=== PATIENT | female | born 1950 | race Caucasian/White ===

== ENCOUNTER 2020-03-13 16:47 | Outpatient (CLI) | payer MEDICARE | END 2020-03-13 16:48 | disposition critical access hospital (66) | LOC: EMS 16:47 | PROVIDERS: ATTEND Surgery | DX: R53.1 Weakness (principal) | CPT/HCPCS: A0425; A0429 ==

== ENCOUNTER 2020-03-13 17:29 | Inpatient (IN) | payer MEDICARE ==
--- NOTE | 2020-03-13 18:02 | XRAY Report ---
PROCEDURE: Chest 1 View X-Ray INDICATIONS: Chest Pain TECHNIQUE: One view of the chest was acquired. COMPARISON: None FINDINGS: Surgical changes and devices: None. Lungs and pleura: No pleural effusions or pneumothorax. There are diffuse interstitial radiopacities . Mediastinum: Mediastinal contours appear normal. Heart size is mildly enlarged. Bones and chest wall: No suspicious bony lesions. Overlying soft tissues appear unremarkable. IMPRESSION: 1. Diffuse interstitial radiopacities and cardiomegaly suggesting mild congestive failure. Reviewed by: Leila Recinos MD on 03/13/2020 5:00 PM AMY Approved by: Leila Recinos MD on 03/13/2020 5:00 PM AMY Station ID: [id number]
[2020-03-13 18:16] LABS: BASOPHILS % (AUTO) 0.3 %; EOSINOPHILS % (AUTO) 0.1 %; HGB - HEMOGLOBIN 12.3 g/dL (12.0-16.0); LYMPHOCYTES % (AUTO) 3.4 %; MEAN CORPUSCULAR HEMOGLOBIN 30.4 pg (27.0-31.0); MEAN CORPUSCULAR HGB CONC 32.3 g/dL (32.0-36.0); MEAN CORPUSCULAR VOLUME 94.3 fL (81.0-99.0); MEAN PLATELET VOLUME 11.4 fL (7.9-10.8); MONOCYTES % (AUTO) 7.6 %; NEUTROPHILS % (AUTO) 87.3 %; PLT - PLATELET COUNT 402 10^3/uL (130-450); RED BLOOD COUNT 4.04 10^6/uL (4.20-5.40); RED CELL DISTRIBUTION WIDTH 14.1 % (12.0-15.0); WHITE BLOOD COUNT 26.2 x10^3/uL (4.8-10.8)
[2020-03-13 18:28] LABS: ABNORMAL LYMPHS % (MANUAL) 0 %
[2020-03-13 18:34] LABS: ALBUMIN 3.2 g/dL (3.2-5.5); ALBUMIN/GLOBULIN RATIO 0.7 (1.0-2.2); BILIRUBIN,TOTAL 0.9 mg/dL (0.2-1.0); CALCIUM 9.2 mg/dL (8.5-10.3); CREATININE 0.7 mg/dL (0.4-1.0); TOTAL PROTEIN 7.5 g/dL (6.7-8.2)
--- NOTE | 2020-03-13 18:46 | ED Physician Documentation ---
History of Present Illness - Stated complaint Stated Complaint: UNABLE TO WALK - Chief complaint Chief Complaint: General - Additonal information Additional information: 69-year-old female presents to the emergency department because she was unable to get out of her vehicle. She reports that for a long time perhaps at least a few months that she is only been able to walk a very short distance. When she goes to the store she will typically use a scooter in the store. Today when she returned home she simply could not to get out of her car and called the ambulance. Therefore she is here for evaluation. Patient denies chest pain or shortness of breath. She denies that she has any fevers. She denies belly pain or dysuria. She reports that she has not been to a doctor in many years and takes no prescribed medications. She does report to me that she lives alone and does not have any running water. On exam she has very very poor hygiene. Both of her lower legs are quite, swollen and erythematous, dirty with multiple venous stasis ulcers noted. She also has a very large decubitus on her left heel that due to contamination I am unable to stage at this time Review of Systems Constitutional: reports: Reviewed and negative Ears: reports: Reviewed and negative Nose: reports: Reviewed and negative Throat: reports: Reviewed and negative Cardiac: reports: Reviewed and negative Respiratory: reports: Reviewed and negative GI: reports: Reviewed and negative : reports: Reviewed and negative Skin: reports: Lesions (BLE; decubitus ulcer left heel; venous stasis ulcer's BLE) Musculoskeletal: reports: Reviewed and negative Neurologic: reports: Reviewed and negative PD PAST MEDICAL HISTORY - Past Medical History Cardiovascular: None Respiratory: None Neuro: None Endocrine/Autoimmune: None GI: None : None HEENT: None Psych: None Musculoskeletal: None Derm: None - Past Surgical History Past Surgical History: No - Present Medications Home Medications: Ambulatory Orders Medication Instructions Recorded Confirmed No Known Home Medications 03/13/20 03/13/20 - Allergies Allergies/Adverse Reactions: Allergies Allergy/AdvReac Type Severity Reaction Status Date / Time No Known Drug Allergies Allergy Verified 03/13/20 17:38 - Social History Does the pt smoke?: No Smoking Status: Never smoker Does the pt drink ETOH?: No Does the pt have substance abuse?: No - Immunizations Immunizations are current?: No PD ED PE EXPANDED - General General: Alert, No acute distress, Disheveled, poorly kept, Other (generally dirty, poor hygeine) - HEENT HEENT: PERRL - Eyes Eyes: PERRL, Normal accommodation - Neck Neck: Supple w/out meningeal sx, No tenderness. No: JVD present - Cardiac Cardiac: Regular Rate, Regular Rhythm, Murmur Present, Radial strong equal, Pedal strong equal, Cap refill < 2 sec - Respiratory Respiratory: Clear to ausultation miguel. No: Distress, Labored - Abdomen Abdomen: Normal Bowel sounds. No: Tender to palpation - Extremities Extremities: Other (Grossly swollen bilateral lower extremities from the toes to the knees. Significant erythema of both legs with multiple venous stasis ulcers bilaterally. The left heel with a large 3 x 4 cm decubitus ulcer. Due to decontamination I am unable to visualize the bed of the wound.) Results - Vitals Vitals: Vital Signs - 24 hr 03/13/20 03/13/20 03/13/20 17:38 18:13 20:00 Temperature 36.9 C 37 C Heart Rate 56 L 85 89 Respiratory 18 19 20 Rate Blood Pressure 121/99 H 114/101 H 110/80 O2 Saturation 100 100 98 Oxygen O2 Source Room air - Labs Labs: Laboratory Tests 03/13/20 03/13/20 03/13/20 18:00 18:00 18:00 WBC 26.2 H RBC 4.04 L Hgb 12.3 Hct 38.1 MCV 94.3 MCH 30.4 MCHC 32.3 RDW 14.1 Plt Count 402 MPV 11.4 H Neut # (Auto) Not Reportable Lymph # (Auto) Not Reportable [place] # (Auto) Not Reportable Eos # (Auto) Not Reportable Baso # (Auto) Not Reportable Absolute Nucleated RBC Not Reportable Total Counted 100 Band Neuts % (Manual) 3 Abnorm Lymph % (Manual) 0 Nucleated RBC % Not Reportable Neutrophils # (Manual) 23.3 H Lymphocytes # (Manual) 0.8 L Monocytes # (Manual) 2.1 H Eosinophils # (Manual) 0.0 Basophils # (Manual) 0.0 Differential Comment MANUAL DIFFERENTIAL Platelet Estimate NORMAL (130-450,000) Platelet Morphology NORMAL APPEARANCE RBC Morph Micro Appear NORMAL APPEARANCE Sodium 136 Potassium 2.6 L Chloride 97 L Carbon Dioxide 24 Anion Gap 15.0 H BUN 28 H Creatinine 0.7 Estimated GFR (MDRD) 83 L Glucose 120 H Lactic Acid Calcium 9.2 Total Bilirubin 0.9 AST 43 H ALT 41 Alkaline Phosphatase 128 H Troponin I High Sens 26.9 H* B-Natriuretic Peptide Total Protein 7.5 Albumin 3.2 Globulin 4.3 H Albumin/Globulin Ratio 0.7 L Lipase 21 L TSH Urine Color Urine Clarity Urine pH Ur Specific [place] Urine Protein Urine Glucose (UA) Urine Ketones Urine Occult Blood Urine Nitrite Urine Bilirubin Urine Urobilinogen Ur Leukocyte Esterase Urine RBC Urine WBC Ur Squamous Epith Cells Urine Bacteria Urine Casts Ur Microscopic Review Urine Culture Comments 03/13/20 03/13/20 03/13/20 18:00 18:00 18:58 WBC RBC Hgb Hct MCV MCH MCHC RDW Plt Count MPV Neut # (Auto) Lymph # (Auto) [place] # (Auto) Eos # (Auto) Baso # (Auto) Absolute Nucleated RBC Total Counted Band Neuts % (Manual) Abnorm Lymph % (Manual) Nucleated RBC % Neutrophils # (Manual) Lymphocytes # (Manual) Monocytes # (Manual) Eosinophils # (Manual) Basophils # (Manual) Differential Comment Platelet Estimate Platelet Morphology RBC Morph Micro Appear Sodium Potassium Chloride Carbon Dioxide Anion Gap BUN Creatinine Estimated GFR (MDRD) Glucose Lactic Acid 1.2 Calcium Total Bilirubin AST ALT Alkaline Phosphatase Troponin I High Sens B-Natriuretic Peptide 110 H Total Protein Albumin Globulin Albumin/Globulin Ratio Lipase TSH 2.05 Urine Color Urine Clarity Urine pH Ur Specific [place] Urine Protein Urine Glucose (UA) Urine Ketones Urine Occult Blood Urine Nitrite Urine Bilirubin Urine Urobilinogen Ur Leukocyte Esterase Urine RBC Urine WBC Ur Squamous Epith Cells Urine Bacteria Urine Casts Ur Microscopic Review Urine Culture Comments 03/13/20 03/13/20 19:30 19:35 WBC RBC Hgb Hct MCV MCH MCHC RDW Plt Count MPV Neut # (Auto) Lymph # (Auto) [place] # (Auto) Eos # (Auto) Baso # (Auto) Absolute Nucleated RBC Total Counted Band Neuts % (Manual) Abnorm Lymph % (Manual) Nucleated RBC % Neutrophils # (Manual) Lymphocytes # (Manual) Monocytes # (Manual) Eosinophils # (Manual) Basophils # (Manual) Differential Comment Platelet Estimate Platelet Morphology RBC Morph Micro Appear Sodium Potassium Chloride Carbon Dioxide Anion Gap BUN Creatinine Estimated GFR (MDRD) Glucose Lactic Acid Calcium Total Bilirubin AST ALT Alkaline Phosphatase Troponin I High Sens 26.5 H* B-Natriuretic Peptide Total Protein Albumin Globulin Albumin/Globulin Ratio Lipase TSH Urine Color YELLOW Urine Clarity CLEAR Urine pH 6.0 Ur Specific [place] 1.025 Urine Protein 30 H Urine Glucose (UA) NEGATIVE Urine Ketones TRACE Urine Occult Blood NEGATIVE Urine Nitrite NEGATIVE Urine Bilirubin NEGATIVE Urine Urobilinogen 1 (NORMAL) Ur Leukocyte Esterase NEGATIVE Urine RBC None Seen Urine WBC 0-3 Ur Squamous Epith Cells RARE Squamous Urine Bacteria None Seen Urine Casts 3-5 Hyaline Casts Ur Microscopic Review INDICATED Urine Culture Comments NOT INDICATED PD MEDICAL DECISION MAKING - ED course Complexity details: reviewed results, re-evaluated patient, considered d ifferential, d/w patient, d/w web consultant (Felisha Keys MD) ED course: 69-year-old female presents to the emergency department because she could not exit her vehicle after going to the store. It appears that she has been having progressive lower extremity swelling over the last few months. She states that she did not realize that her legs were swollen but she has been having more difficulty getting around and has been using a scooter when she goes to the store. On presentation she had significant swelling of the lower extremities with cellulitis. There were multiple superficial ulcers on the anterior shins and posterior pemberton most consistent with the venous stasis ulcerations. She also has 2 very large decubitus ulcers on both of her heels that were grossly contam inated with dirt and debris. On exam she does have marked leukocytosis. She did not have an elevated lactic acid and her vital signs were otherwise normal. She does not present as septic or in septic shock. Her urine was evaluated and grossly contaminated. The likely source of leukocytosis is her lower extremity wounds. I did start her on vancomycin. Also of concern is a mildly elevated BNP. Though it is only 100, given her morbid obesity it is likely falsely decreased. Her chest x-ray does show an interstitial pattern most consistent with some heart failure. An echogardiogram for the AM is pending. There is also concerned that this older lady has been living alone without running water at her house which is likely contributing to the dirty contaminated wounds that she reports that she has been unable to shower. Nursing staff did make an APS report. As patient was not able to safely exit the bed in the emergency department, could not ambulate I did not feel that she could be safely discharged with oral antibiotics and therefore presented the case for admission to Dr. Keys. She will be brought into the hospital for IV antibiotics and further wound care and evaluation. She is noted to be hypokalemic with a potassium of 2.6. I did initiate potassium replacement here in the emergency department. Departure - Departure Disposition: 67 [facility] DC/Xfer Clinical Impression: Cellulitis, Decubitus ulcer, Ventricular bigeminy Discharge Date/Time: 03/13/20 20:53
[2020-03-13 18:53] LABS: BAND NEUTROPHILS % (MANUAL) 3 %; LYMPHOCYTES # (MANUAL) 0.8 10^3/uL (1.5-3.5); LYMPHOCYTES % (MANUAL) 3 %; MONOCYTES # (MANUAL) 2.1 10^3/uL (0.0-1.0)
[2020-03-13 18:54] LABS: DIFFERENTIAL COMMENT MANUAL DIFFERENTIAL; PLATELET ESTIMATE, MANUAL NORMAL (130-450,000) (NORMAL); PLATELET MORPHOLOGY NORMAL APPEARANCE (NORMAL); RBC MORPHOLOGY (MULTIPLE) NORMAL APPEARANCE (NORMAL)
[2020-03-13 19:51] LABS: GLUCOSE, URINE (UA) NEGATIVE (NEGATIVE); KETONES,URINE (UA) TRACE mg/dL (NEGATIVE); LEUKOCYTE ESTERASE, URINE NEGATIVE (NEGATIVE); NITRITE,URINE NEGATIVE (NEGATIVE); OCCULT BLOOD,URINE NEGATIVE (NEGATIVE); PROTEIN,URINE 30 mg/dL (NEGATIVE); UROBILINOGEN,URINE 1 (NORMAL) E.U./dL (NORMAL)
[2020-03-13 19:57] LABS: BILIRUBIN,URINE NEGATIVE (NEGATIVE); CLARITY,URINE CLEAR (CLEAR); ICTOTEST,URINE NEGATIVE
[2020-03-13] MEDS ORDERED: ONDANSETRON ODT 4 MG TABLET TL PRN (20:02)
[2020-03-13] MEDS ORDERED: oxyCODONE 5 MG TABLET PO PRN (20:02)
[2020-03-13] MEDS ORDERED: ONDANSETRON 4 MG/2 ML VIAL IVP PRN (20:02)
[2020-03-13] MEDS ORDERED: SODIUM CHLORIDE FLUSH 0.9% 10 ML SYRINGE IVP PRN (20:02)
[2020-03-13 20:05] LABS: BACTERIA,URINE None Seen /HPF (None Seen); CASTS, URINE 3-5 Hyaline Casts /LPF; RBC,URINE None Seen /HPF (0-5); SQUAMOUS EPITHELIAL CELL,UR RARE Squamous (<= Few)
--- NOTE | 2020-03-13 20:15 | HISTORY & PHYSICAL EXAMINATION ---
Chief Complaint - Chief Complaint Chief Complaint: weakness and can't get out of car History of Present Illness - Admitted From Admitted From:: Home via EMS - History Obtained From Records Reviewed: [facility] History obtained from: Chanelle MABRY Exam Limitations: none - History of Present Illness HPI Comment/Other: 69-year-old female who is 5 foot 3 inches tall and weighs 114 kg that presents to the emergency room via EMS, unable to get out of her car to ambulate into her home. She lives alone, but her house does not have running water For the last 2 months because a pipe broke. She just has not gotten around to getting it fixed. She does not have a primary care provider. She takes no medications on a regular basis. She had gone to the grocery store in a car, came back and try to get out of her car and realized that her legs were aching so tremendously she just could not make it. She was hoping that EMS would just take her into her home when she called them. But her home situation is not livable. As such EMS brought her to the emergency room. She states that she has been getting gradually weaker and weaker.This is over the last couple of weeks. She cannot really say why. She denies fever, cough, chills. She denies urgency, frequency dysuria. In 2016 she almost fell down the steps in her house and has been terrified of falling ever since. So she has been spending more more time downstairs. She spends most of her time sedentary, watching DVDs and getting caught up on TV shows that she did not watch when she was really working. She has noticed that her legs are getting more swollen but has not really paid attention to that. Her legs are painful are in her calves because of ulcers. Her heels are not very painful to stand on now. She recognizes that she is developed skin breakdown from sitting down for too long but cannot figure out why. She does not think that this is so severe. When she got into her car and drove to [facility], she uses the scooter there to get around. She spends most of her time sitting or laying. She cannot say why. She does not remember having high blood pressure, diabetes, or any diseases for which she takes medications. She does not like doctors and will not see 1.She is to have a fairly active life in her correction. She went to the [employer] with girlfriends, took short walks with him. Went out to restaurants. But ever since Covid, she has not left her house in months. In the emergency room she was evaluated by CLOTILDE Rievra. Afebrile, heart rate 56, 100% room air saturated, respirations 18 and unlabored and a blood pressure of 121/99. Physical exam without of an exceedingly disheveled morbidly obese female that had severe, severe bad body odor. Pertinent findings included swollen legs with venous stasis, ulcers on her legs, and decubitus ulcers of her heels. On laboratory studies she is hypokalemic, BUN is 28. White cell count is 26.2. Urinalysis is contaminated with squamous cells. Culture not indicated. Chest x-ray has diffuse interstitial radiopacities and cardiomegaly suggestive of mild congestive heart failure. Her BNP is 110. TSH is 2.05. Lactic acid 1.2. She is now admitted to the hospital to treat the cellulitis of her legs, decubitus ulcers of her heels, and evaluate for possible new onset congestive heart failure. 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 He had metastatic prostate cancer. Mom just March 2019 of complications of ulcerative colitis after being in the hospital for a month. The patient's brother was supposed to be taking care of her, but he is an alcoholic, was failing to give her her medications and feed her and she ended up dying of complications. 1 brother is an alcoholic. 1 sister is healthy without high blood pressure, diabetes, dementia, heart attack, stroke. 2 children are completely healthy. Daughter lives in [place], and son lives in [place]. Living arrangement: At home Living Situation: Alone Social History Notes: Never smoked. Never really drank. No history of recreational substance abuse. She is happily . Says that the best thing in her life was retiring. She works for [employer] for close to 25 years. 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 She loves being at home by herself. So the pandemic situation is something that did not bother her. She does not have any understanding that her self neglect may have led to this current situation. She stoutly maintains that she is able to take care of herself. She does not want us to discuss any of this with her daughter. Taiwo kinsey will be coming over from [place] tomorrow. I have explained to her that Adult Protective Services will most likely be notified. It would help if she, social work, and the daughter can sit down to discuss how to move forward and keep her safe. - Substance History Use: Uses substance without health or social issues: NONE Abuse: Recurrent use of substance despite neg consequences: NONE Dependence: Experiences withdrawal or developed tolerances: NONE - POLST Patient has POLST: No POLST Status: Full Code Meds/Allgy - Home Medications Home Medications: Ambulatory Orders Medication Instructions Recorded Confirmed No Known Home Medications 03/13/20 03/13/20 - Allergies Allergies/Adverse Reactions: Allergies Allergy/AdvReac Type Severity Reaction Status Date / Time No Known Drug Allergies Allergy Verified 03/13/20 17:38 Review of Systems - Constitutional Constitutional: reports: Weakness, Poor appetite (She last ate yesterday. Has not eaten today. Shops about every 8 to 9 days for the week. She thinks that she has been eating adequately.). denies: Fatigue, Fever, Chills, Malaise - Eyes Eyes: denies: Irritation, Amaurosis, Blurred vision - Ears, Nose & Throat Ears, Nose & Throat: denies: Hearing loss, Hearing aids, Vertigo, Nasal pain, Nasal discharge, Sore throat - Cardiovascular Cariovascular: reports: Edema, Decr. exercise tolerance. denies: Irregular heart rate, Palpitations, Chest pain, Lightheadedness, Syncope, Exertional dyspnea - Respiratory Respiratory: denies: Cough, Sputum production, Wheezing, Snoring, SOB at rest, SOB with exertion - Gastrointestinal Gastrointestinal: denies: Abdominal pain, Abdominal distention, Constipation, Diarrhea, Change in bowel habits, Rectal bleeding, Nausea, Vomiting - Genitourinary Genitourinary: reports: Incontinence. denies: Dysuria, Frequency, Urgency, Hematuria - Musculoskeletal Musculoskeletal: reports: Muscle pain (of legs w cramping), Back pain, Muscle aches (spasms often of legsand uses icey hot). denies: Gout, Joint pain - Integumentary Integumentary: reports: Rash (red lower legs for unknown time), Lesions. denies: Pruritis (of legs and feet) - Neurological Neurological: reports: General weakness. denies: Focal weakness, Headache, Dizziness, Memory problems, Pre-existing deficit - Psychiatric Psychiatric: denies: Depression, Anxiety, Suicidal, Hallucinations - Endocrine Endocrine: denies: Polyuria, Polydypsia, Polyphagia - Hematologic/Lymphatic Hematologic/Lymphatic: denies: Anemia, Bruising, Petechiae Prior Level of Functionality: independent with ADLs and doesn't acknowledge need for help. drives. hasn't bathed in 2 months. uses walker in home bc afraid to fall. pays own bills. Exam - Vital Signs Reviewed Vital Signs: Yes Vital Signs: Vital Signs x48h Temp Pulse Resp BP Pulse Ox 03/13/20 20:00 37 C 89 20 110/80 98 03/13/20 18:13 85 19 114/101 H 100 03/13/20 17:38 36.9 C 56 L 18 121/99 H 100 - Physical Exam General Appearance: positive: Alert, Moderate distress (from legs/calves spasm and pain), Other (morbidly obese, dishevelled, bad body odor) Eyes Bilateral: positive: PERRL ENT: positive: Dry mucous membranes Neck: positive: No JVD. negative: Lymphadenopathy (R), Lymphadenopathy (L), Stiff neck, Carotid bruit Respiratory: positive: No respiratory distress. negative: Wheezes, Rales, Rhonchi Cardiovascular: positive: Regular rate & rhythm. negative: Systolic murmur, Gallop/S4, Friction rub Abdomen: positive: Nml bowel sounds, No distention. negative: Guarding, Rebound Skin: positive: Other (red distal) Extremities: positive: Pedal edema (Tense of both calves, shins, down to feet. Feet have an elephantiasis type look. Skin is tight and red. On the anterior shins there is multiple skin ulcers, stage II, on both legs. Large stage II ulcer both calves. Heel ulcers, stage II going to stage III.), Calf tenderness (Spasms of cramps). negative: Full ROM (She cannot fully extend her knees, nor can she flex and extend at her ankles because of the edema.) Neurologic/Psychiatric: positive: Oriented x3, CN's nml (2-12). negative: Motor nml (Generalized weakness that requires 2 person max assist) Conclusion/Plan - Problem List (1) Cellulitis of both lower extremities Conclusion/Plan: Ulcerations of lower extremities (shins and calves) Stage II due to severe venous stasis and elevated white cell count. No fever. Moderate pain. Also have to consider that this may be just severe venous stasis dermatitis. Plan: Vancomycin was given in the emergency room. This patient has not been hospitalized, has not been on antibiotics, should not be at risk for MRSA so I will switch to Rocephin. (2) Heel ulceration Conclusion/Plan: Heel ulcers are bilateral. Patient states that she is ambulatory. But the physical exam states otherwise. Plan: Wound consult Social work consult Qualifiers: Laterality: right Non-pressure ulcer stage: with fat layer exposed Qualified Code(s): L97.412 - Non-pressure chronic ulcer of right heel and midfoot with fat layer exposed (3) Hypokalemia Conclusion/Plan: s/p 40 meq rider in ER started on NS w 20 meq. Plan: repeat in am. (4) Abnormal chest xray Conclusion/Plan: Although there is a report of a chest x-ray stating that she may have congestive heart failure, the patient herself denies shortness of breath, orthopnea. No chest pain. No palpitations. This may be radiology technique in a morbidly obese female. Plan: Check echocardiogram in the morning (5) At risk for accident in home Conclusion/Plan: A very private person. Also likes to be alone. She just cannot explain why she let herself be without running water for 2 months. She is malodorous, poor skin condition. Not eating well. She also is telling us that we are not allowed to discuss anything with her children when they come tomorrow.She describes her daughter as "an overachiever". When I ask what that means, the patient states that the daughter will make her do things. She feels that her privacy will be intrude upon and she does not want that. She states that she does have plans to clean up the bags of garbage that are piled outside her doorstep, plans on cleaning on the inside of the house with her daughter's help, and and has every intention of getting home. Plan: Social work to do little bit more care planning See if we can identify who power of property caretaker will be I have carefully explained why Adult Protective Services will be notified. (6) Leg cramps Conclusion/Plan: Mostly due to fluid shifts in this woman who is legs are large and tree trunk. Plan: Magnesium oxide 400 mg twice daily Vitamin B complex 3 times daily 12.5 mg of Benadryl at at bedtime - Lab Results Lab results reviewed: Yes Fish Bones: 03/13/20 18:00 03/13/20 18:00 - Diagnostic Imaging Results Diagnostic Imaging Results: positive: Final report reviewed Diagnostic Imaging Results Comments: PROCEDURE: Chest 1 View X-Ray INDICATIONS: Chest Pain TECHNIQUE: One view of the chest was acquired. COMPARISON: None FINDINGS: Surgical changes and devices: None. Lungs and pleura: No pleural effusions or pneumothorax. There are diffuse interstitial radiopacities. Mediastinum: Mediastinal contours appear normal. Heart size is mildly enlarged. Bones and chest wall: No suspicious bony lesions. Overlying soft tissues appear unremarkable. IMPRESSION: 1. Diffuse interstitial radiopacities and cardiomegaly suggesting mild congestive failure. Reviewed by: Leila Recinos MD on 03/13/2020 5:00 PM AKDT Approved by: Leila Recinos MD on 03/13/2020 5:00 PM AKDT - EKG Results EKG Interpreted Independently: Yes Core Measures - Anticipated LOS I expect patient to be DC'd or transferred within 96 hours.: Yes - DVT/VTE - Prophylaxis VTE/DVT Device ordered at admit?: Yes
[2020-03-13] MEDS ORDERED: VANCOMYCIN INJ 1.75 GM in SODIUM CHLORIDE 0.9% 500 ML IV SCH (21:00)
[2020-03-13] MEDS: POTASSIUM CHLOR 10 MEQ/100 ML 10 MEQ/100 ML BAG IV SCH ×3 (21:01→23:24)
[2020-03-13] MEDS ORDERED: diphenhydrAMINE 25 MG CAPSULE PO PRN (22:15)
[2020-03-13] MEDS: MAGNESIUM OXIDE 400 MG TABLET PO SCH (23:47)
[2020-03-13] MEDS: NYSTATIN POWDER 15 GM TOP SCH (23:47)
[2020-03-13] MEDS: PYRIDOXINE 100 MG TABLET PO SCH (23:48)
[2020-03-13] MEDS: SODIUM CHLORIDE FLUSH 0.9% 10 ML SYRINGE IVP SCH (23:48)
[2020-03-14] MEDS: POTASSIUM CHLOR 10 MEQ/100 ML 10 MEQ/100 ML BAG IV SCH ×5 (00:16→12:41)
[2020-03-14 05:03] LABS: BASOPHILS % (AUTO) 0.3 %; EOSINOPHILS % (AUTO) 0.1 %; HGB - HEMOGLOBIN 10.1 g/dL (12.0-16.0); LYMPHOCYTES % (AUTO) 7.2 %; MEAN CORPUSCULAR HEMOGLOBIN 30.5 pg (27.0-31.0); MEAN CORPUSCULAR HGB CONC 32.5 g/dL (32.0-36.0); MEAN PLATELET VOLUME 11.5 fL (7.9-10.8); MONOCYTES % (AUTO) 8.6 %; NEUTROPHILS % (AUTO) 82.7 %; PLT - PLATELET COUNT 334 10^3/uL (130-450); RED BLOOD COUNT 3.31 10^6/uL (4.20-5.40); RED CELL DISTRIBUTION WIDTH 14.3 % (12.0-15.0); WHITE BLOOD COUNT 17.5 x10^3/uL (4.8-10.8)
[2020-03-14 05:04] LABS: CALCIUM 8.3 mg/dL (8.5-10.3); CREATININE 0.6 mg/dL (0.4-1.0)
[2020-03-14 05:11] LABS: ABNORMAL LYMPHS % (MANUAL) 0 %
[2020-03-14 05:45] LABS: BAND NEUTROPHILS % (MANUAL) 2 %; DIFFERENTIAL COMMENT MANUAL DIFFERENTIAL; LYMPHOCYTES # (MANUAL) 1.4 10^3/uL (1.5-3.5); LYMPHOCYTES % (MANUAL) 8 %; MONOCYTES # (MANUAL) 1.1 10^3/uL (0.0-1.0); PLATELET ESTIMATE, MANUAL NORMAL (130-450,000) (NORMAL); RBC MORPHOLOGY (MULTIPLE) NORMAL APPEARANCE (NORMAL)
[2020-03-14] MEDS: SODIUM CHLORIDE FLUSH 0.9% 10 ML SYRINGE IVP SCH ×2 (08:25→16:28)
[2020-03-14 08:29] LABS: PHOSPHORUS 2.7 mg/dL (2.5-4.6)
[2020-03-14] MEDS ORDERED: cefTRIAXone 2 GM in SODIUM CHLORIDE 0.9% MINIBAG 100 ML IV SCH (09:00)
[2020-03-14] MEDS ORDERED: cefTRIAXone 1 GM in SODIUM CHLORIDE 0.9% MINIBAG 100 ML IV SCH (09:00)
[2020-03-14] MEDS: MAGNESIUM OXIDE 400 MG TABLET PO SCH (09:13)
[2020-03-14] MEDS: NYSTATIN POWDER 15 GM TOP SCH ×2 (09:13→20:40)
[2020-03-14] MEDS: PYRIDOXINE 100 MG TABLET PO SCH ×2 (09:13→20:40)
[2020-03-14] MEDS: ENOXAPARIN 40 MG/0.4 ML SYRINGE SUBQ SCH (09:13)
[2020-03-14] MEDS ORDERED: MIN OIL/DIMETHICON/COCONUT OIL 92 GM TUBE TOP PRN (09:42)
[2020-03-14] MEDS ORDERED: ZINC OXIDE 20% OINT 30 GM TUBE TOP PRN (09:42)
[2020-03-14] MEDS ORDERED: POTASSIUM CHLORIDE 20 MEQ TABLET PO ONE (12:00)
[2020-03-14] MEDS: ACETAMINOPHEN 325 MG TABLET PO PRN ×2 (12:47→18:43)
--- NOTE | 2020-03-14 15:48 | PROVIDER PROGRESS NOTE ---
Assessment/Plan - Problem List (1) Cellulitis of both lower extremities Assessment/Plan: WBC is down to 17 from 26 at the admission. Patient has swallow lower extremity With erythema, Also considered patient have severe venous stasis dermatitis, Patient has elevated WBC but without fever. Continue antibiotics, Blood culture is pending. (2) Heel ulceration Conclusion/Plan: Patient has bilaterally Heel ulcers with black tissue. Patient report that she is ambulatory. Wound consult already saw pt, put dressing change order for nurse. MRI to r/o bony infection, wound culture is done and pending, order orthopedics consult continue current antibiotics, then depending wound culture to adjust antibiotics. (3)various stage pressure ulcers in multiple locations Patient was found to have multiple locations in her back and buttock location to have pressure, at stage 2-3. Wound care already saw the patient, have dressing change order for nurse. Skin care and turn pt dressing change wound culture is pending, continue antibiotics social service liaison is consulted, pt might need nurse home care or SNF consult with PT/OT (4) Hypokalemia Conclusion/Plan: resolved (5) Abnormal chest xray Conclusion/Plan: echocardiogram reveals Normal EF, no aortic stenosis, but elevated RVSP. Patient was reported to have hypotension but the patient is asymptomatic. recheck patient blood pressure, systolic blood pressure has 97 Order 500 bolus normal saline intravenous, patient had a slightly elevated troponin, repeated troponin. Continue telemetry Tachycardia was resolved but the patient also has multiple Ventricular bigeminy with bradycardia. Patient denies any chest pain, dizziness, lightheaded. Patient is fine when she worked with physical therapist. (6) At risk for accident in home Conclusion/Plan: Continue social work consult. Patient let we discussed patient care with her daughter and her sister now. consult with personal shopper (7) Leg cramps Conclusion/Plan: Patient feel better. Agree it is mostly due to fluid shifts in this woman who is legs are large and tree trunk. US to r/o DVT and LILO continue Magnesium oxide 400 mg twice daily Vitamin B complex 3 times daily 12.5 mg of Benadryl at at bedtime - Current Meds Current Meds: Current Medications Generic Name Dose Route Start Last Admin Trade Name Freq PRN Reason Stop Dose Admin Acetaminophen 650 mg 03/13/20 20:02 03/14/20 12:47 Tylenol PO 650 mg Q4HR PRN Administration Pain 1 to 4 Enoxaparin Sodium 40 mg 10/28/20 09:00 03/14/20 09:13 Lovenox SUBQ 40 mg DAILY CORDELL Administration Ceftriaxone Sodium 2 gm/ 100 mls @ 200 mls/hr 03/14/20 09:00 03/14/20 10:50 Sodium Chloride IV Infused DAILY COR[facility] Infusion Magnesium Oxide 400 mg 03/13/20 22:15 03/14/20 09:13 Mag Ox PO 400 mg DAILYWM CORDE[facility] Administration Nystatin 1 applic 03/13/20 23:00 03/14/20 09:13 Nystop TOP 1 applic BID CORDELL Administration Pyridoxine HCl 100 mg 03/13/20 23:00 03/14/20 09:13 Vitamin B-6 PO 100 mg BID CORDELL Administration Sodium Chloride 10 ml 03/13/20 20:02 03/14/20 09:26 Normal Saline Flush 0.9% IVP 10 ml PRN PRN Administration NEEDED PER PROVIDER ORDERS Sodium Chloride 10 ml 03/14/20 01:00 03/14/20 08:25 Normal Saline Flush 0.9% IVP 10 ml 0100,0900,1700 CORDELL Administration - Lab Result Fish Bone Diagrams: 03/14/20 04:25 03/14/20 14:55 - Additional Planning My Orders: My Active Orders 03/14/20 Evaluate and Treat OT [OT] Routine Evaluate and Treat PT [PT] Routine 03/14/20 08:18 Wound Care - MAC [RC] .ONCE 03/14/20 09:00 cefTRIAXone [Rocephin] 2 gm Sodium Chloride 0.9% Minibag [Normal Saline 0.9% Minibag] 100 ml IV DAILY 03/14/20 10:30 CUL,WOUND (AEROBIC) [RM] Urgent 03/14/20 14:17 Miscellaenous Nursing Order [RC] DAILY 03/14/20 14:33 FOOT WO - LT [MRI] Routine FOOT WO - RT [MRI] Routine 03/14/20 14:50 Straight Catheter Insertion [RC] ONCE 03/14/20 14:52 Out of bed 3+ hours today [RC] TID 03/14/20 15:38 Miscellaenous Nursing Order [RC] DAILY 03/14/20 17:00 Multivitamin W/Minerals [Theragran M] 1 tab PO DAILYWM Saccharomyces Boulardii [Florastor] 250 mg PO BIDWM 03/15/20 05:00 BMP - BASIC METABOLIC PANEL [CHEM] DAILYLAB CBC - COMP BLD CT W/AUTO DIFF [HEME] DAILYLAB 03/16/20 05:00 BMP - BASIC METABOLIC PANEL [CHEM] DAILYLAB CBC - COMP BLD CT W/AUTO DIFF [HEME] DAILYLAB 03/17/20 05:00 BMP - BASIC METABOLIC PANEL [CHEM] DAILYLAB CBC - COMP BLD CT W/AUTO DIFF [HEME] DAILYLAB 03/18/20 05:00 BMP - BASIC METABOLIC PANEL [CHEM] DAILYLAB CBC - COMP BLD CT W/AUTO DIFF [HEME] DAILYLAB 03/19/20 05:00 BMP - BASIC METABOLIC PANEL [CHEM] DAILYLAB CBC - COMP BLD CT W/AUTO DIFF [HEME] DAILYLAB Subjective - Subjective Patient Reports: Feeling Better Objective Vital Signs: Vital Signs - 24 hr 03/13/20 03/13/20 03/13/20 17:38 18:13 20:00 Temperature 36.9 C 37 C Heart Rate 56 L 85 89 Heart Rate [ Brachial] Respiratory 18 19 20 Rate Blood Pressure 121/99 H 114/101 H 110/80 Blood Pressure [Left Brachial artery] Blood Pressure [Left Radial artery] Blood Pressure [Right Brachial artery] O2 Saturation 100 100 98 03/13/20 03/14/20 03/14/20 21:00 00:00 07:39 Temperature 37.3 C 36.9 C 37.3 C Heart Rate Heart Rate [ 61 59 L 53 L Brachial] Respiratory 20 20 20 Rate Blood Pressure Blood Pressure [Left Brachial artery] Blood Pressure 108/53 L 100/42 L [Left Radial artery] Blood Pressure 117/40 L [Right Brachial artery] O2 Saturation 98 96 97 03/14/20 03/14/20 03/14/20 11:22 12:06 12:49 Temperature 37.3 C 36.4 C L Heart Rate 57 L Heart Rate [ 45 L 105 H Brachial] Respiratory 16 22 Rate Blood Pressure Blood Pressure 103/47 L [Left Brachial artery] Blood Pressure 98/44 L [Left Radial artery] Blood Pressure [Right Brachial artery] O2 Saturation 97 99 Oxygen O2 Source Room air I&O (Last 24 Hrs): Intake and Output Totals x24h 03/12/20 03/13/20 03/14/20 23:59 23:59 23:59 Intake Total 300 2260.000 Balance 300 2260.000 General: Alert, Oriented x3, No acute distress HEENT: Atraumatic Neck: Supple Lymphatic: no adenopathy Neuro: Alert, Non Focal, Oriented Times 3 Cardiovascular: Regular rate, Normal S1, Normal S2 Respiratory: Chest non-tender, No respiratory distress, Breath sounds nml Abdomen: Normal bowel sounds, Soft - Results Results: Laboratory Results WBC 17.5 x10^3/uL (4.8-10.8) H 03/14/20 04:25 RBC 3.31 10^6/uL (4.20-5.40) L 03/14/20 04:25 Hgb 10.1 g/dL (12.0-16.0) L 03/14/20 04:25 Hct 31.1 % (37.0-47.0) L 03/14/20 04:25 MCV 94.0 fL (81.0-99.0) 03/14/20 04:25 MCH 30.5 pg (27.0-31.0) 03/14/20 04:25 MCHC 32.5 g/dL (32.0-36.0) 03/14/20 04:25 RDW 14.3 % (12.0-15.0) 03/14/20 04:25 Plt Count 334 10^3/uL (130-450) 03/14/20 04:25 MPV 11.5 fL (7.9-10.8) H 03/14/20 04:25 Neut # (Auto) Not Reportable 03/14/20 04:25 Lymph # (Auto) Not Reportable 03/14/20 04:25 [place] # (Auto) Not Reportable 03/14/20 04:25 Eos # (Auto) Not Reportable 03/14/20 04:25 Baso # (Auto) Not Reportable 03/14/20 04:25 Absolute Nucleated RBC Not Reportable 03/14/20 04:25 Total Counted 100 03/14/20 04:25 Band Neuts % (Manual) 2 % (0-10) 03/14/20 04:25 Abnorm Lymph % (Manual) 0 % 03/14/20 04:25 Nucleated RBC % Not Reportable 03/14/20 04:25 Neutrophils # (Manual) 15.1 10^3/uL (1.5-6.6) H 03/14/20 04:25 Lymphocytes # (Manual) 1.4 10^3/uL (1.5-3.5) L 03/14/20 04:25 Monocytes # (Manual) 1.1 10^3/uL (0.0-1.0) H 03/14/20 04:25 Eosinophils # (Manual) 0.0 10^3/uL (0-0.7) 03/14/20 04:25 Basophils # (Manual) 0.0 10^3/uL (0-0.1) 03/14/20 04:25 Differential Comment MANUAL DIFFERENTIAL 03/14/20 04:25 Platelet Estimate NORMAL (130-450,000) (NORMAL) 03/14/20 04:25 Platelet Morphology NORMAL APPEARANCE (NORMAL) 03/13/20 18:00 RBC Morph Micro Appear NORMAL APPEARANCE (NORMAL) 03/14/20 04:25 Sodium 139 mmol/L (135-145) 03/14/20 04:25 Potassium 3.5 mmol/L (3.5-5.0) 03/14/20 14:55 Chloride 106 mmol/L (101-111) 03/14/20 04:25 Carbon Dioxide 24 mmol/L (21-32) 03/14/20 04:25 Anion Gap 9.0 (6-13) 03/14/20 04:25 BUN 25 mg/dL (6-20) H 03/14/20 04:25 Creatinine 0.6 mg/dL (0.4-1.0) 03/14/20 04:25 Estimated GFR (MDRD) 99 (>89) 03/14/20 04:25 Glucose 125 mg/dL (70-100) H 03/14/20 04:25 Lactic Acid 1.2 mmol/L (0.5-2.2) 03/13/20 18:58 Calcium 8.3 mg/dL (8.5-10.3) L 03/14/20 04:25 Phosphorus 2.7 mg/dL (2.5-4.6) 03/14/20 04:25 Magnesium 2.0 mg/dL (1.7-2.8) 03/14/20 04:25 Total Bilirubin 0.9 mg/dL (0.2-1.0) 03/13/20 18:00 AST 43 IU/L (10-42) H 03/13/20 18:00 ALT 41 IU/L (10-60) 03/13/20 18:00 Alkaline Phosphatase 128 IU/L (42-121) H 03/13/20 18:00 Troponin I High Sens 29.5 ng/L (2.3-14.8) H* 03/14/20 00:15 B-Natriuretic Peptide 110 pg/mL (5-100) H 03/13/20 18:00 Total Protein 7.5 g/dL (6.7-8.2) 03/13/20 18:00 Albumin 3.2 g/dL (3.2-5.5) 03/13/20 18:00 Globulin 4.3 g/dL (2.1-4.2) H 03/13/20 18:00 Albumin/Globulin Ratio 0.7 (1.0-2.2) L 03/13/20 18:00 Lipase 21 U/L (22-51) L 03/13/20 18:00 TSH 2.05 uIU/mL (0.34-5.60) 03/13/20 18:00 Urine Color YELLOW 03/13/20 19:35 Urine Clarity CLEAR (CLEAR) 03/13/20 19:35 Urine pH 6.0 PH (5.0-7.5) 03/13/20 19:35 Ur Specific [place] 1.025 (1.002-1.030) 03/13/20 19:35 Urine Protein 30 mg/dL (NEGATIVE) H 03/13/20 19:35 Urine Glucose (UA) NEGATIVE mg/dL (NEGATIVE) 03/13/20 19:35 Urine Ketones TRACE mg/dL (NEGATIVE) 03/13/20 19:35 Urine Occult Blood NEGATIVE (NEGATIVE) 03/13/20 19:35 Urine Nitrite NEGATIVE (NEGATIVE) 03/13/20 19:35 Urine Bilirubin NEGATIVE (NEGATIVE) 03/13/20 19:35 Urine Urobilinogen 1 (NORMAL) E.U./dL (NORMAL) 03/13/20 19:35 Ur Leukocyte Esterase NEGATIVE (NEGATIVE) 03/13/20 19:35 Urine RBC None Seen /HPF (0-5) 03/13/20 19:35 Urine WBC 0-3 /HPF (0-5) 03/13/20 19:35 Ur Squamous Epith Cells RARE Squamous (<= Few) 03/13/20 19:35 Urine Bacteria None Seen /HPF (None Seen) 03/13/20 19:35 Urine Casts 3-5 Hyaline Casts /LPF 03/13/20 19:35 Ur Microscopic Review INDICATED 03/13/20 19:35 Urine Culture Comments NOT INDICATED 03/13/20 19:35 ABX Reporting Has patient been on IV antibiotics over the past 48 hours?: Yes Current Medications - Current Medications Current Medications: Active Medications Acetaminophen (Tylenol) 650 mg PO Q4HR PRN PRN Reason: Pain 1 to 4 Last Admin: 03/14/20 12:47 Dose: 650 mg Documented by: Diphenhydramine HCl (Benadryl) 12.5 mg PO QPM PRN PRN Reason: Cramp Enoxaparin Sodium (Lovenox) 40 mg SUBQ DAILY [facility] Last Admin: 03/14/20 09:13 Dose: 40 mg Documented by: Ceftriaxone Sodium 2 gm/ (Sodium Chloride) 100 mls @ 200 mls/hr IV DAILY [facility] Last Infusion: 03/14/20 10:50 Dose: Infused Documented by: Magnesium Oxide (Mag Ox) 400 mg PO DAILYWM [facility] Last Admin: 03/14/20 09:13 Dose: 400 mg Documented by: Mineral Oil (Cavilon) 1 applic TOP PRN PRN PRN Reason: Skin Care Multi-Ingredient Ointment (Zinc Oxide) 1 applic TOP PRN PRN PRN Reason: Skin Care Multivitamins/Minerals (Theragran M) 1 tab PO DAILYWM [facility] Last Admin: 03/14/20 16:27 Dose: 1 tab Documented by: Nystatin (Nystop) 1 applic TOP BID [facility] Last Admin: 03/14/20 09:13 Dose: 1 applic Documented by: Ondansetron HCl (Zofran Odt) 4 mg TL Q6HR PRN PRN Reason: Nausea / Vomiting Ondansetron HCl (Zofran Inj) 4 mg IVP Q6HR PRN PRN Reason: Nausea / Vomiting Oxycodone HCl (Roxicodone) 5 mg PO Q4HR PRN PRN Reason: Pain 5 to 7 Pyridoxine HCl (Vitamin B-6) 100 mg PO BID [facility] Last Admin: 03/14/20 09:13 Dose: 100 mg Documented by: Saccharomyces Boulardii (Florastor) 250 mg PO BIDWM [facility] Last Admin: 03/14/20 16:27 Dose: 250 mg Documented by: Sodium Chloride (Normal Saline Flush 0.9%) 10 ml IVP PRN PRN PRN Reason: NEEDED PER PROVIDER ORDERS Last Admin: 03/14/20 09:26 Dose: 10 ml Documented by: Sodium Chloride (Normal Saline Flush 0.9%) 10 ml IVP 0100,0900,1700 [facility] Last Admin: 03/14/20 16:28 Dose: 10 ml Documented by: No Known Home Medications 03/13/20
[2020-03-14] MEDS ORDERED: SODIUM CHLORIDE 0.9% 1,000 ML IV ONE (16:08)
[2020-03-14] MEDS ORDERED: SODIUM CHLORIDE 0.9% 500 ML IV ONE (16:16)
[2020-03-14] MEDS: MULTIVITAMIN W/MINERALS TABLET PO SCH (16:27)
[2020-03-14] MEDS: SACCHAROMYCES BOULARDII 250 MG CAPSULE PO SCH (16:27)
[2020-03-15] MEDS: ACETAMINOPHEN 325 MG TABLET PO PRN (02:00)
[2020-03-15] MEDS: SODIUM CHLORIDE FLUSH 0.9% 10 ML SYRINGE IVP SCH ×3 (02:02→17:27)
[2020-03-15 04:48] LABS: BASOPHILS % (AUTO) 0.3 %; EOSINOPHILS # (AUTO) 0.1 10^3/uL (0.0-0.7); EOSINOPHILS % (AUTO) 0.5 %; LYMPHOCYTES % (AUTO) 13.1 %; MEAN CORPUSCULAR HEMOGLOBIN 29.3 pg (27.0-31.0); MEAN CORPUSCULAR HGB CONC 31.3 g/dL (32.0-36.0); MEAN CORPUSCULAR VOLUME 93.5 fL (81.0-99.0); MEAN PLATELET VOLUME 11.3 fL (7.9-10.8); MONOCYTES # (AUTO) 1.3 10^3/uL (0.0-1.0); MONOCYTES % (AUTO) 8.4 %; NEUTROPHILS # (AUTO) 11.7 10^3/uL (1.5-6.6); PLT - PLATELET COUNT 339 10^3/uL (130-450); RED BLOOD COUNT 3.41 10^6/uL (4.20-5.40); RED CELL DISTRIBUTION WIDTH 14.2 % (12.0-15.0); WHITE BLOOD COUNT 15.2 x10^3/uL (4.8-10.8)
[2020-03-15 05:01] LABS: CALCIUM 8.4 mg/dL (8.5-10.3); CREATININE 0.6 mg/dL (0.4-1.0); CRP - C-REACTIVE PROTEIN 10.9 mg/dL (0-1.0)
--- NOTE | 2020-03-15 07:20 | Ultrasound Report ---
PROCEDURE: Duplex Ext Veins Bilateral INDICATIONS: Bilateral lower extremity swelling, tenderness and erythema TECHNIQUE: Real-time imaging, as well as color and pulse Doppler interrogation, were performed of the deep veins of both legs from the inguinal ligament to the popliteal fossa. COMPARISON: None FINDINGS: The deep veins right and left lower extremities are normally compressible, and free of int raluminal thrombus. Color and pulse Doppler demonstrate normal phasic intravascular flow. There is normal augmentation response to distal compression maneuver. 3.2 x 1.3 x 2.3 cm nonspecific fluid collection noted in the left calf. IMPRESSION: No evidence of deep vein thrombosis involving either the right or left lower extremities. Reviewed by: Geraldine Salgado MD, PhD on 03/15/2020 7:18 AM PDT Approved by: Geraldine Salgado MD, PhD on 03/15/2020 7:18 AM PDT Station ID: [id number]
--- NOTE | 2020-03-15 08:41 | PHARMACY PROGRESS NOTE ---
- Best Possible Medication History Admit Date and Time: 03/13/202001 Processed by: Nursing Medication History completed: Yes As the person ultimately responsible for medication therapy, providers are able to order a medication from an existing home medication list in [facility] via the "Reconcile Routine" prior to Confirmation of that medication by integrated logistics support manager. Such practice is discouraged except when the physician, in their clinical judgment, deems that a medical need exists for a medication without regard to previous use.
--- NOTE | 2020-03-15 09:06 | Ultrasound Report ---
PROCEDURE: Ankle Brachial Index INDICATIONS: bilateral lower extremities heel ulcer TECHNIQUE: Ankle-brachial indices were obtained bilaterally and recorded. COMPARISONS: Venous ultrasound lower extremity same day.. FINDINGS: Right ankle brachial index (LILO): 1.6 Left ankle brachial index (LILO): 1.2 Healing potential: Ankle pressures >55 mm Hg in non-diabetics and >80 mm Hg in diabetics are likely to achieve primary h ealing of ischemic foot ulcers. Toe pressures >30 mm Hg are likely to achieve primary healing of ischemic foot ulcers, toe or transme tatarsal amputations. 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 Reviewed by: Carl Camejo MD on 03/15/2020 9:05 AM PDT Approved by: Carl Camejo MD on 03/15/2020 9:05 AM PDT Station ID: [id number]
[2020-03-15] MEDS: MAGNESIUM OXIDE 400 MG TABLET PO SCH ×2 (09:32→09:36)
[2020-03-15] MEDS: PYRIDOXINE 100 MG TABLET PO SCH (09:33)
[2020-03-15] MEDS: MULTIVITAMIN W/MINERALS TABLET PO SCH ×2 (09:33→09:36)
[2020-03-15] MEDS: SACCHAROMYCES BOULARDII 250 MG CAPSULE PO SCH ×2 (09:33→17:01)
[2020-03-15] MEDS: cefTRIAXone 2 GM in SODIUM CHLORIDE 0.9% MINIBAG 100 ML IV SCH (09:34)
[2020-03-15] MEDS: ENOXAPARIN 40 MG/0.4 ML SYRINGE SUBQ SCH (09:35)
[2020-03-15] MEDS: NYSTATIN POWDER 15 GM TOP SCH (09:35)
--- NOTE | 2020-03-15 11:51 | CONSULTATION NOTE ---
DATE OF SERVICE: 03/15/2020 Physician: Juan Lewis MD ORTHOPEDIC INPATIENT CONSULTATION REFERRING PHYSICIAN: - hospitalist service. CHIEF COMPLAINT: "Both my legs ache." HISTORY OF PRESENT ILLNESS: The patient is a 69-year-old obese woman with limited mobility , admitted recently to the hospital for evaluation of worsening weakness and limited mobility. She s tates she has had bilateral swollen lower extremities for a long time. She has started to develop so me redness and some ulceration of the anterior calf. What is of even more significance is that she h as had bilateral fairly deep ulcerations, left worse than right on the plantar aspect of both heels. Her mobility at home has been quite restricted, often times using a scooter to get around at stores. She has had no particular fever or other constitutional symptoms per se. PHYSICAL EXAMINATION: The patient's bilateral legs were inspected outside of her soft dressings. Sh lucia has some mild erythema and some superficial abrasions/ulcerations over the anterior calves of both legs. Examination of the plantar aspects of her heels show a deep eschar involving the left heel lucille t probably measures about 2 cm diameter. On the right side, there is more of a superficial eschar ag ain in the mid portion of the plantar aspect of the right heel. MRI scan - apparently was done on the right side only last evening, though the report is not availabl e for review. The patient's ABIs were essentially within normal limits and symmetrical. Venous plex us scan showed no evidence of deep venous thromboses in the extremities. ASSESSMENT: Pressure ulcerations of bilateral heels - chronic in nature. PLAN: Await the MRI scan to determine if there might be some associated calcaneal osteomyelitis. Wo uld also get some plain x-rays of her calcanei to see if there is any radiographic evidence of bony d estruction consistent with a likely chronic osteomyelitis. Decubitus care should be managed with the wound care service if possible to see if we could debride the ulceration and allow it to eventually close and epithelialize. There is some difficulty doing it was just nonsurgical intervention, a plas tic surgery consultation could be obtained to see if any type of flap may be helpful to close this ul ceration. TD: 03/15/2020 10:55
--- NOTE | 2020-03-15 15:00 | PROVIDER PROGRESS NOTE ---
Assessment/Plan - Problem List (1) Cellulitis of both lower extremities Assessment/Plan: 1029, slightly reduced swelling, WBC trended down 15 from 17 yesterday,CRP down to 11 from yesterday 13. We will continue antibiotics, continue rice patient lower extremity To help venous blood return. Blood culture is negative WBC is down to 17 from 26 at the admission. Patient has swallow lower extremity With erythema, Also considered patient have severe venous stasis dermatitis, Patient has elevated WBC but without fever. Continue antibiotics, Blood culture is pending. (2) Heel ulceration Conclusion/Plan: 1029, MRI is still pending, Patient only can tolerate one lower extremity per time for MRI. We will continue follow-up with orthopedic surgeon. Wound culture show beta-hemolytic group G, And negative rods as far. Culture and sensitivity are still pending. Rocephin cover for both Bacteria right now. We will continue antibiotics. Patient has bilaterally Heel ulcers with black tissue. Patient report that she is ambulatory. Wound consult already saw pt, put dressing change order for nurse. MRI to r/o bony infection, wound culture is done and pending, order orthopedics consult continue current antibiotics, then depending wound culture to adjust antibio tics. (3)various stage pressure ulcers in multiple locations 1029, continue nurse care to prevention further pressure ulcer by turn on pt, continue dressing change according to wound care's recommendation, Patient was found to have multiple locations in her back and buttock location to have pressure, at stage 2-3. Wound care already saw the patient, have dressing change order for nurse. Skin care and turn pt dressing change wound culture is pending, continue antibiotics social media content manager is consulted, pt might need nurse home care or SNF consult with PT/OT (4) Hypokalemia Conclusion/Plan: resolved (5) Abnormal chest xray Conclusion/Plan: echocardiogram reveals Normal EF, no aortic stenosis, but elevated RVSP. Patient was reported to have hypotension but the patient is asymptomatic. r echeck patient blood pressure, systolic blood pressure has 97 Order 500 bolus normal saline intravenous, patient had a slightly elevated troponin, repeated troponin. Continue telemetry Tachycardia was resolved but the patient also has multiple Ventricular bigeminy with bradycardia. Patient denies any chest pain, dizziness, lightheaded. Patient is fine when she worked with physical therapist. (6) At risk for accident in home Conclusion/Plan: Continue social work consult. Patient let we discussed patient care with her daughter and her sister now. consult with care support representative (7) Leg cramps Conclusion/Plan: 1028, US show no DVT, LILO was unremarkable. Patient reported she feel better. Patient feel better. Agree it is mostly due to fluid shifts in this woman who is legs are large and tree trunk. US to r/o DVT and LILO continue Magnesium oxide 400 mg twice daily Vitamin B complex 3 times daily 12.5 mg of Benadryl at at bedtime - Current Meds Current Meds: Current Medications Generic Name Dose Route Start Last Admin Trade Name Freq PRN Reason Stop Dose Admin Acetaminophen 650 mg 03/13/20 20:02 03/15/20 02:00 Tylenol PO 650 mg Q4HR PRN Administration Pain 1 to 4 Enoxaparin Sodium 40 mg 03/14/20 09:00 03/15/20 09:35 Lovenox SUBQ 40 mg DAILY [facility] Administration Ceftriaxone Sodium 2 gm/ 100 mls @ 200 mls/hr 03/15/20 09:00 03/15/20 10:32 Sodium Chloride IV Infused DAILY [facility] Infusion Magnesium Oxide 400 mg 03/13/20 22:15 03/15/20 09:36 Mag Ox PO 400 mg DAILYWM [facility] Administration Mineral Oil 1 applic 03/14/20 09:42 03/14/20 20:40 Cavilon TOP 1 applic PRN PRN Administration Skin Care Multi-Ingredient Ointment 1 applic 03/14/20 09:42 03/15/20 14:21 Zinc Oxide TOP 1 applic PRN PRN Administration Skin Care Multivitamins/Minerals 1 tab 03/14/20 17:00 03/15/20 09:36 Theragran M PO 1 tab DAILYWM [facility] Administration Nystatin 1 applic 03/13/20 23:00 03/15/20 09:35 Nystop TOP Not Given BID [facility] Pyridoxine HCl 100 mg 03/13/20 23:00 03/15/20 09:33 Vitamin B-6 PO 100 mg BID [facility] Administration Saccharomyces Boulardii 250 mg 03/14/20 17:00 03/15/20 09:33 Florastor PO 250 mg BIDWM [facility] Administration Sodium Chloride 10 ml 03/13/20 20:02 03/14/20 09:26 Normal Saline Flush 0.9% IVP 10 ml PRN PRN Administration NEEDED PER PROVIDER ORDERS Sodium Chloride 10 ml 03/14/20 01:00 03/15/20 09:35 Normal Saline Flush 0.9% IVP 10 ml 0100,0900,1700 [facility] Administration - Lab Result Fish Bone Diagrams: 03/15/20 04:40 03/15/20 04:40 - Additional Planning My Orders: My Active Orders 03/14/20 14:17 Miscellaenous Nursing Order [RC] DAILY 03/14/20 14:33 FOOT WO - RT [MRI] Routine 03/14/20 14:50 Straight Catheter Insertion [RC] PRN 03/14/20 14:52 Out of bed 3+ hours today [RC] TID 03/14/20 15:38 Miscellaenous Nursing Order [RC] DAILY 03/14/20 15:46 Turn and Reposition [RC] PRN 03/14/20 17:00 Multivitamin W/Minerals [Theragran M] 1 tab PO DAILYWM Saccharomyces Boulardii [Florastor] 250 mg PO BIDWM 03/14/20 17:26 Telemetry- [RC] Q4HR 03/15/20 09:00 FOOT WO - LT [MRI] Routine cefTRIAXone [Rocephin] 2 gm Sodium Chloride 0.9% Minibag [Normal Saline 0.9% Minibag] 100 ml IV DAILY 03/15/20 11:45 Foot 2 View BILAT [XR] Routine 03/16/20 05:00 BMP - BASIC METABOLIC PANEL [CHEM] DAILYLAB CBC - COMP BLD CT W/AUTO DIFF [HEME] DAILYLAB CRP - C-REACTIVE PROTEIN [CHEM] DAILYLAB 03/17/20 05:00 BMP - BASIC METABOLIC PANEL [CHEM] DAILYLAB CBC - COMP BLD CT W/AUTO DIFF [HEME] DAILYLAB CRP - C-REACTIVE PROTEIN [CHEM] DAILYLAB 03/18/20 05:00 BMP - BASIC METABOLIC PANEL [CHEM] DAILYLAB CBC - COMP BLD CT W/AUTO DIFF [HEME] DAILYLAB CRP - C-REACTIVE PROTEIN [CHEM] DAILYLAB 03/19/20 05:00 BMP - BASIC METABOLIC PANEL [CHEM] DAILYLAB CBC - COMP BLD CT W/AUTO DIFF [HEME] DAILYLAB CRP - C-REACTIVE PROTEIN [CHEM] DAILYLAB Subjective - Subjective Patient Reports: Feeling Better Objective Vital Signs: Vital Signs - 24 hr 03/14/20 03/14/20 03/14/20 15:00 16:00 16:26 Temperature 36.9 C Heart Rate [ 51 L Brachial] Heart Rate [ Sitting] Heart Rate [ 48 L Supine] Respiratory 18 Rate Blood Pressure 84/48 L [Left Radial artery] Blood Pressure 85/44 L 97/38 L [Right Brachial artery] Blood Pressure [Sitting] Blood Pressure 119/62 [Supine] O2 Saturation 97 03/14/20 03/15/20 03/15/20 19:35 00:00 05:38 Temperature 36.6 C 36.7 C 37 C Heart Rate [ 91 96 98 Brachial] Heart Rate [ Sitting] Heart Rate [ Supine] Respiratory 20 18 18 Rate Blood Pressure [Left Radial artery] Blood Pressure 95/55 L 95/76 119/33 L [Right Brachial artery] Blood Pressure [Sitting] Blood Pressure [Supine] O2 Saturation 99 98 96 03/15/20 03/15/20 03/15/20 08:04 11:15 13:00 Temperature 36.8 C 36.8 C Heart Rate [ 46 L 95 Brachial] Heart Rate [ 59 L Sitting] Heart Rate [ 48 L Supine] Respiratory 18 20 Rate Blood Pressure [Left Radial artery] Blood Pressure 109/39 L 108/63 [Right Brachial artery] Blood Pressure 136/90 H [Sitting] Blood Pressure 119/62 [Supine] O2 Saturation 95 95 Oxygen O2 Source Room air I&O (Last 24 Hrs): Intake and Output Totals x24h 03/13/20 03/14/20 03/15/20 23:59 23:59 23:59 Intake Total 300 3400.000 300 Output Total 750 950 Balance 300 2650.000 -650 General: Alert, Oriented x3, No acute distress HEENT: Atraumatic Neck: Supple Lymphatic: no adenopathy Neuro: Alert, Non Focal, Oriented Times 3 Cardiovascular: Regular rate, Normal S1, Normal S2 Respiratory: Chest non-tender, No respiratory distress Abdomen: Normal bowel sounds, Soft, No tenderness - Results Results: Laboratory Results WBC 15.2 x10^3/uL (4.8-10.8) H 03/15/20 04:40 RBC 3.41 10^6/uL (4.20-5.40) L 03/15/20 04:40 Hgb 10.0 g/dL (12.0-16.0) L 03/15/20 04:40 Hct 31.9 % (37.0-47.0) L 03/15/20 04:40 MCV 93.5 fL (81.0-99.0) 03/15/20 04:40 MCH 29.3 pg (27.0-31.0) 03/15/20 04:40 MCHC 31.3 g/dL (32.0-36.0) L 03/15/20 04:40 RDW 14.2 % (12.0-15.0) 03/15/20 04:40 Plt Count 339 10^3/uL (130-450) 03/15/20 04:40 MPV 11.3 fL (7.9-10.8) H 03/15/20 04:40 Neut # (Auto) 11.7 10^3/uL (1.5-6.6) H 03/15/20 04:40 Lymph # (Auto) 2.0 10^3/uL (1.5-3.5) 03/15/20 04:40 [place] # (Auto) 1.3 10^3/uL (0.0-1.0) H 03/15/20 04:40 Eos # (Auto) 0.1 10^3/uL (0.0-0.7) 03/15/20 04:40 Baso # (Auto) 0.0 10^3/uL (0.0-0.1) 03/15/20 04:40 Absolute Nucleated RBC 0.00 x10^3/uL 03/15/20 04:40 Total Counted 100 03/14/20 04:25 Band Neuts % (Manual) 2 % (0-10) 03/14/20 04:25 Abnorm Lymph % (Manual) 0 % 03/14/20 04:25 Nucleated RBC % 0.0 /100WBC 03/15/20 04:40 Neutrophils # (Manual) 15.1 10^3/uL (1.5-6.6) H 03/14/20 04:25 Lymphocytes # (Manual) 1.4 10^3/uL (1.5-3.5) L 03/14/20 04:25 Monocytes # (Manual) 1.1 10^3/uL (0.0-1.0) H 03/14/20 04:25 Eosinophils # (Manual) 0.0 10^3/uL (0-0.7) 03/14/20 04:25 Basophils # (Manual) 0.0 10^3/uL (0-0.1) 03/14/20 04:25 Differential Comment MANUAL DIFFERENTIAL 03/14/20 04:25 Platelet Estimate NORMAL (130-450,000) (NORMAL) 03/14/20 04:25 Platelet Morphology NORMAL APPEARANCE (NORMAL) 03/13/20 18:00 RBC Morph Micro Appear NORMAL APPEARANCE (NORMAL) 03/14/20 04:25 Sodium 135 mmol/L (135-145) 03/15/20 04:40 Potassium 3.5 mmol/L (3.5-5.0) 03/15/20 04:40 Chloride 103 mmol/L (101-111) 03/15/20 04:40 Carbon Dioxide 22 mmol/L (21-32) 03/15/20 04:40 Anion Gap 10.0 (6-13) 03/15/20 04:40 BUN 25 mg/dL (6-20) H 03/15/20 04:40 Creatinine 0.6 mg/dL (0.4-1.0) 03/15/20 04:40 Estimated GFR (MDRD) 99 (>89) 03/15/20 04:40 Glucose 114 mg/dL (70-100) H 03/15/20 04:40 Lactic Acid 1.3 mmol/L (0.5-2.2) 03/14/20 14:35 Calcium 8.4 mg/dL (8.5-10.3) L 03/15/20 04:40 Phosphorus 2.7 mg/dL (2.5-4.6) 03/14/20 04:25 Magnesium 2.0 mg/dL (1.7-2.8) 03/14/20 04:25 Total Bilirubin 0.9 mg/dL (0.2-1.0) 03/13/20 18:00 AST 43 IU/L (10-42) H 03/13/20 18:00 ALT 41 IU/L (10-60) 03/13/20 18:00 Alkaline Phosphatase 128 IU/L (42-121) H 03/13/20 18:00 Troponin I High Sens 33.9 ng/L (2.3-14.8) H* 10/28/20 20:55 C-Reactive Protein 10.9 mg/dL (0-1.0) H 03/15/20 04:40 B-Natriuretic Peptide 110 pg/mL (5-100) H 03/13/20 18:00 Total Protein 7.5 g/dL (6.7-8.2) 03/13/20 18:00 Albumin 3.2 g/dL (3.2-5.5) 03/13/20 18:00 Globulin 4.3 g/dL (2.1-4.2) H 03/13/20 18:00 Albumin/Globulin Ratio 0.7 (1.0-2.2) L 03/13/20 18:00 Lipase 21 U/L (22-51) L 03/13/20 18:00 TSH 2.05 uIU/mL (0.34-5.60) 03/13/20 18:00 Urine Color YELLOW 03/13/20 19:35 Urine Clarity CLEAR (CLEAR) 03/13/20 19:35 Urine pH 6.0 PH (5.0-7.5) 03/13/20 19:35 Ur Specific [place] 1.025 (1.002-1.030) 03/13/20 19:35 Urine Protein 30 mg/dL (NEGATIVE) H 03/13/20 19:35 Urine Glucose (UA) NEGATIVE mg/dL (NEGATIVE) 03/13/20 19:35 Urine Ketones TRACE mg/dL (NEGATIVE) 03/13/20 19:35 Urine Occult Blood NEGATIVE (NEGATIVE) 03/13/20 19:35 Urine Nitrite NEGATIVE (NEGATIVE) 03/13/20 19:35 Urine Bilirubin NEGATIVE (NEGATIVE) 03/13/20 19:35 Urine Urobilinogen 1 (NORMAL) E.U./dL (NORMAL) 03/13/20 19:35 Ur Leukocyte Esterase NEGATIVE (NEGATIVE) 03/13/20 19:35 Urine RBC None Seen /HPF (0-5) 03/13/20 19:35 Urine WBC 0-3 /HPF (0-5) 03/13/20 19:35 Ur Squamous Epith Cells RARE Squamous (<= Few) 03/13/20 19:35 Urine Bacteria None Seen /HPF (None Seen) 03/13/20 19:35 Urine Casts 3-5 Hyaline Casts /LPF 03/13/20 19:35 Ur Microscopic Review INDICATED 03/13/20 19:35 Urine Culture Comments NOT INDICATED 03/13/20 19:35 ABX Reporting Has patient been on IV antibiotics over the past 48 hours?: Yes Current Medications - Current Medications Current Medications: Active Medications Acetaminophen (Tylenol) 650 mg PO Q4HR PRN PRN Reason: Pain 1 to 4 Last Admin: 03/15/20 02:00 Dose: 650 mg Documented by: Diphenhydramine HCl (Benadryl) 12.5 mg PO QPM PRN PRN Reason: Cramp Enoxaparin Sodium (Lovenox) 40 mg SUBQ DAILY [facility] Last Admin: 03/15/20 09:35 Dose: 40 mg Documented by: Ceftriaxone Sodium 2 gm/ (Sodium Chloride) 100 mls @ 200 mls/hr IV DAILY [facility] Last Infusion: 03/15/20 10:32 Dose: Infused Documented by: Magnesium Oxide (Mag Ox) 400 mg PO DAILYWM [facility] Last Admin: 03/15/20 09:36 Dose: 400 mg Documented by: Mineral Oil (Cavilon) 1 applic TOP PRN PRN PRN Reason: Skin Care Last Admin: 03/14/20 20:40 Dose: 1 applic Documented by: Multi-Ingredient Ointment (Zinc Oxide) 1 applic TOP PRN PRN PRN Reason: Skin Care Last Admin: 03/15/20 14:21 Dose: 1 applic Documented by: Multivitamins/Minerals (Theragran M) 1 tab PO DAILYWM [facility] Last Admin: 03/15/20 09:36 Dose: 1 tab Documented by: Nystatin (Nystop) 1 applic TOP BID [facility] Last Admin: 03/15/20 09:35 Dose: Not Given Documented by: Ondansetron HCl (Zofran Odt) 4 mg TL Q6HR PRN PRN Reason: Nausea / Vomiting Ondansetron HCl (Zofran Inj) 4 mg IVP Q6HR PRN PRN Reason: Nausea / Vomiting Oxycodone HCl (Roxicodone) 5 mg PO Q4HR PRN PRN Reason: Pain 5 to 7 Pyridoxine HCl (Vitamin B-6) 100 mg PO BID [facility] Last Admin: 03/15/20 09:33 Dose: 100 mg Documented by: Saccharomyces Boulardii (Florastor) 250 mg PO BIDWM [facility] Last Admin: 03/15/20 09:33 Dose: 250 mg Documented by: Sodium Chloride (Normal Saline Flush 0.9%) 10 ml IVP PRN PRN PRN Reason: NEEDED PER PROVIDER ORDERS Last Admin: 03/14/20 09:26 Dose: 10 ml Documented by: Sodium Chloride (Normal Saline Flush 0.9%) 10 ml IVP 0100,0900,1700 [facility] Last Admin: 03/15/20 09:35 Dose: 10 ml Documented by: No Known Home Medications 03/13/20
--- NOTE | 2020-03-15 18:01 | MRI Report ---
PROCEDURE: Foot RT W/O INDICATIONS: heel deep infection, osteomyelitis? TECHNIQUE: Noncontrast coronal and sagittal T1 spin echo and STIR; axial T1 spin echo and T2 fast spin echo with fat saturation through the right midfoot and hindfoot. COMPARISON: None. FINDINGS: Image quality: Diagnostic. Significant patient motion is noted. Bones: There is no marrow edema. No fracture or dislocation. No definite bony erosion. No suspicious intraosseous lesion. Soft tissues: Diffuse soft tissue swelling and edema throughout right ankle and foot is seen with ulc eration involving plantar aspect of right heel at the level near plantar aponeurosis insertion on the plantar calcaneus. No discrete drainable abscess collection is seen. Thickened underlying plantar ap oneurosis is seen concerning for low-grade plantar fasciitis. Achilles tendon is intact. Extensor, fl exor, and peroneus tendons are intact. IMPRESSION: 1. Significant patient motion noted. 2. Ulceration involving plantar aspect of right heel. No discrete drainable abscess collection. Exten sive cellulitis throughout right ankle and foot. 3. No area of marrow signal abnormality to suggest osteomyelitis. 4. Suggestion of low-grade plantar fasciitis at its plantar calcaneal insertion. Ankle tendons are in tact. Reviewed by: Josiah Nelson MD on 03/15/2020 6:00 PM PDT Approved by: Josiah Nelson MD on 03/15/2020 6:00 PM PDT Station ID: [id number]
[2020-03-16] MEDS: PYRIDOXINE 100 MG TABLET PO SCH ×3 (00:31→20:40)
[2020-03-16] MEDS: SODIUM CHLORIDE FLUSH 0.9% 10 ML SYRINGE IVP SCH ×4 (00:31→23:44)
[2020-03-16] MEDS: ACETAMINOPHEN 325 MG TABLET PO PRN ×3 (00:31→23:58)
[2020-03-16] MEDS: NYSTATIN POWDER 15 GM TOP SCH ×3 (00:33→20:42)
[2020-03-16 05:35] LABS: BASOPHILS # (AUTO) 0.1 10^3/uL (0.0-0.1); BASOPHILS % (AUTO) 0.4 %; EOSINOPHILS # (AUTO) 0.2 10^3/uL (0.0-0.7); EOSINOPHILS % (AUTO) 1.5 %; HGB - HEMOGLOBIN 10.2 g/dL (12.0-16.0); LYMPHOCYTES % (AUTO) 14.4 %; MEAN CORPUSCULAR HEMOGLOBIN 30.1 pg (27.0-31.0); MEAN CORPUSCULAR HGB CONC 31.7 g/dL (32.0-36.0); MEAN PLATELET VOLUME 11.5 fL (7.9-10.8); MONOCYTES # (AUTO) 1.3 10^3/uL (0.0-1.0); MONOCYTES % (AUTO) 9.7 %; NEUTROPHILS % (AUTO) 73.1 %; PLT - PLATELET COUNT 315 10^3/uL (130-450); RED BLOOD COUNT 3.39 10^6/uL (4.20-5.40); RED CELL DISTRIBUTION WIDTH 14.2 % (12.0-15.0); WHITE BLOOD COUNT 13.7 x10^3/uL (4.8-10.8)
[2020-03-16 05:54] LABS: CALCIUM 8.4 mg/dL (8.5-10.3); CREATININE 0.6 mg/dL (0.4-1.0); CRP - C-REACTIVE PROTEIN 7.5 mg/dL (0-1.0)
[2020-03-16] MEDS: MAGNESIUM OXIDE 400 MG TABLET PO SCH (09:03)
[2020-03-16] MEDS: MULTIVITAMIN W/MINERALS TABLET PO SCH (09:03)
[2020-03-16] MEDS: SACCHAROMYCES BOULARDII 250 MG CAPSULE PO SCH ×2 (09:04→18:12)
[2020-03-16] MEDS: ENOXAPARIN 40 MG/0.4 ML SYRINGE SUBQ SCH (09:05)
--- NOTE | 2020-03-16 13:00 | PROVIDER PROGRESS NOTE ---
Subjective - Prog Note Date Prog Note Date: 03/16/20 Prog Note Time: 12:57 Objective - Vital Signs/Intake & Output Vital Signs: Vital Signs x48h Temp Pulse Resp BP BP Pulse Ox 03/16/20 09:00 37.0 C 63 20 121/43 L 112/48 L 95 03/16/20 05:09 36.9 C 46 L 20 104/43 L 95 Intake & Output: Intake & Output 03/13/20 03/14/20 03/15/20 03/16/20 23:59 23:59 23:59 23:59 Intake Total 300 3400.000 450 640 Output Total 750 1550 450 Balance 300 2650.000 -1100 190 - Lab Results Fish Bones: 03/16/20 05:06 03/16/20 05:06 Other Labs: Lab Results x24hrs 03/16/20 03/16/20 Range/Units 05:06 05:06 WBC 13.7 H (4.8-10.8) x10^3/uL RBC 3.39 L (4.20-5.40) 10^6/uL Hgb 10.2 L (12.0-16.0) g/dL Hct 32.2 L (37.0-47.0) % MCV 95.0 (81.0-99.0) fL MCH 30.1 (27.0-31.0) pg MCHC 31.7 L (32.0-36.0) g/dL RDW 14.2 (12.0-15.0) % Plt Count 315 (130-450) 10^3/uL MPV 11.5 H (7.9-10.8) fL Neut # (Auto) 10.0 H (1.5-6.6) 10^3/uL Lymph # (Auto) 2.0 (1.5-3.5) 10^3/uL [place] # (Auto) 1.3 H (0.0-1.0) 10^3/uL Eos # (Auto) 0.2 (0.0-0.7) 10^3/uL Baso # (Auto) 0.1 (0.0-0.1) 10^3/uL Absolute Nucleated RBC 0.00 x10^3/uL Nucleated RBC % 0.0 /100WBC Sodium 136 (135-145) mmol/L Potassium 3.5 (3.5-5.0) mmol/L Chloride 102 (101-111) mmol/L Carbon Dioxide 22 (21-32) mmol/L Anion Gap 12.0 (6-13) BUN 17 (6-20) mg/dL Creatinine 0.6 (0.4-1.0) mg/dL Estimated GFR (MDRD) 99 (>89) Glucose 99 (70-100) mg/dL Calcium 8.4 L (8.5-10.3) mg/dL C-Reactive Protein 7.5 H (0-1.0) mg/dL Assessment/Plan - Problem List (1) Cellulitis Impression: Stable PLAN: Continue antibiotics. No surgery indicated Qualifiers: Site of cellulitis: extremity Site of cellulitis of extremity: lower extremity Laterality: unspecified laterality Qualified Code(s): L03.119 - Cellulitis of unspecified part of limb (2) Decubitus ulcer Impression: MRI scan and XR do not suggest calcaneal involvement. PLAN: Conitinue wound care for pressure decubiti ulcers. No orthopedic surgery indicated. Qualifiers: Pressure injury location: heel Laterality: unspecified laterality
[2020-03-16] MEDS: cefTRIAXone 2 GM in SODIUM CHLORIDE 0.9% MINIBAG 100 ML IV SCH (13:29)
--- NOTE | 2020-03-16 14:36 | MRI Report ---
PROCEDURE: Foot LT W/O INDICATIONS: heel deep infection, osteomyelitis? TECHNIQUE: Noncontrast coronal and sagittal T1 spin echo and T2 inversion recovery; axial T1 spin echo and T2 in version recovery through the hindfoot. COMPARISON: None. FINDINGS: Image quality: Markedly compromised by extensive patient motion despite repeat sequences being obtain ed. Some diagnostic information is obtained. Bones: No acute trabecular bone injury is seen. There is no abnormal marrow signal in the calcaneus to suggest osteomyelitis. Soft tissues: A soft tissue ulcer is seen at the heel with mild subcutaneous edema. No discrete flui d collection is seen to suggest abscess formation. Diffuse subcutaneous edema is seen surrounding the ankle. There is mild thickening of the Achilles tendon, compatible with tendinosis. Edema and mild f atty infiltration of the intrinsic foot muscles may be related to denervation changes. IMPRESSION: 1. Motion degraded exam demonstrates a soft tissue ulcer at the heel with surrounding subcutaneous s oft tissue edema that extends into the ankle and the dorsum of the foot. No discrete soft tissue absc ess is seen. There are no signs of osteomyelitis. 2. Mild Achilles tendinosis. 3. Edema and fatty infiltration within the intrinsic foot musculature may be related to chronic dene rvation changes. Reviewed by: Ernst Serra MD on 03/16/2020 2:35 PM PDT Approved by: Ernst Serra MD on 03/16/2020 2:35 PM PDT Station ID: [id number]
--- NOTE | 2020-03-16 15:05 | PROVIDER PROGRESS NOTE ---
Assessment/Plan - Problem List (1) Cellulitis of both lower extremities Assessment/Plan: 1030,improved. WBC and CRP both are trending down, Swallow and erythema significantly reduced. Continue antibiotics 1029, slightly reduced swelling, WBC trended down 15 from 17 yesterday,CRP down to 11 from yesterday 13. We will continue antibiotics, continue rice patient lower extremity To help venous blood return. Blood culture is negative WBC is down to 17 from 26 at the admission. Patient has swallow lower extremity With erythema, Also considered patient have severe venous stasis dermatitis, Patient has elevated WBC but without fever. Continue antibiotics, Blood culture is pending. (2) Heel ulceration Conclusion/Plan: 1030, M RI of both feet show no oestomyelitis. Surgeon recommended Wound care, no orthopedic surgery indicated. Continue wound care per wound care instruction. Continue antibiotics. according to wound will culture, She has beta hemolytic gr oup G, Proteus, Providencia Rettgerl infection in wound culture. According to sensitivity study, Per pharmacy recommended, antibiotics is switched to Levaquin daily 1029, MRI is still pending, Patient only can tolerate one lower extremity per time for MRI. We will continue follow-up with orthopedic surgeon. Wound culture show beta-hemolytic group G, And negative rods as far. Culture and sensitivity are still pending. Rocephin cover for both Bacteria right now. We will continue antibiotics. Patient has bilaterally Heel ulcers with black tissue. Patient report that she is ambulatory. Wound consult already saw pt, put dressing change order for nurse. MRI to r/o bony infection, wound culture is done and pending, order orthopedics consult continue current antibiotics, then depending wound culture to adjust antibiotics. (3)various stage pressure ulcers in multiple locations 1018, improved, continue antibiotics, continue nurse's skin care for patient, Continue dressing changes 1029, continue nurse care to prevention further pressure ulcer by turn on pt, continue dressing change according to wound care's recommendation, Patient was found to have multiple locations in her back and buttock location to have pressure, at stage 2-3. Wound care already saw the patient, have dressing change order for nurse. Skin care and turn pt dressing change wound culture is pending, continue antibiotics social media community manager is consulted, pt might need nurse home care or SNF consult with PT/OT (4) Hypokalemia Conclusion/Plan: resolved (5) Abnormal chest xray Conclusion/Plan: 03-16, stable. echocardiogram reveals Normal EF, no aortic stenosis, but elevated RVSP. Patient was reported to have hypotension but the patient is asymptomatic. recheck patient blood pressure, systolic blood pressure has 97 Order 500 bolus normal saline intravenous, patient had a slightly elevated troponin, repeated troponin. Continue telemetry Tachycardia was resolved but the patient also has multiple Ventricular bigeminy with bradycardia. Patient denies any chest pain, dizziness, lightheaded. Patient is fine when she worked with physical therapist. (6) At risk for accident in home Conclusion/Plan: Continue social work consult. Patient let we discussed patient care with her daughter and her sister now. consult with radio news anchor (7) Leg cramps Conclusion/Plan: 1030, improved,Patient has no complaints 1029, US show no DVT, LILO was unremarkable. Patient reported she feel better. Patient feel better. Agree it is mostly due to fluid shifts in this woman who is legs are large and tree trunk. US to r/o DVT and LILO continue Magnesium oxide 400 mg twice daily Vitamin B complex 3 times daily 12.5 mg of Benadryl at at bedtime (8)self neglect Patient is alert and orientated plus 4, Patient did not seek medical attention, she Had a multiple pressure ulcers at different stages at her back, cellulitis at her both leg with venous stasis, heel ulcer infection. - Current Meds Current Meds: Current Medications Generic Name Dose Route Start Last Admin Trade Name Freq PRN Reason Stop Dose Admin Acetaminophen 650 mg 03/13/20 20:02 03/16/20 11:18 Tylenol PO 650 mg Q4HR PRN Administration Pain 1 to 4 Enoxaparin Sodium 40 mg 03/14/20 09:00 03/16/20 09:05 Lovenox SUBQ 40 mg DAILY [facility] Administration Magnesium Oxide 400 mg 03/13/20 22:15 03/16/20 09:03 Mag Ox PO 400 mg DAILYWM [facility] Administration Mineral Oil 1 applic 03/14/20 09:42 03/14/20 20:40 Cavilon TOP 1 applic PRN PRN Administration Skin Care Multi-Ingredient Ointment 1 applic 03/14/20 09:42 03/15/20 14:21 Zinc Oxide TOP 1 applic PRN PRN Administration Skin Care Multivitamins/Minerals 1 tab 03/14/20 17:00 03/16/20 09:03 Theragran M PO 1 tab DAILYWM [facility] Administration Nystatin 1 applic 03/13/20 23:00 03/16/20 13:31 Nystop TOP 1 applic BID [facility] Administration Pyridoxine HCl 100 mg 03/13/20 23:00 03/16/20 09:04 Vitamin B-6 PO 100 mg BID [facility] Administration Saccharomyces Boulardii 250 mg 03/14/20 17:00 03/16/20 09:04 Florastor PO 250 mg BIDWM [facility] Administration Sodium Chloride 10 ml 03/13/20 20:02 03/14/20 09:26 Normal Saline Flush 0.9% IVP 10 ml PRN PRN Administration NEEDED PER PROVIDER ORDERS Sodium Chloride 10 ml 03/14/20 01:00 03/16/20 09:15 Normal Saline Flush 0.9% IVP 10 ml 0100,0900,1700 [facility] Administration - Lab Result Fish Bone Diagrams: 03/16/20 05:06 03/16/20 05:06 - Additional Planning My Orders: My Active Orders 03/16/20 15:00 Levofloxacin/D5W 750 mg/150 mL q24h levoFLOXacin 750 MG/150 ML [Levaquin 750 mg/150 ml] 750 mg in 150 ml IV Q24H 03/17/20 05:00 BMP - BASIC METABOLIC PANEL [CHEM] DAILYLAB CBC - COMP BLD CT W/AUTO DIFF [HEME] DAILYLAB CRP - C-REACTIVE PROTEIN [CHEM] DAILYLAB 03/18/20 05:00 BMP - BASIC METABOLIC PANEL [CHEM] DAILYLAB CBC - COMP BLD CT W/AUTO DIFF [HEME] DAILYLAB CRP - C-REACTIVE PROTEIN [CHEM] DAILYLAB 03/19/20 05:00 BMP - BASIC METABOLIC PANEL [CHEM] DAILYLAB CBC - COMP BLD CT W/AUTO DIFF [HEME] DAILYLAB CRP - C-REACTIVE PROTEIN [CHEM] DAILYLAB Subjective - Subjective Patient Reports: Feeling Better Objective Vital Signs: Vital Signs - 24 hr 03/15/20 03/15/20 03/16/20 17:00 20:13 00:36 Temperature 36.8 C 37.5 C 36.9 C Heart Rate [ 78 106 H 110 H Brachial] Respiratory 18 22 18 Rate Blood Pressure [Left Brachial artery] Blood Pressure 85/46 L 99/30 L 113/60 [Right Brachial artery] O2 Saturation 98 94 98 10/30/20 10/30/20 10/30/20 05:09 09:00 13:00 Temperature 36.9 C 37.0 C 36.7 C Heart Rate [ 46 L 63 86 Brachial] Respiratory 20 20 21 Rate Blood Pressure 121/43 L [Left Brachial artery] Blood Pressure 104/43 L 112/48 L 113/69 [Right Brachial artery] O2 Saturation 95 95 96 Oxygen O2 Source Room air I&O (Last 24 Hrs): Intake and Output Totals x24h 03/14/20 03/15/20 03/16/20 23:59 23:59 23:59 Intake Total 3400.000 450 840 Output Total 750 1550 750 Balance 2650.000 -1100 90 General: Alert, Oriented x3, No acute distress HEENT: Atraumatic Neck: Supple Lymphatic: no adenopathy Neuro: Alert, Non Focal, Oriented Times 3 Cardiovascular: Regular rate, Normal S1, Normal S2 Respiratory: Chest non-tender, No respiratory distress, Breath sounds nml Abdomen: Normal bowel sounds, Soft, No tenderness Extremities: Normal pulses - Results Results: Laboratory Results WBC 13.7 x10^3/uL (4.8-10.8) H 03/16/20 05:06 RBC 3.39 10^6/uL (4.20-5.40) L 03/16/20 05:06 Hgb 10.2 g/dL (12.0-16.0) L 03/16/20 05:06 Hct 32.2 % (37.0-47.0) L 03/16/20 05:06 MCV 95.0 fL (81.0-99.0) 03/16/20 05:06 MCH 30.1 pg (27.0-31.0) 03/16/20 05:06 MCHC 31.7 g/dL (32.0-36.0) L 03/16/20 05:06 RDW 14.2 % (12.0-15.0) 03/16/20 05:06 Plt Count 315 10^3/uL (130-450) 03/16/20 05:06 MPV 11.5 fL (7.9-10.8) H 03/16/20 05:06 Neut # (Auto) 10.0 10^3/uL (1.5-6.6) H 03/16/20 05:06 Lymph # (Auto) 2.0 10^3/uL (1.5-3.5) 03/16/20 05:06 Clarke # (Auto) 1.3 10^3/uL (0.0-1.0) H 03/16/20 05:06 Eos # (Auto) 0.2 10^3/uL (0.0-0.7) 03/16/20 05:06 Baso # (Auto) 0.1 10^3/uL (0.0-0.1) 03/16/20 05:06 Absolute Nucleated RBC 0.00 x10^3/uL 03/16/20 05:06 Total Counted 100 03/14/20 04:25 Band Neuts % (Manual) 2 % (0-10) 03/14/20 04:25 Abnorm Lymph % (Manual) 0 % 03/14/20 04:25 Nucleated RBC % 0.0 /100WBC 03/16/20 05:06 Neutrophils # (Manual) 15.1 10^3/uL (1.5-6.6) H 03/14/20 04:25 Lymphocytes # (Manual) 1.4 10^3/uL (1.5-3.5) L 03/14/20 04:25 Monocytes # (Manual) 1.1 10^3/uL (0.0-1.0) H 03/14/20 04:25 Eosinophils # (Manual) 0.0 10^3/uL (0-0.7) 03/14/20 04:25 Basophils # (Manual) 0.0 10^3/uL (0-0.1) 03/14/20 04:25 Differential Comment MANUAL DIFFERENTIAL 03/14/20 04:25 Platelet Estimate NORMAL (130-450,000) (NORMAL) 03/14/20 04:25 Platelet Morphology NORMAL APPEARANCE (NORMAL) 03/13/20 18:00 RBC Morph Micro Appear NORMAL APPEARANCE (NORMAL) 03/14/20 04:25 Sodium 136 mmol/L (135-145) 03/16/20 05:06 Potassium 3.5 mmol/L (3.5-5.0) 03/16/20 05:06 Chloride 102 mmol/L (101-111) 03/16/20 05:06 Carbon Dioxide 22 mmol/L (21-32) 03/16/20 05:06 Anion Gap 12.0 (6-13) 03/16/20 05:06 BUN 17 mg/dL (6-20) 03/16/20 05:06 Creatinine 0.6 mg/dL (0.4-1.0) 03/16/20 05:06 Estimated GFR (MDRD) 99 (>89) 03/16/20 05:06 Glucose 99 mg/dL (70-100) 03/16/20 05:06 Lactic Acid 1.3 mmol/L (0.5-2.2) 03/14/20 14:35 Calcium 8.4 mg/dL (8.5-10.3) L 03/16/20 05:06 Phosphorus 2.7 mg/dL (2.5-4.6) 03/14/20 04:25 Magnesium 2.0 mg/dL (1.7-2.8) 03/14/20 04:25 Total Bilirubin 0.9 mg/dL (0.2-1.0) 03/13/20 18:00 AST 43 IU/L (10-42) H 03/13/20 18:00 ALT 41 IU/L (10-60) 03/13/20 18:00 Alkaline Phosphatase 128 IU/L (42-121) H 03/13/20 18:00 Troponin I High Sens 33.9 ng/L (2.3-14.8) H* 03/14/20 20:55 C-Reactive Protein 7.5 mg/dL (0-1.0) H 03/16/20 05:06 B-Natriuretic Peptide 110 pg/mL (5-100) H 03/13/20 18:00 Total Protein 7.5 g/dL (6.7-8.2) 03/13/20 18:00 Albumin 3.2 g/dL (3.2-5.5) 03/13/20 18:00 Globulin 4.3 g/dL (2.1-4.2) H 03/13/20 18:00 Albumin/Globulin Ratio 0.7 (1.0-2.2) L 03/13/20 18:00 Lipase 21 U/L (22-51) L 03/13/20 18:00 TSH 2.05 uIU/mL (0.34-5.60) 03/13/20 18:00 Urine Color YELLOW 03/13/20 19:35 Urine Clarity CLEAR (CLEAR) 03/13/20 19:35 Urine pH 6.0 PH (5.0-7.5) 03/13/20 19:35 Ur Specific [place] 1.025 (1.002-1.030) 03/13/20 19:35 Urine Protein 30 mg/dL (NEGATIVE) H 03/13/20 19:35 Urine Glucose (UA) NEGATIVE mg/dL (NEGATIVE) 03/13/20 19:35 Urine Ketones TRACE mg/dL (NEGATIVE) 03/13/20 19:35 Urine Occult Blood NEGATIVE (NEGATIVE) 03/13/20 19:35 Urine Nitrite NEGATIVE (NEGATIVE) 03/13/20 19:35 Urine Bilirubin NEGATIVE (NEGATIVE) 03/13/20 19:35 Urine Urobilinogen 1 (NORMAL) E.U./dL (NORMAL) 03/13/20 19:35 Ur Leukocyte Esterase NEGATIVE (NEGATIVE) 03/13/20 19:35 Urine RBC None Seen /HPF (0-5) 03/13/20 19:35 Urine WBC 0-3 /HPF (0-5) 03/13/20 19:35 Ur Squamous Epith Cells RARE Squamous (<= Few) 03/13/20 19:35 Urine Bacteria None Seen /HPF (None Seen) 03/13/20 19:35 Urine Casts 3-5 Hyaline Casts /LPF 03/13/20 19:35 Ur Microscopic Review INDICATED 03/13/20 19:35 Urine Culture Comments NOT INDICATED 03/13/20 19:35 ABX Reporting Has patient been on IV antibiotics over the past 48 hours?: Yes Current Medications - Current Medications Current Medications: Active Medications Acetaminophen (Tylenol) 650 mg PO Q4HR PRN PRN Reason: Pain 1 to 4 Last Admin: 03/16/20 11:18 Dose: 650 mg Documented by: Diphenhydramine HCl (Benadryl) 12.5 mg PO QPM PRN PRN Reason: Cramp Enoxaparin Sodium (Lovenox) 40 mg SUBQ DAILY [facility] Last Admin: 03/16/20 09:05 Dose: 40 mg Documented by: Levofloxacin (Levaquin 750 Mg/150 Ml) 750 mg in 150 mls @ 100 mls/hr IV DAILY [facility] Magnesium Oxide (Mag Ox) 400 mg PO DAILYWM [facility] Last Admin: 03/16/20 09:03 Dose: 400 mg Documented by: Mineral Oil (Cavilon) 1 applic TOP PRN PRN PRN Reason: Skin Care Last Admin: 03/14/20 20:40 Dose: 1 applic Documented by: Multi-Ingredient Ointment (Zinc Oxide) 1 applic TOP PRN PRN PRN Reason: Skin Care Last Admin: 03/15/20 14:21 Dose: 1 applic Documented by: Multivitamins/Minerals (Theragran M) 1 tab PO DAILYWM [facility] Last Admin: 03/16/20 09:03 Dose: 1 tab Documented by: Nystatin (Nystop) 1 applic TOP BID [facility] Last Admin: 03/16/20 13:31 Dose: 1 applic Documented by: Ondansetron HCl (Zofran Odt) 4 mg TL Q6HR PRN PRN Reason: Nausea / Vomiting Ondansetron HCl (Zofran Inj) 4 mg IVP Q6HR PRN PRN Reason: Nausea / Vomiting Oxycodone HCl (Roxicodone) 5 mg PO Q4HR PRN PRN Reason: Pain 5 to 7 Pyridoxine HCl (Vitamin B-6) 100 mg PO BID [facility] Last Admin: 03/16/20 09:04 Dose: 100 mg Documented by: Saccharomyces Boulardii (Florastor) 250 mg PO BIDWM [facility] Last Admin: 03/16/20 09:04 Dose: 250 mg Documented by: Sodium Chloride (Normal Saline Flush 0.9%) 10 ml IVP PRN PRN PRN Reason: NEEDED PER PROVIDER ORDERS Last Admin: 03/14/20 09:26 Dose: 10 ml Documented by: Sodium Chloride (Normal Saline Flush 0.9%) 10 ml IVP 0100,0900,1700 [facility] Last Admin: 03/16/20 09:15 Dose: 10 ml Documented by: No Known Home Medications 03/13/20
[2020-03-16] MEDS: levoFLOXacin 750 MG/150 ML 750 MG/150 ML BAG IV SCH (16:35)
[2020-03-17 04:53] LABS: BASOPHILS # (AUTO) 0.1 10^3/uL (0.0-0.1); BASOPHILS % (AUTO) 0.4 %; EOSINOPHILS # (AUTO) 0.2 10^3/uL (0.0-0.7); EOSINOPHILS % (AUTO) 1.8 %; HGB - HEMOGLOBIN 10.4 g/dL (12.0-16.0); LYMPHOCYTES # (AUTO) 1.7 10^3/uL (1.5-3.5); LYMPHOCYTES % (AUTO) 14.9 %; MEAN CORPUSCULAR HEMOGLOBIN 30.1 pg (27.0-31.0); MEAN CORPUSCULAR HGB CONC 31.4 g/dL (32.0-36.0); MEAN CORPUSCULAR VOLUME 95.9 fL (81.0-99.0); MONOCYTES % (AUTO) 8.5 %; NEUTROPHILS # (AUTO) 8.3 10^3/uL (1.5-6.6); NEUTROPHILS % (AUTO) 73.1 %; PLT - PLATELET COUNT 312 10^3/uL (130-450); RED BLOOD COUNT 3.45 10^6/uL (4.20-5.40); RED CELL DISTRIBUTION WIDTH 14.2 % (12.0-15.0); WHITE BLOOD COUNT 11.4 x10^3/uL (4.8-10.8)
[2020-03-17 05:10] LABS: CALCIUM 8.2 mg/dL (8.5-10.3); CREATININE 0.6 mg/dL (0.4-1.0); CRP - C-REACTIVE PROTEIN 5.7 mg/dL (0-1.0)
[2020-03-17] MEDS: SACCHAROMYCES BOULARDII 250 MG CAPSULE PO SCH ×2 (09:23→17:24)
[2020-03-17] MEDS: PYRIDOXINE 100 MG TABLET PO SCH ×2 (09:23→20:16)
[2020-03-17] MEDS: SODIUM CHLORIDE FLUSH 0.9% 10 ML SYRINGE IVP SCH ×2 (09:24→17:24)
[2020-03-17] MEDS: levoFLOXacin 750 MG/150 ML 750 MG/150 ML BAG IV SCH (09:24)
[2020-03-17] MEDS: ENOXAPARIN 40 MG/0.4 ML SYRINGE SUBQ SCH (09:32)
[2020-03-17] MEDS: NYSTATIN POWDER 15 GM TOP SCH ×2 (09:34→20:24)
[2020-03-17] MEDS ORDERED: MAGNESIUM OXIDE 400 MG TABLET PO SCH (11:10)
--- NOTE | 2020-03-17 12:15 | PROVIDER PROGRESS NOTE ---
Assessment/Plan - Problem List (1) Cellulitis of both lower extremities Assessment/Plan: She has chronic edema and venous stasis changes. Contributing factors were self-neglect and she had no running water in her apartment, lived alone and came in very dirty with poor hygiene. She has an improved WBC and CRP both are trending down, swelling and erythema significantly reduced. Blood cultures are all negative to date. The leg wound culture is growing beta-hemolytic Strep group G, Providencia Rettgeri and Proteus. n Per sensitivities they are all sensitive to the liliana quinolones. She was changed to IV Levaquin yesterday per pharmacy recommendations. Today will change to oral Levaquin once a day, per pharmacy recommendation today. She will probably need a prolonged course and continue probiotic Florastor. She will need nursing care of her multiple wounds, and will need a SNF after Dch. (2) Decubitus ulcer Qualifiers: Pressure injury location: heel Laterality: unspecified laterality Assessment/Plan: Blood cultures are all negative to date. According to L heel wound culture results and sensitivities: She is growing 5 bacteria including beta hemolytic Strep group G, Proteus, Klebsiella pneumonia, Enterococcus faecalis, staph aureus that is MSSA. MRI of both legs show no oestomyelitis. Surgeon recommended Wound care, no orthopedic surgery indicated. Continue wound care per wound care instruction: change dressing q3days. According to sensitivity studies, and per pharmacy recommendations, antibiotic was switched to Levaquin daily yesterday. Today will make that orally daily, per Pharmacy recommendation. Continue antibiotics, probably a long course will be needed. Continue probiotic Florastor along with oral antibx. (3) Leg cramps Assessment/Plan: US show no DVT, LILO was unremarkable. Patient reported she feel better and has on and off sx.. It is mostly likley due to fluid shifts in this woman who is legs are large and tree trunk. Will recheck Mg level. continue Magnesium oxide 400 mg twice daily Vitamin B complex 3 times daily 12.5 mg of Benadryl at at bedtime (4) Morbid obesity with BMI of 45.0-49.9, adult Assessment/Plan: As per Hx (5) Cor pulmonale Assessment/Plan: She had bigeminy at the time of admission (which was probably from hypokalemia of 2.6). An echocardiogram was ordered for that reason and it found normal LV size and contractility but severely dilated right ventricle consistent with cor pulmonale, also moderate to severe pulmonary hypertension with PA pressure 60 mmHg. This explains her chronic leg edema and therefore her venous stasis. I suspect she might have obesity hypoventilation syndrome to cause the cor pulmonale. We will order overnight oximetry. (6) Venous stasis dermatitis of both lower extremities Assessment/Plan: This is likely from chronic leg edema from cor pulmonale. Contributing factors were self-neglect and she had no water in her apartment and came in very dirty with poor hygiene. (7) Generalized weakness Assessment/Plan: She has only stood and also needed a lift to be put into chair. She will need PT for rehab, therefore a SNF (8) Self neglect Assessment/Plan: Patient is alert and orientated plus 4, Patient did not seek medical attention, she Had a multiple pressure ulcers at different stages at her back, cellulitis at her both leg with venous stasis, heel ulcer infection. (9) Poor hygiene Assessment/Plan: In the ER, she reported she has no running water at her residence, lives alone, uses a scooter if she goes shopping, drives, walks only short distances. An APS report was filed at admission. She has not seen a doctor in years and was on no prescription medications. She did tell me she can walk a few steps to make her own meals. She was also interested in feeding the squirrels and now realizes she has to take care of herself before she can worry about the squirrels. Will order dental care and personal hygiene care, a shower, and she needs Podiatry for managing black and thick nails with fungus. (10) Hypokalemia Assessment/Plan: Resolved with replacement. BMP daily (11) Prerenal azotemia Assessment/Plan: Resolved since admission on current management. - Current Meds Current Meds: Current Medications Generic Name Dose Route Start Last Admin Trade Name Freq PRN Reason Stop Dose Admin Acetaminophen 650 mg 03/13/20 20:02 03/16/20 23:58 Tylenol PO 650 mg Q4HR PRN Administration Pain 1 to 4 Enoxaparin Sodium 40 mg 03/14/20 09:00 03/17/20 09:32 Lovenox SUBQ 40 mg DAILY CORDELL Administration Mineral Oil 1 applic 03/14/20 09:42 03/14/20 20:40 Cavilon TOP 1 applic PRN PRN Administration Skin Care Multi-Ingredient Ointment 1 applic 03/14/20 09:42 03/15/20 14:21 Zinc Oxide TOP 1 applic PRN PRN Administration Skin Care Nystatin 1 applic 03/13/20 23:00 03/17/20 09:34 Nystop TOP 1 applic BID CORDELL Administration Pyridoxine HCl 100 mg 03/13/20 23:00 03/17/20 09:23 Vitamin B-6 PO 100 mg BID CORDELL Administration Saccharomyces Boulardii 250 mg 03/14/20 17:00 03/17/20 09:23 Florastor PO 250 mg BIDWM CORDELL Administration Sodium Chloride 10 ml 03/13/20 20:02 03/14/20 09:26 Normal Saline Flush 0.9% IVP 10 ml PRN PRN Administration NEEDED PER PROVIDER ORDERS Sodium Chloride 10 ml 03/14/20 01:00 03/17/20 09:24 Normal Saline Flush 0.9% IVP 10 ml 0100,0900,1700 CORDELL Administration - Lab Result Fish Bone Diagrams: 03/17/20 04:43 03/17/20 04:43 - Additional Planning My Orders: My Active Orders 03/18/20 09:00 levoFLOXacin [Levaquin] 750 mg PO DAILY Subjective - Subjective Patient Reports: Feeling Better, Other (Getting cramping in her lower extremities then her knees "lock up".) Objective Vital Signs: Vital Signs - 24 hr 03/16/20 03/16/20 03/16/20 13:00 15:48 16:00 Temperature 36.7 C 37 C Heart Rate [ 86 91 52 L Brachial] Heart Rate [ Monitoring electrodes] Respiratory 21 16 Rate Blood Pressure [Left Radial artery] Blood Pressure 113/69 86/42 L [Right Brachial artery] Blood Pressure [Right Radial artery] O2 Saturation 96 96 03/16/20 03/16/20 03/16/20 16:05 16:25 22:00 Temperature 37.7 C H Heart Rate [ 52 L Brachial] Heart Rate [ 93 52 L Monitoring electrodes] Respiratory 16 Rate Blood Pressure [Left Radial artery] Blood Pressure 99/40 L 111/42 L [Right Brachial artery] Blood Pressure [Right Radial artery] O2 Saturation 95 03/16/20 03/17/20 03/17/20 23:53 04:43 08:12 Temperature 36.9 C 37.1 C 36.9 C Heart Rate [ 53 L 66 Brachial] Heart Rate [ 88 Monitoring electrodes] Respiratory 20 20 22 Rate Blood Pressure [Left Radial artery] Blood Pressure 98/43 L 107/63 [Right Brachial artery] Blood Pressure 98/73 [Right Radial artery] O2 Saturation 96 94 98 03/17/20 11:22 Temperature 37.0 C Heart Rate [ Brachial] Heart Rate [ 91 Monitoring electrodes] Respiratory 20 Rate Blood Pressure 113/68 [Left Radial artery] Blood Pressure [Right Brachial artery] Blood Pressure [Right Radial artery] O2 Saturation 97 Oxygen O2 Source Room air I&O (Last 24 Hrs): Intake and Output Totals x24h 03/15/20 03/16/20 03/17/20 23:59 23:59 23:59 Intake Total 450 1790 770 Output Total 1550 1800 480 Balance -1100 -10 290 General: Alert, Oriented x3 HEENT: EOMI, Mucous membr. moist/pink Neck: Supple, No JVD Neuro: Alert, Non Focal Cardiovascular: Regular rate, No murmurs Respiratory: No respiratory distress, Breath sounds nml Abdomen: Soft Extremities: Other (Multiple irregular shaped ulcers of varying sizes with a yellow base, pink borders, they are foul-smelling especially the one on the heel. Has venous stasis changes and 1+ edema to the mid shins with scaling and decreased turgor of the shins now.) - Results Results: Laboratory Results WBC 11.4 x10^3/uL (4.8-10.8) H 03/17/20 04:43 RBC 3.45 10^6/uL (4.20-5.40) L 03/17/20 04:43 Hgb 10.4 g/dL (12.0-16.0) L 03/17/20 04:43 Hct 33.1 % (37.0-47.0) L 03/17/20 04:43 MCV 95.9 fL (81.0-99.0) 03/17/20 04:43 MCH 30.1 pg (27.0-31.0) 03/17/20 04:43 MCHC 31.4 g/dL (32.0-36.0) L 03/17/20 04:43 RDW 14.2 % (12.0-15.0) 03/17/20 04:43 Plt Count 312 10^3/uL (130-450) 03/17/20 04:43 MPV 11.0 fL (7.9-10.8) H 03/17/20 04:43 Neut # (Auto) 8.3 10^3/uL (1.5-6.6) H 03/17/20 04:43 Lymph # (Auto) 1.7 10^3/uL (1.5-3.5) 03/17/20 04:43 [place] # (Auto) 1.0 10^3/uL (0.0-1.0) 03/17/20 04:43 Eos # (Auto) 0.2 10^3/uL (0.0-0.7) 03/17/20 04:43 Baso # (Auto) 0.1 10^3/uL (0.0-0.1) 03/17/20 04:43 Absolute Nucleated RBC 0.00 x10^3/uL 03/17/20 04:43 Total Counted 100 03/14/20 04:25 Band Neuts % (Manual) 2 % (0-10) 03/14/20 04:25 Abnorm Lymph % (Manual) 0 % 03/14/20 04:25 Nucleated RBC % 0.0 /100WBC 03/17/20 04:43 Neutrophils # (Manual) 15.1 10^3/uL (1.5-6.6) H 03/14/20 04:25 Lymphocytes # (Manual) 1.4 10^3/uL (1.5-3.5) L 03/14/20 04:25 Monocytes # (Manual) 1.1 10^3/uL (0.0-1.0) H 03/14/20 04:25 Eosinophils # (Manual) 0.0 10^3/uL (0-0.7) 03/14/20 04:25 Basophils # (Manual) 0.0 10^3/uL (0-0.1) 03/14/20 04:25 Differential Comment MANUAL DIFFERENTIAL 03/14/20 04:25 Platelet Estimate NORMAL (130-450,000) (NORMAL) 03/14/20 04:25 Platelet Morphology NORMAL APPEARANCE (NORMAL) 03/13/20 18:00 RBC Morph Micro Appear NORMAL APPEARANCE (NORMAL) 03/14/20 04:25 Sodium 137 mmol/L (135-145) 03/17/20 04:43 Potassium 3.6 mmol/L (3.5-5.0) 03/17/20 04:43 Chloride 103 mmol/L (101-111) 03/17/20 04:43 Carbon Dioxide 25 mmol/L (21-32) 03/17/20 04:43 Anion Gap 9.0 (6-13) 03/17/20 04:43 BUN 19 mg/dL (6-20) 03/17/20 04:43 Creatinine 0.6 mg/dL (0.4-1.0) 03/17/20 04:43 Estimated GFR (MDRD) 99 (>89) 03/17/20 04:43 Glucose 108 mg/dL (70-100) H 03/17/20 04:43 Lactic Acid 1.3 mmol/L (0.5-2.2) 03/14/20 14:35 Calcium 8.2 mg/dL (8.5-10.3) L 03/17/20 04:43 Phosphorus 2.7 mg/dL (2.5-4.6) 03/14/20 04:25 Magnesium 2.0 mg/dL (1.7-2.8) 03/14/20 04:25 Total Bilirubin 0.9 mg/dL (0.2-1.0) 03/13/20 18:00 AST 43 IU/L (10-42) H 03/13/20 18:00 ALT 41 IU/L (10-60) 03/13/20 18:00 Alkaline Phosphatase 128 IU/L (42-121) H 03/13/20 18:00 Troponin I High Sens 33.9 ng/L (2.3-14.8) H* 03/14/20 20:55 C-Reactive Protein 5.7 mg/dL (0-1.0) H 03/17/20 04:43 B-Natriuretic Peptide 110 pg/mL (5-100) H 03/13/20 18:00 Total Protein 7.5 g/dL (6.7-8.2) 03/13/20 18:00 Albumin 3.2 g/dL (3.2-5.5) 03/13/20 18:00 Globulin 4.3 g/dL (2.1-4.2) H 03/13/20 18:00 Albumin/Globulin Ratio 0.7 (1.0-2.2) L 03/13/20 18:00 Lipase 21 U/L (22-51) L 03/13/20 18:00 TSH 2.05 uIU/mL (0.34-5.60) 03/13/20 18:00 Urine Color YELLOW 03/13/20 19:35 Urine Clarity CLEAR (CLEAR) 03/13/20 19:35 Urine pH 6.0 PH (5.0-7.5) 03/13/20 19:35 Ur Specific [place] 1.025 (1.002-1.030) 03/13/20 19:35 Urine Protein 30 mg/dL (NEGATIVE) H 03/13/20 19:35 Urine Glucose (UA) NEGATIVE mg/dL (NEGATIVE) 03/13/20 19:35 Urine Ketones TRACE mg/dL (NEGATIVE) 03/13/20 19:35 Urine Occult Blood NEGATIVE (NEGATIVE) 03/13/20 19:35 Urine Nitrite NEGATIVE (NEGATIVE) 03/13/20 19:35 Urine Bilirubin NEGATIVE (NEGATIVE) 03/13/20 19:35 Urine Urobilinogen 1 (NORMAL) E.U./dL (NORMAL) 03/13/20 19:35 Ur Leukocyte Esterase NEGATIVE (NEGATIVE) 03/13/20 19:35 Urine RBC None Seen /HPF (0-5) 03/13/20 19:35 Urine WBC 0-3 /HPF (0-5) 03/13/20 19:35 Ur Squamous Epith Cells RARE Squamous (<= Few) 03/13/20 19:35 Urine Bacteria None Seen /HPF (None Seen) 03/13/20 19:35 Urine Casts 3-5 Hyaline Casts /LPF 03/13/20 19:35 Ur Microscopic Review INDICATED 03/13/20:35 Urine Culture Comments NOT INDICATED 03/13/20:
[2020-03-17] MEDS: ACETAMINOPHEN 325 MG TABLET PO PRN (22:03)
[2020-03-18] MEDS: SODIUM CHLORIDE FLUSH 0.9% 10 ML SYRINGE IVP SCH ×3 (00:19→19:26)
[2020-03-18 04:56] LABS: BASOPHILS # (AUTO) 0.1 10^3/uL (0.0-0.1); BASOPHILS % (AUTO) 0.6 %; EOSINOPHILS # (AUTO) 0.2 10^3/uL (0.0-0.7); EOSINOPHILS % (AUTO) 2.3 %; HGB - HEMOGLOBIN 10.5 g/dL (12.0-16.0); LYMPHOCYTES # (AUTO) 1.5 10^3/uL (1.5-3.5); LYMPHOCYTES % (AUTO) 15.1 %; MEAN CORPUSCULAR HEMOGLOBIN 30.4 pg (27.0-31.0); MEAN CORPUSCULAR HGB CONC 31.7 g/dL (32.0-36.0); MEAN CORPUSCULAR VOLUME 95.9 fL (81.0-99.0); MEAN PLATELET VOLUME 10.6 fL (7.9-10.8); MONOCYTES % (AUTO) 9.5 %; NEUTROPHILS # (AUTO) 7.1 10^3/uL (1.5-6.6); NEUTROPHILS % (AUTO) 71.3 %; PLT - PLATELET COUNT 317 10^3/uL (130-450); RED BLOOD COUNT 3.45 10^6/uL (4.20-5.40); RED CELL DISTRIBUTION WIDTH 14.4 % (12.0-15.0)
[2020-03-18 05:13] LABS: CALCIUM 8.3 mg/dL (8.5-10.3); CREATININE 0.6 mg/dL (0.4-1.0)
[2020-03-18] MEDS: ACETAMINOPHEN 325 MG TABLET PO PRN ×2 (05:18→22:34)
--- NOTE | 2020-03-18 09:00 | PROVIDER PROGRESS NOTE ---
Assessment/Plan - Problem List (1) Cellulitis of both lower extremities Assessment/Plan: Continue with antibiotics, she has been changed to Levaquin daily p.o. This is based on wound cultures, growing 5 different bacteria. Continue with every 3 day dressing changes. (2) Decubitus ulcer Qualifiers: Pressure injury location: heel Laterality: unspecified laterality Assessment/Plan: Continue with antibiotics as above in #1. This is based on positive wound cultures. The wound RN had recommended sharp debridement. I called orthopedics and Dr. Lewis said that this is usually general surgery's domain. Continue with topical dressing changes same as in #1. We will request a General Surgery wound consult for debridement tomorrow in the OR. (3) Leg cramps Assessment/Plan: This is likely related to being started on diuretics. Follow electrolytes and magnesium daily and replace if needed (4) Morbid obesity with BMI of 45.0-49.9, adult Assessment/Plan: As per history. There is a suspicion that she has obesity/hypoventilation syndrome because of the cor pulmonale found on echo. Overnight oximetry test has been ordered (5) Cor pulmonale Assessment/Plan: Echo this admission showed cor pulmonale. This is likely the cause of her chronic leg edema. He has not seen a doctor in years and was on no treatment for the leg edema which also caused venous stasis. There is a suspicion that she has obesity/hypoventilation syndrome because of the cor pulmonale found on echo. Overnight oximetry test has been ordered (6) Venous stasis dermatitis of both lower extremities Assessment/Plan: As above. (7) Generalized weakness Assessment/Plan: PT and OT have been ordered to be started. She knows that she will need SNF for further rehab. (8) Self neglect Assessment/Plan: As per history and documented in yesterday's note. (9) Poor hygiene Assessment/Plan: As per history and documented in yesterday's note. (10) Hypokalemia Assessment/Plan: Resolved (11) Prerenal azotemia Assessment/Plan: Resolved - Current Meds Current Meds: Current Medications Generic Name Dose Route Start Last Admin Trade Name Freq PRN Reason Stop Dose Admin Acetaminophen 650 mg 03/13/20 20:02 03/18/20 05:18 Tylenol PO 650 mg Q4HR PRN Administration Pain 1 to 4 Enoxaparin Sodium 40 mg 03/14/20 09:00 03/17/20 09:32 Lovenox SUBQ 40 mg DAILY CORDELL Administration Mineral Oil 1 applic 03/14/20 09:42 03/14/20 20:40 Cavilon TOP 1 applic PRN PRN Administration Skin Care Multi-Ingredient Ointment 1 applic 03/14/20 09:42 03/15/20 14:21 Zinc Oxide TOP 1 applic PRN PRN Administration Skin Care Nystatin 1 applic 03/13/20 23:00 03/17/20 20:24 Nystop TOP 1 applic BID CORDELL Administration Pyridoxine HCl 100 mg 03/13/20 23:00 03/17/20 20:16 Vitamin B-6 PO 100 mg BID CORDELL Administration Saccharomyces Boulardii 250 mg 03/14/20 17:00 03/17/20 17:24 Florastor PO 250 mg BIDWM CORDELL Administration Sodium Chloride 10 ml 03/13/20 20:02 03/14/20 09:26 Normal Saline Flush 0.9% IVP 10 ml PRN PRN Administration NEEDED PER PROVIDER ORDERS Sodium Chloride 10 ml 03/14/20 01:00 03/18/20 00:19 Normal Saline Flush 0.9% IVP Not Given 0100,0900,1700 CORDELL - Lab Result Fish Bone Diagrams: 03/18/20 04:43 03/18/20 04:43 - Additional Planning My Orders: My Active Orders 03/17/20 12:27 Night [Nocturnal O2 Saturation Study] [RC] .ONCE 03/17/20 12:43 Shower [RC] PRN 03/18/20 09:00 levoFLOXacin [Levaquin] 750 mg PO DAILY Subjective - Subjective Patient Reports: No Complaints Nursing Reports: Other (Additional open wound of the calf has mild bleeding today. The heel wounds are very malodorous) Objective Vital Signs: Vital Signs - 24 hr 03/17/20 03/17/20 03/17/20 11:22 15:44 20:00 Temperature 37.0 C 37.1 C 37.9 C H Heart Rate [ 91 Brachial] Heart Rate [ 91 93 Monitoring electrodes] Respiratory 20 16 Rate Blood Pressure 119/55 L 124/75 [Left Brachial artery] Blood Pressure 113/68 [Left Radial artery] O2 Saturation 97 99 94 03/17/20 03/17/2020 21:53 23:03 23:42 Temperature 37.9 C H 37.5 C 37.4 C Heart Rate [ Brachial] Heart Rate [ 95 Monitoring electrodes] Respiratory 15 Rate Blood Pressure 128/63 [Left Brachial artery] Blood Pressure [Left Radial artery] O2 Saturation 98 03/18/20 03/18/20 05:21 07:50 Temperature 36.6 C 36.8 C Heart Rate [ 84 Brachial] Heart Rate [ 79 Monitoring electrodes] Respiratory 16 17 Rate Blood Pressure 112/41 L 125/61 [Left Brachial artery] Blood Pressure [Left Radial artery] O2 Saturation 97 98 Oxygen O2 Source Room air I&O (Last 24 Hrs): Intake and Output Totals x24h 03/16/20 03/17/20 03/18/20 23:59 23:59 22:59 Intake Total 1790 1020 Output Total 1800 2555 400 [facility] -10 -1535 -400 General: Alert, Oriented x3 HEENT: Mucous membr. moist/pink Neck: No JVD Neuro: Alert, Non Focal Cardiovascular: Regular rate Respiratory: No respiratory distress Abdomen: Other (Not distended) Extremities: Other (1+ edema, venous stasis changes, multiple bandages covering many wounds of both lower extremities and heels) - Results Results: Laboratory Results WBC 10.0 x10^3/uL (4.8-10.8) 03/18/20 04:43 RBC 3.45 10^6/uL (4.20-5.40) L 03/18/20 04:43 Hgb 10.5 g/dL (12.0-16.0) L 03/18/20 04:43 Hct 33.1 % (37.0-47.0) L 03/18/20 04:43 MCV 95.9 fL (81.0-99.0) 03/18/20 04:43 MCH 30.4 pg (27.0-31.0) 03/18/20 04:43 MCHC 31.7 g/dL (32.0-36.0) L 03/18/20 04:43 RDW 14.4 % (12.0-15.0) 03/18/20 04:43 Plt Count 317 10^3/uL (130-450) 03/18/20 04:43 MPV 10.6 fL (7.9-10.8) 03/18/20 04:43 Neut # (Auto) 7.1 10^3/uL (1.5-6.6) H 03/18/20 04:43 Lymph # (Auto) 1.5 10^3/uL (1.5-3.5) 03/18/20 04:43 [place] # (Auto) 1.0 10^3/uL (0.0-1.0) 03/18/20 04:43 Eos # (Auto) 0.2 10^3/uL (0.0-0.7) 03/18/20 04:43 Baso # (Auto) 0.1 10^3/uL (0.0-0.1) 03/18/20 04:43 Absolute Nucleated RBC 0.00 x10^3/uL 03/18/20 04:43 Total Counted 100 03/14/20 04:25 Band Neuts % (Manual) 2 % (0-10) 03/14/20 04:25 Abnorm Lymph % (Manual) 0 % 03/14/20 04:25 Nucleated RBC % 0.0 /100WBC 03/18/20 04:43 Neutrophils # (Manual) 15.1 10^3/uL (1.5-6.6) H 03/14/20 04:25 Lymphocytes # (Manual) 1.4 10^3/uL (1.5-3.5) L 03/14/20 04:25 Monocytes # (Manual) 1.1 10^3/uL (0.0-1.0) H 03/14/20 04:25 Eosinophils # (Manual) 0.0 10^3/uL (0-0.7) 03/14/20 04:25 Basophils # (Manual) 0.0 10^3/uL (0-0.1) 03/14/20 04:25 Differential Comment MANUAL DIFFERENTIAL 03/14/20 04:25 Platelet Estimate NORMAL (130-450,000) (NORMAL) 03/14/20 04:25 Platelet Morphology NORMAL APPEARANCE (NORMAL) 03/13/20 18:00 RBC Morph Micro Appear NORMAL APPEARANCE (NORMAL) 03/14/20 04:25 Sodium 137 mmol/L (135-145) 03/18/20 04:43 Potassium 3.6 mmol/L (3.5-5.0) 03/18/20 04:43 Chloride 102 mmol/L (101-111) 03/18/20 04:43 Carbon Dioxide 24 mmol/L (21-32) 03/18/20 04:43 Anion Gap 11.0 (6-13) 03/18/20 04:43 BUN 16 mg/dL (6-20) 03/18/20 04:43 Creatinine 0.6 mg/dL (0.4-1.0) 03/18/20 04:43 Estimated GFR (MDRD) 99 (>89) 03/18/20 04:43 Glucose 105 mg/dL (70-100) H 03/18/20 04:43 Lactic Acid 1.3 mmol/L (0.5-2.2) 03/14/20 14:35 Calcium 8.3 mg/dL (8.5-10.3) L 03/18/20 04:43 Phosphorus 2.7 mg/dL (2.5-4.6) 03/14/20 04:25 Magnesium 2.0 mg/dL (1.7-2.8) 03/14/20 04:25 Total Bilirubin 0.9 mg/dL (0.2-1.0) 03/13/20 18:00 AST 43 IU/L (10-42) H 03/13/20 18:00 ALT 41 IU/L (10-60) 03/13/20 18:00 Alkaline Phosphatase 128 IU/L (42-121) H 03/13/20 18:00 Troponin I High Sens 33.9 ng/L (2.3-14.8) H* 03/14/20 20:55 C-Reactive Protein 4.0 mg/dL (0-1.0) H 03/18/20 04:43 B-Natriuretic Peptide 110 pg/mL (5-100) H 03/13/20 18:00 Total Protein 7.5 g/dL (6.7-8.2) 03/13/20 18:00 Albumin 3.2 g/dL (3.2-5.5) 03/13/20 18:00 Globulin 4.3 g/dL (2.1-4.2) H 03/13/20 18:00 Albumin/Globulin Ratio 0.7 (1.0-2.2) L 03/13/20 18:00 Lipase 21 U/L (22-51) L 03/13/20 18:00 TSH 2.05 uIU/mL (0.34-5.60) 03/13/20 18:00 Urine Color YELLOW 03/13/20 19:35 Urine Clarity CLEAR (CLEAR) 03/13/20 19:35 Urine pH 6.0 PH (5.0-7.5) 03/13/20 19:35 Ur Specific [place] 1.025 (1.002-1.030) 03/13/20 19:35 Urine Protein 30 mg/dL (NEGATIVE) H 03/13/20 19:35 Urine Glucose (UA) NEGATIVE mg/dL (NEGATIVE) 03/13/20 19: Urine Ketones TRACE mg/dL (NEGATIVE) 03/13/20 19:35 Urine Occult Blood NEGATIVE (NEGATIVE) 03/13/20 19:35 Urine Nitrite NEGATIVE (NEGATIVE) 03/13/20 19:35 Urine Bilirubin NEGATIVE (NEGATIVE) 03/13/20 19:35 Urine Urobilinogen 1 (NORMAL) E.U./dL (NORMAL) 03/13/20 19:35 Ur Leukocyte Esterase NEGATIVE (NEGATIVE) 03/13/20 19:35 Urine RBC None Seen /HPF (0-5) 03/13/20 19:35 Urine WBC 0-3 /HPF (0-5) 03/13/20 19:35 Ur Squamous Epith Cells RARE Squamous (<= Few) 03/13/20 19:35 Urine Bacteria None Seen /HPF (None Seen) 03/13/20 19:35 Urine Casts 3-5 Hyaline Casts /LPF 03/13/20 19:35 Ur Microscopic Review INDICATED 03/13/20 19:35 Urine Culture Comments NOT INDICATED 03/13/20 19:35
[2020-03-18] MEDS: levoFLOXacin 250 MG TABLET PO SCH (09:03)
[2020-03-18] MEDS: SACCHAROMYCES BOULARDII 250 MG CAPSULE PO SCH ×2 (09:04→19:26)
[2020-03-18] MEDS: PYRIDOXINE 100 MG TABLET PO SCH ×2 (09:04→22:35)
[2020-03-18] MEDS: ENOXAPARIN 40 MG/0.4 ML SYRINGE SUBQ SCH (09:04)
[2020-03-18] MEDS: NYSTATIN POWDER 15 GM TOP SCH ×2 (09:05→22:36)
[2020-03-18] MEDS: MAGNESIUM OXIDE 400 MG TABLET PO SCH (19:26)
[2020-03-18] MEDS: MULTIVITAMIN W/MINERALS TABLET PO SCH (19:26)
[2020-03-19] MEDS: SODIUM CHLORIDE FLUSH 0.9% 10 ML SYRINGE IVP SCH ×5 (01:02→23:42)
[2020-03-19 04:49] LABS: BASOPHILS # (AUTO) 0.1 10^3/uL (0.0-0.1); BASOPHILS % (AUTO) 0.6 %; EOSINOPHILS # (AUTO) 0.2 10^3/uL (0.0-0.7); LYMPHOCYTES # (AUTO) 1.4 10^3/uL (1.5-3.5); LYMPHOCYTES % (AUTO) 14.8 %; MEAN CORPUSCULAR HEMOGLOBIN 29.8 pg (27.0-31.0); MEAN CORPUSCULAR HGB CONC 30.8 g/dL (32.0-36.0); MEAN CORPUSCULAR VOLUME 96.7 fL (81.0-99.0); MEAN PLATELET VOLUME 10.6 fL (7.9-10.8); MONOCYTES # (AUTO) 0.8 10^3/uL (0.0-1.0); MONOCYTES % (AUTO) 8.7 %; PLT - PLATELET COUNT 296 10^3/uL (130-450); RED BLOOD COUNT 3.36 10^6/uL (4.20-5.40); RED CELL DISTRIBUTION WIDTH 14.3 % (12.0-15.0); WHITE BLOOD COUNT 9.6 x10^3/uL (4.8-10.8)
[2020-03-19 05:07] LABS: CALCIUM 8.2 mg/dL (8.5-10.3); CREATININE 0.6 mg/dL (0.4-1.0); CRP - C-REACTIVE PROTEIN 2.6 mg/dL (0-1.0)
[2020-03-19] MEDS: levoFLOXacin 250 MG TABLET PO SCH (08:52)
[2020-03-19] MEDS: ENOXAPARIN 40 MG/0.4 ML SYRINGE SUBQ SCH (08:55)
[2020-03-19] MEDS: ACETAMINOPHEN 325 MG TABLET PO PRN ×3 (08:55→20:17)
[2020-03-19] MEDS: SACCHAROMYCES BOULARDII 250 MG CAPSULE PO SCH ×2 (08:56→18:11)
[2020-03-19] MEDS: NYSTATIN POWDER 15 GM TOP SCH ×2 (08:57→20:17)
[2020-03-19] MEDS: PYRIDOXINE 100 MG TABLET PO SCH ×2 (10:59→20:17)
[2020-03-19] MEDS: polyethylene glycoL 3350 17 GM PACKET PO SCH (11:00)
--- NOTE | 2020-03-19 11:12 | CONSULTATION NOTE ---
Referring Provider Name of Referring Provider:: Toni Jerry Consult Date: 03/19/20 Chief Complaint - Chief Complaint Chief Complaint: Painful and foul smelling pressure ulcers involving both heels History of Present Illness - Admitted From Admitted From:: ED - History Obtained From Records Reviewed: Physician and nurse's notes History obtained from: Patient and physician Exam Limitations: Patient discomfort and cooperation - History of Present Illness HPI Comment/Other: Unfortunate 69 year old lady with multiple pressure ulcers secondary to complex medical and social issues. She has been seen by the wound clinic and they have recommended sharp debridement of bilateral heel ulcers. The patient reports both wounds are very painful and she is not able to stand. She wanders if they will hurt less once they are treated in the operating room. She also reports she doesn't want to participate with physical therapy due to discomfort and would very much like to discontinue that service. She reports she did not realize "any thing bad was happening" to her heels. History - Past Medical History Cardiovascular: reports: None Respiratory: reports: None Neuro: reports: None Endocrine/Autoimmune: reports: None GI: reports: None RENAL CASE MANAGER: reports: Other () : reports: None HEENT: reports: None Psych: reports: None Musculoskeletal: reports: None Derm: reports: None MRSA Hx?: No Other Past Medical History: Morbidly obese; multiple leg wounds and overall poor skin condition. Humeral neck fx (01/2007). - Family & Social History Family History Comment/Other: Dad at age 69. He had metastatic prostate cancer. Mom just March 2019 of complications of ulcerative colitis after being in the hospital for a month. The patient's brother was supposed to be taking care of her, but he is an alcoholic, was failing to give her her medications and feed her and she ended up dying of complications. 1 brother is an alcoholic. 1 sister is healthy without high blood pressure, diabetes, dementia, heart attack, stroke. 2 children are completely healthy. Daughter lives in [place], and son lives in [place]. Living arrangement: At home Living Situation: Alone Social History Notes: Never smoked. Never really drank. No history of recreational substance abuse. She is happily . Says that the best thing in her life was retiring. She works for [employer] for close to 25 years. 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 She loves being at home by herself. So the pandemic situation is something that did not bother her. She does not have any understanding that her self neglect may have led to this current situation. She stoutly maintains that she is able to take care of herself. She does not want us to discuss any of this with her daughter. Daughter will be coming over from [place] tomorrow. I have explained to her that Adult Protective Services will most likely be notified. It would help if she, social work, and the daughter can sit down to discuss how to move forward and keep her safe. - Substance History Use: Uses substance without health or social issues: NONE Abuse: Recurrent use of substance despite neg consequences: NONE Dependence: Experiences withdrawal or developed tolerances: NONE - POLST Patient has POLST: No POLST Status: Full Code Meds/Allgy - Home Medications Home Medications: Ambulatory Orders Medication Instructions Recorded Confirmed No Known Home Medications 03/13/20 03/13/20 - Allergies Allergies/Adverse Reactions: Allergies Allergy/AdvReac Type Severity Reaction Status Date / Time No Known Drug Allergies Allergy Verified 03/13/20 17:38 Exam - Vital Signs Vital Signs: Vital Signs x48h Temp Pulse Resp BP BP Pulse Ox 03/19/20 08:00 37.0 C 92 18 127/68 97 03/19/20 03:50 37 C 89 20 107/44 L 99 - Physical Exam Extremities: positive: Other (Open, foul smelling wounds of bilateral heels with visible necrotic tissue and purulent drainage. 3+ bilateral lower extremity edema. No palpable pulses.) Conclusion and Plan - Lab Results Microbiology Results 03/14/20 10:30 Foot - Right Wound Culture - Final Proteus Hauseri Beta Hemolytic Strep Group G Klebsiella Pneumoniae Enterococcus Faecalis. Staphylococcus Aureus 03/13/20 19:30 Blood - Right Arm Blood Culture - Final NO GROWTH AFTER 5 DAYS 03/13/20 18:58 Blood - Right Arm Blood Culture - Final NO GROWTH AFTER 5 DAYS 03/14/20 10:30 Foot - Left Wound Culture - Final Proteus Hauseri Beta Hemolytic Strep Group G Enterococcus Faecalis. 03/14/20 10:30 Leg - Right Wound Culture - Final Beta Hemolytic Strep Group G Providencia Rettgeri Proteus Hauseri 03/14/20 10:30 Leg - Left Wound Culture - Final Beta Hemolytic Strep Group G Proteus Hauseri Klebsiella Pneumoniae Laboratory Results 03/19/20 04:30: Sodium 137, Potassium 3.5, Chloride 103, Carbon Dioxide 25, Anion Gap 9.0, BUN 20, Creatinine 0.6, Estimated GFR (MDRD) 99, Glucose 105 H, Calcium 8.2 L, C-Reactive Protein 2.6 H 03/19/20 04:30: WBC 9.6, RBC 3.36 L, Hgb 10.0 L, Hct 32.5 L, MCV 96.7, MCH 29.8, MCHC 30.8 L, RDW 14.3, Plt Count 296, MPV 10.6, Neut # (Auto) 7.0 H, Lymph # (Auto) 1.4 L, [place] # (Auto) 0.8, Eos # (Auto) 0.2, Baso # (Auto) 0.1, Absolute Nucleated RBC 0.00, Nucleated RBC % 0.0 03/18/20 04:43: Sodium 137, Potassium 3.6, Chloride 102, Carbon Dioxide 24, Anion Gap 11.0, BUN 16, Creatinine 0.6, Estimated GFR (MDRD) 99, Glucose 105 H, Calcium 8.3 L, C-Reactive Protein 4.0 H 03/18/20 04:43: WBC 10.0, RBC 3.45 L, Hgb 10.5 L, Hct 33.1 L, MCV 95.9, MCH 30 .4, MCHC 31.7 L, RDW 14.4, Plt Count 317, MPV 10.6, Neut # (Auto) 7.1 H, Lymph # (Auto) 1.5, [place] # (Auto) 1.0, Eos # (Auto) 0.2, Baso # (Auto) 0.1, Absolute Nucleated RBC 0.00, Nucleated RBC % 0.0 - Diagnosis Diagnosis: Bilateral decubitus heel ulcers. - Plan Plan: I agree these wounds would benefit from sharp debridement. The procedure has been scheduled for 03/20 at 4 PM.
--- NOTE | 2020-03-19 13:35 | PROVIDER PROGRESS NOTE ---
Assessment/Plan - Problem List (1) Cellulitis of both lower extremities Assessment/Plan: She presented with warm red calves and shins on top of which were multiple decubitus skin ulcers. The wounds have grown on 5 different bacteria. They are all sensitive to the liliana quinolone she is on. (2) Decubitus ulcer Qualifiers: Pressure injury location: heel Laterality: unspecified laterality Assessment/Plan: Her bilateral heel ulcers give her the most pain. This is also where the malodorous complaint originates from. Wound nurse recommended sharp debridement. This is not in the domain of orthopedics, discussed with Dr. Lewis yesterday. Will request general surgery consult for sharp debridement, Dr. Coffman saw the patient, will plan on taking her to surgery tomorrow she said. Dr. Lewis recommends only toe-touch or pivot which was passed on to the physical therapist. New with pain meds as needed (3) Leg cramps Assessment/Plan: Is likely related to the new diuretic she was put on at admission. Correct electrolyte or magnesium abnormalities (4) Morbid obesity with BMI of 45.0-49.9, adult Assessment/Plan: As per history. (5) Cor pulmonale Assessment/Plan: This is a new diagnosis echo done this admission. Because of her obesity, suspect obesity-hypoventilation syndrome. Overnight oximetry test was done for this reason. She failed her overnight oximetry, she does need an oxygen order due to nocturnal desaturations. (6) Venous stasis dermatitis of both lower extremities Assessment/Plan: This was found at admission, likely related to prolonged leg edema from her cor pulmonale from her immobility from her morbid obesity. (7) Generalized weakness Assessment/Plan: She is apparently been bedridden for a long period of time to have such deep and multiple decubitus ulcers of her legs. PT has been ordered, she has pain in heels. PT is doing exercise in her bed. OOB to chair is ordered (may need a lift in room, as for bariatric pts). (8) Self neglect Assessment/Plan: She once again repeated that she did not think that her physical condition was poor, in the consultation with Dr. Coffman today. (9) Poor hygiene Assessment/Plan: There was no running water in her residence. (10) Hypokalemia Assessment/Plan: Resolved. (11) Prerenal azotemia Assessment/Plan: Resolved with IV replacement - Current Meds Current Meds: Current Medications Generic Name Dose Route Start Last Admin Trade Name Freq PRN Reason Stop Dose Admin Acetaminophen 650 mg 03/13/20 20:02 03/19/20 13:21 Tylenol PO 650 mg Q4HR PRN Administration Pain 1 to 4 Enoxaparin Sodium 40 mg 03/14/20 09:00 03/19/20 08:55 Lovenox SUBQ 40 mg DAILY CORDELL Administration Levofloxacin 750 mg 03/18/20 09:00 03/19/20 08:52 Levaquin PO 750 mg DAILY CORDELL Administration Magnesium Oxide 400 mg 03/18/20 17:00 03/18/20 19:26 Mag Ox PO 400 mg 1700 CORDELL Administration Mineral Oil 1 applic 03/14/20 09:42 03/14/20 20:40 Cavilon TOP 1 applic PRN PRN Administration Skin Care Multi-Ingredient Ointment 1 applic 03/14/20 09:42 03/15/20 14:21 Zinc Oxide TOP 1 applic PRN PRN Administration Skin Care Multivitamins/Minerals 1 tab 03/18/20 17:00 03/18/20 19:26 Theragran M PO 1 tab 1700 CORDELL Administration Nystatin 1 applic 03/13/20 23:00 03/19/20 08:57 Nystop TOP 1 applic BID CORDELL Administration Polyethylene Glycol 17 gm 03/19/20 11:00 03/19/20 11:00 Miralax PO 17 gm DAILY CORDELL Administration Pyridoxine HCl 100 mg 03/13/20 23:00 03/19/20 10:59 Vitamin B-6 PO 100 mg BID CORDELL Administration Saccharomyces Boulardii 250 mg 03/14/20 17:00 03/19/20 08:56 Florastor PO 250 mg BIDWM CORDELL Administration Sodium Chloride 10 ml 03/13/20 20:02 03/14/20 09:26 Normal Saline Flush 0.9% IVP 10 ml PRN PRN Administration NEEDED PER PROVIDER ORDERS Sodium Chloride 10 ml 03/14/20 01:00 03/19/20 09:16 Normal Saline Flush 0.9% IVP Not Given 0100,0900,1700 CORDELL - Lab Result Fish Bone Diagrams: 03/19/20 04:30 03/19/20 04:30 - Additional Planning My Orders: My Active Orders 03/18/20 14:06 Miscellaenous Nursing Order [RC] QSHIFT 03/19/20 Consult [General Surgery Consult] [CONS] Routine 03/19/20 11:00 polyethylene glycoL 3350 [Miralax] 17 gm PO DAILY Subjective - Subjective Patient Reports: Resting Comfortably, Pain (Pain in the heels when she is out of bed working with PT) Objective Vital Signs: Vital Signs - 24 hr 03/18/20 03/18/20 03/18/20 15:46 19:00 23:21 Temperature 37.0 C 36.8 C 37.0 C Heart Rate [ 95 97 91 Brachial] Heart Rate [ Monitoring electrodes] Respiratory 18 16 18 Rate Blood Pressure 95/47 L [Left Brachial artery] Blood Pressure 112/97 H 125/74 [Right Brachial artery] O2 Saturation 99 95 96 03/19/20 03/19/20 03/19/20 03:50 08:00 11:10 Temperature 37 C 37.0 C 36.9 C Heart Rate [ 89 92 Brachial] Heart Rate [ 93 Monitoring electrodes] Respiratory 20 18 18 Rate Blood Pressure 107/44 L [Left Brachial artery] Blood Pressure 127/68 115/63 [Right Brachial artery] O2 Saturation 99 97 97 Oxygen O2 Source Room air I&O (Last 24 Hrs): Intake and Output Totals x24h 03/18/20 03/18/20 03/19/20 00:59 23:59 23:59 Intake Total 435 Output Total 1500 Balance -1065 General: Alert, Oriented x3 HEENT: EOMI, Mucous membr. moist/pink Neck: Supple, No JVD Neuro: Alert, Non Focal (Except possible sensory impairment of the lower extremities) Cardiovascular: Regular rate Respiratory: No respiratory distress Abdomen: Soft, Other (Obese with pannus) Extremities: Other (1+ edema below the shins, venous stasis, multiple decubital wounds that are all bandaged. Bilateral very large heel ulcers that are bandaged and malodorous) - Results Results: Laboratory Results WBC 9.6 x10^3/uL (4.8-10.8) 03/19/20 04:30 RBC 3.36 10^6/uL (4.20-5.40) L 03/19/20 04:30 Hgb 10.0 g/dL (12.0-16.0) L 03/19/20 04:30 Hct 32.5 % (37.0-47.0) L 03/19/20 04:30 MCV 96.7 fL (81.0-99.0) 03/19/20 04:30 MCH 29.8 pg (27.0-31.0) 03/19/20 04:30 MCHC 30.8 g/dL (32.0-36.0) L 03/19/20 04:30 RDW 14.3 % (12.0-15.0) 03/19/20 04:30 Plt Count 296 10^3/uL (130-450) 03/19/20 04:30 MPV 10.6 fL (7.9-10.8) 03/19/20 04:30 Neut # (Auto) 7.0 10^3/uL (1.5-6.6) H 03/19/20 04:30 Lymph # (Auto) 1.4 10^3/uL (1.5-3.5) L 03/19/20 04:30 [place] # (Auto) 0.8 10^3/uL (0.0-1.0) 03/19/20 04:30 Eos # (Auto) 0.2 10^3/uL (0.0-0.7) 03/19/20 04:30 Baso # (Auto) 0.1 10^3/uL (0.0-0.1) 03/19/20 04:30 Absolute Nucleated RBC 0.00 x10^3/uL 03/19/20 04:30 Total Counted 100 03/14/20 04:25 Band Neuts % (Manual) 2 % (0-10) 03/14/20 04:25 Abnorm Lymph % (Manual) 0 % 03/14/20 04:25 Nucleated RBC % 0.0 /100WBC 03/19/20 04:30 Neutrophils # (Manual) 15.1 10^3/uL (1.5-6.6) H 03/14/20 04:25 Lymphocytes # (Manual) 1.4 10^3/uL (1.5-3.5) L 03/14/20 04:25 Monocytes # (Manual) 1.1 10^3/uL (0.0-1.0) H 03/14/20 04:25 Eosinophils # (Manual) 0.0 10^3/uL (0-0.7) 03/14/20 04:25 Basophils # (Manual) 0.0 10^3/uL (0-0.1) 03/14/20 04:25 Differential Comment MANUAL DIFFERENTIAL 03/14/20 04:25 Platelet Estimate NORMAL (130-450,000) (NORMAL) 03/14/20 04:25 Platelet Morphology NORMAL APPEARANCE (NORMAL) 03/13/20 18:00 RBC Morph Micro Appear NORMAL APPEARANCE (NORMAL) 03/14/20 04:25 Sodium 137 mmol/L (135-145) 03/19/20 04:30 Potassium 3.5 mmol/L (3.5-5.0) 03/19/20 04:30 Chloride 103 mmol/L (101-111) 03/19/20 04:30 Carbon Dioxide 25 mmol/L (21-32) 03/19/20 04:30 Anion Gap 9.0 (6-13) 03/19/20 04:30 BUN 20 mg/dL (6-20) 03/19/20 04:30 Creatinine 0.6 mg/dL (0.4-1.0) 03/19/20 04:30 Estimated GFR (MDRD) 99 (>89) 03/19/20 04:30 Glucose 105 mg/dL (70-100) H 03/19/20 04:30 Lactic Acid 1.3 mmol/L (0.5-2.2) 03/14/20 14:35 Calcium 8.2 mg/dL (8.5-10.3) L 03/19/20 04:30 Phosphorus 2.7 mg/dL (2.5-4.6) 03/14/20 04:25 Magnesium 2.0 mg/dL (1.7-2.8) 03/14/20 04:25 Total Bilirubin 0.9 mg/dL (0.2-1.0) 03/13/20 18:00 AST 43 IU/L (10-42) H 03/13/20 18:00 ALT 41 IU/L (10-60) 03/13/20 18:00 Alkaline Phosphatase 128 IU/L (42-121) H 03/13/20 18:00 Troponin I High Sens 33.9 ng/L (2.3-14.8) H* 03/14/20 20:55 C-Reactive Protein 2.6 mg/dL (0-1.0) H 03/19/20 04:30 B-Natriuretic Peptide 110 pg/mL (5-100) H 03/13/20 18:00 Total Protein 7.5 g/dL (6.7-8.2) 03/13/20 18:00 Albumin 3.2 g/dL (3.2-5.5) 03/13/20 18:00 Globulin 4.3 g/dL (2.1-4.2) H 03/13/20 18:00 Albumin/Globulin Ratio 0.7 (1.0-2.2) L 03/13/20 18:00 Lipase 21 U/L (22-51) L 03/13/20 18:00 TSH 2.05 uIU/mL (0.34-5.60) 03/13/20 18:00 Urine Color YELLOW 03/13/20 19:35 Urine Clarity CLEAR (CLEAR) 03/13/20 19:35 Urine pH 6.0 PH (5.0-7.5) 03/13/20 19:35 Ur Specific [place] 1.025 (1.002-1.030) 03/13/20 19:35 Urine Protein 30 mg/dL (NEGATIVE) H 03/13/20 19:35 Urine Glucose (UA) NEGATIVE mg/dL (NEGATIVE) 03/13/20 19:35 Urine Ketones TRACE mg/dL (NEGATIVE) 03/13/20 19:35 Urine Occult Blood NEGATIVE (NEGATIVE) 03/13/20 19:35 Urine Nitrite NEGATIVE (NEGATIVE) 03/13/20 19:35 Urine Bilirubin NEGATIVE (NEGATIVE) 03/13/20 19:35 Urine Urobilinogen 1 (NORMAL) E.U./dL (NORMAL) 03/13/20 19:35 Ur Leukocyte Esterase NEGATIVE (NEGATIVE) 03/13/20 19:35 Urine RBC None Seen /HPF (0-5) 03/13/20 19:35 Urine WBC 0-3 /HPF (0-5) 03/13/20 19:35 Ur Squamous Epith Cells RARE Squamous (<= Few) 03/13/20 19:35 Urine Bacteria None Seen /HPF (None Seen) 03/13/20 19:35 Urine Casts 3-5 Hyaline Casts /LPF 03/13/20 19:35 Ur Microscopic Review INDICATED 03/13/20 19:35 Urine Culture Comments NOT INDICATED 03/13/20 19:35
[2020-03-19] MEDS: MAGNESIUM OXIDE 400 MG TABLET PO SCH (18:11)
[2020-03-19] MEDS: MULTIVITAMIN W/MINERALS TABLET PO SCH (18:11)
[2020-03-20] MEDS: ACETAMINOPHEN 325 MG TABLET PO PRN ×3 (01:21→18:49)
[2020-03-20 08:07] LABS: BASOPHILS # (AUTO) 0.1 10^3/uL (0.0-0.1); BASOPHILS % (AUTO) 0.7 %; EOSINOPHILS # (AUTO) 0.2 10^3/uL (0.0-0.7); EOSINOPHILS % (AUTO) 2.2 %; HGB - HEMOGLOBIN 10.3 g/dL (12.0-16.0); MEAN CORPUSCULAR HEMOGLOBIN 30.2 pg (27.0-31.0); MEAN CORPUSCULAR HGB CONC 31.6 g/dL (32.0-36.0); MEAN CORPUSCULAR VOLUME 95.6 fL (81.0-99.0); MEAN PLATELET VOLUME 10.1 fL (7.9-10.8); MONOCYTES # (AUTO) 0.8 10^3/uL (0.0-1.0); NEUTROPHILS # (AUTO) 5.3 10^3/uL (1.5-6.6); NEUTROPHILS % (AUTO) 71.6 %; PLT - PLATELET COUNT 301 10^3/uL (130-450); RED BLOOD COUNT 3.41 10^6/uL (4.20-5.40); RED CELL DISTRIBUTION WIDTH 14.6 % (12.0-15.0); WHITE BLOOD COUNT 7.4 x10^3/uL (4.8-10.8)
[2020-03-20 08:24] LABS: CALCIUM 8.2 mg/dL (8.5-10.3); CREATININE 0.5 mg/dL (0.4-1.0); CRP - C-REACTIVE PROTEIN 1.8 mg/dL (0-1.0)
[2020-03-20] MEDS: ENOXAPARIN 40 MG/0.4 ML SYRINGE SUBQ SCH (08:53)
[2020-03-20] MEDS: SACCHAROMYCES BOULARDII 250 MG CAPSULE PO SCH ×2 (08:54→18:11)
[2020-03-20] MEDS: PYRIDOXINE 100 MG TABLET PO SCH ×2 (08:54→20:27)
[2020-03-20] MEDS: levoFLOXacin 250 MG TABLET PO SCH (08:54)
[2020-03-20] MEDS: NYSTATIN POWDER 15 GM TOP SCH (08:56)
[2020-03-20] MEDS: SODIUM CHLORIDE FLUSH 0.9% 10 ML SYRINGE IVP SCH ×2 (08:57→18:49)
[2020-03-20] MEDS: polyethylene glycoL 3350 17 GM PACKET PO SCH (09:02)
[2020-03-20] MEDS ORDERED: POTASSIUM CHLORIDE 20 MEQ TABLET PO ONE (09:07)
[2020-03-20] MEDS ORDERED: DEXAMETHASONE 4 MG/ML VIAL IVP ONE (10:15)
[2020-03-20] MEDS ORDERED: KETAMINE 500 MG/10 ML VIAL IVP ONE (10:15)
[2020-03-20] MEDS ORDERED: PROPOFOL 200 MG/20 ML VIAL IVP ONE (10:15)
[2020-03-20] MEDS ORDERED: ONDANSETRON 4 MG/2 ML VIAL IVP ONE (10:15)
[2020-03-20] MEDS ORDERED: PHENYLEPHRINE 10 MG/ML VIAL IV ONE (10:15)
--- NOTE | 2020-03-20 10:22 | ANESTHESIA ---
Pre-Anesthesia VS, & Labs - Diagnosis Diagnosis Bilateral decubitus heel ulcers. - Procedure Macho. heel debridement Vital Signs: Temp Pulse Resp BP Pulse Ox 36.8 C 92 18 119/60 94 03/20/20 08:00 03/20/20 08:00 03/20/20 08:00 03/20/20 08:00 03/20/20 08:00 Height: 5 ft 3 in Weight (kg): 116 kg Body Mass Index: 45.3 BMI Classification: Morbidly Obese - NPO Last Fluid Intake: Clear liquids at 0800 - Is Patient ?: No - Lab Results Current Lab Results: Laboratory Tests 03/20/20 08:00: Sodium 136, Potassium 3.4 L, Chloride 102, Carbon Dioxide 25, Anion Gap 9.0, BUN 19, Creatinine 0.5, Estimated GFR (MDRD) 123, Glucose 109 H, Calcium 8.2 L, C-Reactive Protein 1.8 H 03/20/20 08:00: WBC 7.4, RBC 3.41 L, Hgb 10.3 L, Hct 32.6 L, MCV 95.6, MCH 30.2, MCHC 31.6 L, RDW 14.6, Plt Count 301, MPV 10.1, Neut # (Auto) 5.3, Lymph # (Auto) 1.0 L, [place] # (Auto) 0.8, Eos # (Auto) 0.2, Baso # (Auto) 0.1, Absolute Nucleated RBC 0.00, Nucleated RBC % 0.0 03/19/20 04:30: Sodium 137, Potassium 3.5, Chloride 103, Carbon Dioxide 25, Anion Gap 9.0, BUN 20, Creatinine 0.6, Estimated GFR (MDRD) 99, Glucose 105 H, Calcium 8.2 L, C-Reactive Protein 2.6 H 03/19/20 04:30: WBC 9.6, RBC 3.36 L, Hgb 10.0 L, Hct 32.5 L, MCV 96.7, MCH 29.8, MCHC 30.8 L, RDW 14.3, Plt Count 296, MPV 10.6, Neut # (Auto) 7.0 H, Lymph # (Auto) 1.4 L, [place] # (Auto) 0.8, Eos # (Auto) 0.2, Baso # (Auto) 0.1, Absolute Nucleated RBC 0.00, Nucleated RBC % 0.0 03/18/20 04:43: Sodium 137, Potassium 3.6, Chloride 102, Carbon Dioxide 24, Anio n Gap 11.0, BUN 16, Creatinine 0.6, Estimated GFR (MDRD) 99, Glucose 105 H, Calcium 8.3 L, C-Reactive Protein 4.0 H 03/18/20 04:43: WBC 10.0, RBC 3.45 L, Hgb 10.5 L, Hct 33.1 L, MCV 95.9, MCH 30.4, MCHC 31.7 L, RDW 14.4, Plt Count 317, MPV 10.6, Neut # (Auto) 7.1 H, Lymph # (Auto) 1.5, [place] # (Auto) 1.0, Eos # (Auto) 0.2, Baso # (Auto) 0.1, Absolute Nucleated RBC 0.00, Nucleated RBC % 0.0 03/17/20 04:43: Sodium 137, Potassium 3.6, Chloride 103, Carbon Dioxide 25, Anion Gap 9.0, BUN 19, Creatinine 0.6, Estimated GFR (MDRD) 99, Glucose 108 H, Calcium 8.2 L, C-Reactive Protein 5.7 H 03/17/20 04:43: WBC 11.4 H, RBC 3.45 L, Hgb 10.4 L, Hct 33.1 L, MCV 95.9, MCH 30.1, MCHC 31.4 L, RDW 14.2, Plt Count 312, MPV 11.0 H, Neut # (Auto) 8.3 H, Lymph # (Auto) 1.7, [place] # (Auto) 1.0, Eos # (Auto) 0.2, Baso # (Auto) 0.1, Absolute Nucleated RBC 0.00, Nucleated RBC % 0.0 03/16/20 05:06: Sodium 136, Potassium 3.5, Chloride 102, Carbon Dioxide 22, Anion Gap 12.0, BUN 17, Creatinine 0.6, Estimated GFR (MDRD) 99, Glucose 99, Calcium 8.4 L, C-Reactive Protein 7.5 H 03/16/20 05:06: WBC 13.7 H, RBC 3.39 L, Hgb 10.2 L, Hct 32.2 L, MCV 95.0, MCH 30.1, MCHC 31.7 L, RDW 14.2, Plt Count 315, MPV 11.5 H, Neut # (Auto) 10.0 H, Lymph # (Auto) 2.0, [place] # (Auto) 1.3 H, Eos # (Auto) 0.2, Baso # (Auto) 0.1, Absolute Nucleated RBC 0.00, Nucleated RBC % 0.0 03/15/20 04:40: Sodium 135, Potassium 3.5, Chloride 103, Carbon Dioxide 22, Anion Gap 10.0, BUN 25 H, Creatinine 0.6, Estimated GFR (MDRD) 99, Glucose 114 H , Calcium 8.4 L, C-Reactive Protein 10.9 H 03/15/20 04:40: WBC 15.2 H, RBC 3.41 L, Hgb 10.0 L, Hct 31.9 L, MCV 93.5, MCH 29.3, MCHC 31.3 L, RDW 14.2, Plt Count 339, MPV 11.3 H, Neut # (Auto) 11.7 H, Lymph # (Auto) 2.0, [place] # (Auto) 1.3 H, Eos # (Auto) 0.1, Baso # (Auto) 0.0, Absolute Nucleated RBC 0.00, Nucleated RBC % 0.0 03/14/20 20:55: C-Reactive Protein 13.1 H 03/14/20 20:55: Troponin I High Sens 33.9 H* 03/14/20 14:55: Potassium 3.5 03/14/20 14:35: Lactic Acid 1.3 03/14/20 14:35: Troponin I High Sens 41.8 H* 03/14/20 04:25: Phosphorus 2.7, Magnesium 2.0 03/14/20 04:25: Sodium 139, Potassium 2.9 L, Chloride 106, Carbon Dioxide 24, Anion Gap 9.0, BUN 25 H, Creatinine 0.6, Estimated GFR (MDRD) 99, Glucose 125 H, Calcium 8.3 L 03/14/20 04:25: WBC 17.5 H, RBC 3.31 L, Hgb 10.1 L, Hct 31.1 L, MCV 94.0, MCH 30.5, MCHC 32.5, RDW 14.3, Plt Count 334, MPV 11.5 H, Neut # (Auto) Not Reportable, Lymph # (Auto) Not Reportable, [place] # (Auto) Not Reportable, Eos # (Auto) Not Reportable, Baso # (Auto) Not Reportable, Absolute Nucleated RBC Not Reportable, Total Counted 100, Band Neuts % (Manual) 2, Abnorm Lymph % (Manual) 0, Nucleated RBC % Not Reportable, Neutrophils # (Manual) 15.1 H, Lymphocytes # (Manual) 1.4 L, Monocytes # (Manual) 1.1 H, Eosinophils # (Manual) 0.0, Basophils # (Manual) 0.0, Differential Comment MANUAL DIFFERENTIAL, Platelet Estimate NORMAL (130-450,000), RBC Morph Micro Appear NORMAL APPEARANCE 03/14/20 00:15: Troponin I High Sens 29.5 H* 03/13/20 19:30: Troponin I High Sens 26.5 H* 03/13/20 18:58: Lactic Acid 1.2 03/13/20 18:00: B-Natriuretic Peptide 110 H 03/13/20 18:00: TSH 2.05 03/13/20 18:00: Troponin I High Sens 26.9 H* 03/13/20 18:00: Sodium 136, Potassium 2.6 L, Chloride 97 L, Carbon Dioxide 24, Anion Gap 15.0 H, BUN 28 H, Creatinine 0.7, Estimated GFR (MDRD) 83 L, Glucose 120 H, Calcium 9.2, Total Bilirubin 0.9, AST 43 H, ALT 41, Alkaline Phosphatase 128 H, Total Protein 7.5, Albumin 3.2, Globulin 4.3 H, Albumin/Globulin Ratio 0.7 L, Lipase 21 L 03/13/20 18:00: WBC 26.2 H, RBC 4.04 L, Hgb 12.3, Hct 38.1, MCV 94.3, MCH 30.4, MCHC 32.3, RDW 14.1, Plt Count 402, MPV 11.4 H, Neut # (Auto) Not Reportable, Lymph # (Auto) Not Reportable, [place] # (Auto) Not Reportable, Eos # (Auto) Not Reportable, Baso # (Auto) Not Reportable, Absolute Nucleated RBC Not Reportable, Total Counted 100, Band Neuts % (Manual) 3, Abnorm Lymph % (Manual) 0, Nucleated RBC % Not Reportable, Neutrophils # (Manual) 23.3 H, Lymphocytes # (Manual) 0.8 L, Monocytes # (Manual) 2.1 H, Eosinophils # (Manual) 0.0, Basophils # (Manual) 0.0, Differential Comment MANUAL DIFFERENTIAL, Platelet Estimate NORMAL (130- 450,000), Platelet Morphology NORMAL APPEARANCE, RBC Morph Micro Appear NORMAL APPEARANCE Fish Bones: 03/20/20 08:00 03/20/20 08:00 Home Medications and Allergies Home Medications: Ambulatory Orders No Known Home Medications 03/13/20 Active Medications Acetaminophen (Tylenol) 650 mg PO Q4HR PRN PRN Reason: Pain 1 to 4 Last Admin: 03/20/20 09:47 Dose: 650 mg Documented by: Diphenhydramine HCl (Benadryl) 12.5 mg PO QPM PRN PRN Reason: Cramp Enoxaparin Sodium (Lovenox) 40 mg SUBQ DAILY [facility] Last Admin: 03/20/20 08:53 Dose: 40 mg Documented by: Levofloxacin (Levaquin) 750 mg PO DAILY [facility] Last Admin: 03/20/20 08:54 Dose: 750 mg Documented by: Magnesium Oxide (Mag Ox) 400 mg PO 1700 [facility] Last Admin: 03/19/20 18:11 Dose: 400 mg Documented by: Mineral Oil (Cavilon) 1 applic TOP PRN PRN PRN Reason: Skin Care Last Admin: 03/14/20 20:40 Dose: 1 applic Documented by: Multi-Ingredient Ointment (Zinc Oxide) 1 applic TOP PRN PRN PRN Reason: Skin Care Last Admin: 03/15/20 14:21 Dose: 1 applic Documented by: Multivitamins/Minerals (Theragran M) 1 tab PO 1700 [facility] Last Admin: 03/19/20 18:11 Dose: 1 tab Documented by: Nystatin (Nystop) 1 applic TOP BID [facility] Last Admin: 03/20/20 08:56 Dose: 1 applic Documented by: Ondansetron HCl (Zofran Odt) 4 mg TL Q6HR PRN PRN Reason: Nausea / Vomiting Oxycodone HCl (Roxicodone) 5 mg PO Q4HR PRN PRN Reason: Pain 5 to 7 Polyethylene Glycol (Miralax) 17 gm PO DAILY [facility] Last Admin: 03/20/20 09:02 Dose: 17 gm Documented by: Pyridoxine HCl (Vitamin B-6) 100 mg PO BID [facility] Last Admin: 03/20/20 08:54 Dose: 100 mg Documented by: Saccharomyces Boulardii (Florastor) 250 mg PO BIDWM [facility] Last Admin: 03/20/20 08:54 Dose: 250 mg Documented by: Sodium Chloride (Normal Saline Flush 0.9%) 10 ml IVP PRN PRN PRN Reason: NEEDED PER PROVIDER ORDERS Last Admin: 03/14/20 09:26 Dose: 10 ml Documented by: Sodium Chloride (Normal Saline Flush 0.9%) 10 ml IVP 0100,0900,1700 [facility] Last Admin: 03/20/20 08:57 Dose: Not Given Documented by: No Known Home Medications 03/13/20 Allergies/Adverse Reactions: Allergies Allergy/AdvReac Type Severity Reaction Status Date / Time No Known Drug Allergies Allergy Verified 03/13/20 17:38 Anes History & Medical History - Anesthetic History Anesthesia Complications: reports: No previous complications Family history of Anesthesia Complications: Denies Family history of Malignant Hyperthermia: Denies - Medical History Cardiovascular: reports: Congestive heart failure, Other (cor [place]) Pulmonary: reports: None Gastrointestinal: reports: None Urinary: reports: None Neuro: reports: None Musculoskeletal: reports: None Endocrine/Autoimmune: reports: None Blood Disorders: reports: None Skin: reports: None Smoking Status: Never smoker Psychosocial: reports: Depression Other Past Medical History: Morbidly obese; multiple leg wounds and overall poor skin condition. Humeral neck fx (01/2007). - Surgical History Gynecologic: Other ([place] for child ) Results - Echo Results Echo Results: Report reviewed Exam General: Alert, Oriented x3, Cooperative, No acute distress Dental: Poor dentition Mouth Openin Fingerbreadth Neck Mobility: Normal Mallampati classification: II Thyromental Distance: 4-6 cm Mental/Cognitive Status: Alert/Oriented X3, Normal for patient Plan Anesthesia Type: General Consent for Procedure(s) Verified and Reviewed: Yes Code Status: Attempt Resuscitation ASA classification: 3-Severe systemic disease Is this case an emergency?: No
--- NOTE | 2020-03-20 14:52 | PROVIDER PROGRESS NOTE ---
Assessment/Plan - Problem List (1) Cellulitis of both lower extremities Assessment/Plan: improved. erythema and swelling was reduced. WBC is normal, CRP continue trended down. Blood culture is negative. continue antibiotics Levaquin (2) Decubitus ulcer general surgeon will have I/D for pt's bilateral heel wound ulcer, will followup, continue pain control, continue antibiotics, continue PT/OT (3) Leg cramps Assessment/Plan: stable, pt did not complain now. Correct electrolyte or magnesium abnormalities (4) Morbid obesity with BMI of 45.0-49.9, adult Assessment/Plan: advise pt loss weight (5) Cor pulmonale Assessment/Plan: pt has This new diagnosis echo done this admission shown elevated RVSP 60 mmHG. Because of her obesity, suspect obesity-hypoventilation syndrome. Overnight oximetry test was done for this reason. She failed her overnight oximetry, she need an oxygen order due to nocturnal desaturations when pt on d/c (6) Venous stasis dermatitis of both lower extremities Assessment/Plan: improved. erythema and swelling are reduced. it was likely related to prolonged leg edema from her cor pulmonale from her immobility from her morbid obesity. (7) Generalized weakness Assessment/Plan: order pt out of bed to chair, continue PT/OT. pt was recommended to SNF, consult with SW for disposition (8) Self neglect Assessment/Plan: As the HPI, consult with manager social services to help pt. (9) Poor hygiene Assessment/Plan: There was no running water in her residence, consult with manager social services to help pt (10) Hypokalemia Assessment/Plan: Resolved. (11) Prerenal azotemia Assessment/Plan: Resolved with IV replacement - Current Meds Current Meds: Current Medications Generic Name Dose Route Start Last Admin Trade Name Freq PRN Reason Stop Dose Admin Acetaminophen 650 mg 03/13/20 20:02 03/20/20 09:47 Tylenol PO 650 mg Q4HR PRN Administration Pain 1 to 4 Enoxaparin Sodium 40 mg 03/14/20 09:00 03/20/20 08:53 Lovenox SUBQ 40 mg DAILY [facility] Administration Levofloxacin 750 mg 03/18/20 09:00 03/20/20 08:54 Levaquin PO 750 mg DAILY [facility] Administration Magnesium Oxide 400 mg 03/18/20 17:00 11/02/20 18:11 Mag Ox PO 400 mg 1700 [facility] Administration Mineral Oil 1 applic 03/14/20 09:42 03/14/20 20:40 Cavilon TOP 1 applic PRN PRN Administration Skin Care Multi-Ingredient Ointment 1 applic 03/14/20 09:42 03/15/20 14:21 Zinc Oxide TOP 1 applic PRN PRN Administration Skin Care Multivitamins/Minerals 1 tab 03/18/20 17:00 03/19/20 18:11 Theragran M PO 1 tab 1700 [facility] Administration Nystatin 1 applic 03/13/20 23:00 03/20/20 08:56 Nystop TOP 1 applic BID [facility] Administration Polyethylene Glycol 17 gm 03/19/20 11:00 03/20/20 09:02 Miralax PO 17 gm DAILY [facility] Administration Pyridoxine HCl 100 mg 03/13/20 23:00 03/20/20 08:54 Vitamin B-6 PO 100 mg BID [facility] Administration Saccharomyces Boulardii 250 mg 03/14/20 17:00 03/20/20 08:54 Florastor PO 250 mg BIDWM [facility] Administration Sodium Chloride 10 ml 03/13/20 20:02 03/14/20 09:26 Normal Saline Flush 0.9% IVP 10 ml PRN PRN Administration NEEDED PER PROVIDER ORDERS Sodium Chloride 10 ml 03/14/20 01:00 03/20/20 08:57 Normal Saline Flush 0.9% IVP Not Given 0100,0900,1700 [facility] - Lab Result Fish Bone Diagrams: 03/20/20 08:00 03/20/20 08:00 - Additional Planning My Orders: My Active Orders 03/21/20 05:00 BMP - BASIC METABOLIC PANEL [CHEM] [facility] CBC - COMP BLD CT W/AUTO DIFF [HEME] [facility] 03/22/20 05:00 BMP - BASIC METABOLIC PANEL [CHEM] [facility]LAB CBC - COMP BLD CT W/AUTO DIFF [HEME] [facility] 03/23/20 05:00 BMP - BASIC METABOLIC PANEL [CHEM] [facility]LAB CBC - COMP BLD CT W/AUTO DIFF [HEME] [facility] 03/24/20 05:00 BMP - BASIC METABOLIC PANEL [CHEM] [facility] CBC - COMP BLD CT W/AUTO DIFF [HEME] [facility] 03/25/20 05:00 BMP - BASIC METABOLIC PANEL [CHEM] [facility] CBC - COMP BLD CT W/AUTO DIFF [HEME] [facility] Subjective - Subjective Patient Reports: Feeling Better Objective Vital Signs: Vital Signs - 24 hr 03/19/20 03/19/20 03/20/20 15:57 20:00 00:00 Temperature 36.8 C 36.8 C 37.2 C Heart Rate [ Brachial] Heart Rate [ 91 99 93 Monitoring electrodes] Respiratory 20 18 15 Rate Blood Pressure [Left Brachial artery] Blood Pressure 131/79 H 119/61 [Right Brachial artery] Blood Pressure 112/58 L [Right Radial artery] O2 Saturation 97 96 96 03/20/20 03/20/20 03/20/20 04:00 08:00 12:00 Temperature 37.2 C 36.8 C 36.8 C Heart Rate [ 88 Brachial] Heart Rate [ 88 92 Monitoring electrodes] Respiratory 18 16 Rate Blood Pressure 114/62 [Left Brachial artery] Blood Pressure 119/60 119/50 L [Right Brachial artery] Blood Pressure [Right Radial artery] O2 Saturation 96 94 96 Oxygen O2 Source Room air I&O (Last 24 Hrs): Intake and Output Totals x24h 03/18/20 03/19/20 03/20/20 23:59 23:59 23:59 Intake Total 1035 480 Output Total 2400 1700 Balance -1365 -1220 General: Alert, Oriented x3, No acute distress HEENT: Atraumatic Neck: Supple Lymphatic: no adenopathy Neuro: Alert, Non Focal, Oriented Times 3 Cardiovascular: Regular rate, Normal S1, Normal S2 Respiratory: Chest non-tender, No respiratory distress Abdomen: Normal bowel sounds, Soft Extremities: Normal pulses - Results Results: Laboratory Results WBC 7.4 x10^3/uL (4.8-10.8) 03/20/20 08:00 RBC 3.41 10^6/uL (4.20-5.40) L 03/20/20 08:00 Hgb 10.3 g/dL (12.0-16.0) L 03/20/20 08:00 Hct 32.6 % (37.0-47.0) L 03/20/20 08:00 MCV 95.6 fL (81.0-99.0) 03/20/20 08:00 MCH 30.2 pg (27.0-31.0) 03/20/20 08:00 MCHC 31.6 g/dL (32.0-36.0) L 03/20/20 08:00 RDW 14.6 % (12.0-15.0) 03/20/20 08:00 Plt Count 301 10^3/uL (130-450) 03/20/20 08:00 MPV 10.1 fL (7.9-10.8) 03/20/20 08:00 Neut # (Auto) 5.3 10^3/uL (1.5-6.6) 03/20/20 08:00 Lymph # (Auto) 1.0 10^3/uL (1.5-3.5) L 03/20/20 08:00 [place] # (Auto) 0.8 10^3/uL (0.0-1.0) 03/20/20 08:00 Eos # (Auto) 0.2 10^3/uL (0.0-0.7) 03/20/20 08:00 Baso # (Auto) 0.1 10^3/uL (0.0-0.1) 03/20/20 08:00 Absolute Nucleated RBC 0.00 x10^3/uL 03/20/20 08:00 Total Counted 100 03/14/20 04:25 Band Neuts % (Manual) 2 % (0-10) 03/14/20 04:25 Abnorm Lymph % (Manual) 0 % 03/14/20 04:25 Nucleated RBC % 0.0 /100WBC 03/20/20 08:00 Neutrophils # (Manual) 15.1 10^3/uL (1.5-6.6) H 03/14/20 04:25 Lymphocytes # (Manual) 1.4 10^3/uL (1.5-3.5) L 03/14/20 04:25 Monocytes # (Manual) 1.1 10^3/uL (0.0-1.0) H 03/14/20 04:25 Eosinophils # (Manual) 0.0 10^3/uL (0-0.7) 03/14/20 04:25 Basophils # (Manual) 0.0 10^3/uL (0-0.1) 03/14/20 04:25 Differential Comment MANUAL DIFFERENTIAL 03/14/20 04:25 Platelet Estimate NORMAL (130-450,000) (NORMAL) 03/14/20 04:25 Platelet Morphology NORMAL APPEARANCE (NORMAL) 03/13/20 18:00 RBC Morph Micro Appear NORMAL APPEARANCE (NORMAL) 03/14/20 04:25 Sodium 136 mmol/L (135-145) 03/20/20 08:00 Potassium 3.4 mmol/L (3.5-5.0) L 03/20/20 08:00 Chloride 102 mmol/L (101-111) 03/20/20 08:00 Carbon Dioxide 25 mmol/L (21-32) 03/20/20 08:00 Anion Gap 9.0 (6-13) 03/20/20 08:00 BUN 19 mg/dL (6-20) 03/20/20 08:00 Creatinine 0.5 mg/dL (0.4-1.0) 03/20/20 08:00 Estimated GFR (MDRD) 123 (>89) 03/20/20 08:00 Glucose 109 mg/dL (70-100) H 03/20/20 08:00 Lactic Acid 1.3 mmol/L (0.5-2.2) 03/14/20 14:35 Calcium 8.2 mg/dL (8.5-10.3) L 03/20/20 08:00 Phosphorus 2.7 mg/dL (2.5-4.6) 03/14/20 04:25 Magnesium 2.0 mg/dL (1.7-2.8) 03/14/20 04:25 Total Bilirubin 0.9 mg/dL (0.2-1.0) 03/13/20 18:00 AST 43 IU/L (10-42) H 03/13/20 18:00 ALT 41 IU/L (10-60) 03/13/20 18:00 Alkaline Phosphatase 128 IU/L (42-121) H 03/13/20 18:00 Troponin I High Sens 33.9 ng/L (2.3-14.8) H* 03/14/20 20:55 C-Reactive Protein 1.8 mg/dL (0-1.0) H 03/20/20 08:00 B-Natriuretic Peptide 110 pg/mL (5-100) H 03/13/20 18:00 Total Protein 7.5 g/dL (6.7-8.2) 03/13/20 18:00 Albumin 3.2 g/dL (3.2-5.5) 03/13/20 18:00 Globulin 4.3 g/dL (2.1-4.2) H 03/13/20 18:00 Albumin/Globulin Ratio 0.7 (1.0-2.2) L 03/13/20 18:00 Lipase 21 U/L (22-51) L 03/13/20 18:00 TSH 2.05 uIU/mL (0.34-5.60) 03/13/20 18:00 Urine Color YELLOW 03/13/20 19:35 Urine Clarity CLEAR (CLEAR) 03/13/20 19:35 Urine pH 6.0 PH (5.0-7.5) 03/13/20 19:35 Ur Specific [place] 1.025 (1.002-1.030) 03/13/20 19:35 Urine Protein 30 mg/dL (NEGATIVE) H 03/13/20 19:35 Urine Glucose (UA) NEGATIVE mg/dL (NEGATIVE) 03/13/20 19:35 Urine Ketones TRACE mg/dL (NEGATIVE) 03/13/20 19:35 Urine Occult Blood NEGATIVE (NEGATIVE) 03/13/20 19:35 Urine Nitrite NEGATIVE (NEGATIVE) 03/13/20 19:35 Urine Bilirubin NEGATIVE (NEGATIVE) 03/13/20 19:35 Urine Urobilinogen 1 (NORMAL) E.U./dL (NORMAL) 03/13/20 19:35 Ur Leukocyte Esterase NEGATIVE (NEGATIVE) 03/13/20 19:35 Urine RBC None Seen /HPF (0-5) 03/13/20 19:35 Urine WBC 0-3 /HPF (0-5) 03/13/20 19:35 Ur Squamous Epith Cells RARE Squamous (<= Few) 03/13/20 19:35 Urine Bacteria None Seen /HPF (None Seen) 03/13/20 19:35 Urine Casts 3-5 Hyaline Casts /LPF 03/13/20 19:35 Ur Microscopic Review INDICATED 03/13/20 19:35 Urine Culture Comments NOT INDICATED 03/13/20 19:35 ABX Reporting Has patient been on IV antibiotics over the past 48 hours?: Yes Current Medications - Current Medications Current Medications: Active Medications Acetaminophen (Tylenol) 650 mg PO Q4HR PRN PRN Reason: Pain 1 to 4 Last Admin: 03/20/20 09:47 Dose: 650 mg Documented by: Diphenhydramine HCl (Benadryl) 12.5 mg PO QPM PRN PRN Reason: Cramp Enoxaparin Sodium (Lovenox) 40 mg SUBQ DAILY [facility] Last Admin: 03/20/20 08:53 Dose: 40 mg Documented by: Levofloxacin (Levaquin) 750 mg PO DAILY [facility] Last Admin: 03/20/20 08:54 Dose: 750 mg Documented by: Magnesium Oxide (Mag Ox) 400 mg PO 1700 [facility] Last Admin: 03/19/20 18:11 Dose: 400 mg Documented by: Mineral Oil (Cavilon) 1 applic TOP PRN PRN PRN Reason: Skin Care Last Admin: 03/14/20 20:40 Dose: 1 applic Documented by: Multi-Ingredient Ointment (Zinc Oxide) 1 applic TOP PRN PRN PRN Reason: Skin Care Last Admin: 03/15/20 14:21 Dose: 1 applic Documented by: Multivitamins/Minerals (Theragran M) 1 tab PO 1700 [facility] Last Admin: 03/19/20 18:11 Dose: 1 tab Documented by: Nystatin (Nystop) 1 applic TOP BID [facility] Last Admin: 03/20/20 08:56 Dose: 1 applic Documented by: Ondansetron HCl (Zofran Odt) 4 mg TL Q6HR PRN PRN Reason: Nausea / Vomiting Oxycodone HCl (Roxicodone) 5 mg PO Q4HR PRN PRN Reason: Pain 5 to 7 Polyethylene Glycol (Miralax) 17 gm PO DAILY [facility] Last Admin: 03/20/20 09:02 Dose: 17 gm Documented by: Pyridoxine HCl (Vitamin B-6) 100 mg PO BID [facility] Last Admin: 03/20/20 08:54 Dose: 100 mg Documented by: Saccharomyces Boulardii (Florastor) 250 mg PO BIDWM [facility] Last Admin: 03/20/20 08:54 Dose: 250 mg Documented by: Sodium Chloride (Normal Saline Flush 0.9%) 10 ml IVP PRN PRN PRN Reason: NEEDED PER PROVIDER ORDERS Last Admin: 03/14/20 09:26 Dose: 10 ml Documented by: Sodium Chloride (Normal Saline Flush 0.9%) 10 ml IVP 0100,0900,1700 [facility] Last Admin: 03/20/20 08:57 Dose: Not Given Documented by: No Known Home Medications 03/13/20
[2020-03-20] MEDS ORDERED: SODIUM CHLORIDE 0.9% 10 ML ONE (16:36)
[2020-03-20] MEDS ORDERED: ACETAMINOPHEN 1,000 MG/100 ML 100 ML IV ONE (16:59)
[2020-03-20] MEDS ORDERED: ONDANSETRON 4 MG/2 ML VIAL IVP PRN (16:59)
[2020-03-20] MEDS ORDERED: METOCLOPRAMIDE 10 MG/2 ML VIAL IVP PRN (16:59)
[2020-03-20] MEDS ORDERED: NALOXONE 0.4 MG/ML VIAL IVP PRN (16:59)
[2020-03-20] MEDS ORDERED: ATROPINE ABBOJECT 1 MG/10 ML SYRINGE IVP PRN (16:59)
[2020-03-20] MEDS ORDERED: HYDROmorphone 0.5 MG/0.5 ML SYRINGE IVP PRN (16:59)
[2020-03-20] MEDS ORDERED: ePHEDrine 50 MG/ML VIAL IVP PRN (16:59)
[2020-03-20] MEDS ORDERED: fentaNYL 100 MCG/2 ML VIAL IVP PRN (16:59)
[2020-03-20] MEDS ORDERED: LACTATED RINGERS 1,000 ML IV SCH (17:00)
[2020-03-20] MEDS ORDERED: LACTATED RINGERS 1,000 ML IV ONE (17:05)
[2020-03-20] MEDS: MAGNESIUM OXIDE 400 MG TABLET PO SCH (18:11)
[2020-03-20] MEDS: MULTIVITAMIN W/MINERALS TABLET PO SCH (18:49)
--- NOTE | 2020-03-20 19:43 | OPERATIVE REPORT ---
Operative Report - General Admit Date: 03/13/20 Procedure Date: 03/20/20 Planned Procedure: Sharp debridement of bilateral heel ulcers Pre-Op Diagnosis: Bilateral decubitus heel ulcers Procedure Performed: Sharp debridement of bilateral heel ulcers Post Op Diagnosis: Bilateral decubitus heel ulcers - Procedure Note Primary Surgeon: Yoli Anesthesia Technique: General LMA Pathology: None Estimated Blood Loss (mL): 10 Findings: Full thickness eschar of bilateral heels. 31/2 cm on the right side and 3 cm on the left Complications: None apparent - Other Other Information/Narrative: After obtaining informed consent, the patient was taken to the operating room and placed in supine position. Following successful induction of general anesthesia, appropriate padding of all bony prominences and placement of appropriate monitors, the heels were prepped and draped in the standard surgical fashion. A Time Out was held per [facility] protocol. All elements of the surgical safety check list were followed before, during, and after the procedure. We began by addressing the left heel. There is full thickness loss of tissue over a 3 cm area of the posterior left heel. The base is noted to be approximately 50% granulation and the remainder sloughing tissue. A curette was used to debride the area of slough back to bleeding tissue. The base was noted to be vascularized as well as the skin edges. We turned our attention to the right heel. We noted a 3.5 cm full thickness eschar with purulent an foul smelling tissue and fluid beneath the eschar. The entire eschar is removed sharpy revealing pale subcutanous tissue with minimal blood flow. The edges of the wound were well vascularized with copious bleeding from the skin edges. A curette was using to debride deeper areas of brothers and devitalized tissue. Both heels were irrigated with saline and checked for hemostasis. They were dressed with adaptic and xeroform gauze and wrapped with an kevan wrap. All sponge, needle, and instrument counts were correct at the conclusion of the case. The patient was allowed to waken from anesthesia without difficulty and taken to the post anesthesia care unit in good condition.
--- NOTE | 2020-03-20 20:19 | OPERATIVE REPORT ---
Operative Report - General Admit Date: 03/13/20 Procedure Date: 03/20/20 Planned Procedure: Debridement of bilateral heel ulcers Pre-Op Diagnosis: Pressure ulcers of bilateral heels Procedure Performed: Sharp debridement of bilateral heel ulcers
[2020-03-21] MEDS: NYSTATIN POWDER 15 GM TOP SCH ×3 (01:01→20:43)
[2020-03-21] MEDS: SODIUM CHLORIDE FLUSH 0.9% 10 ML SYRINGE IVP SCH ×4 (01:01→23:38)
[2020-03-21 05:23] LABS: BASOPHILS % (AUTO) 0.3 %; EOSINOPHILS % (AUTO) 0.1 %; HGB - HEMOGLOBIN 10.5 g/dL (12.0-16.0); LYMPHOCYTES # (AUTO) 0.9 10^3/uL (1.5-3.5); LYMPHOCYTES % (AUTO) 9.6 %; MEAN CORPUSCULAR HEMOGLOBIN 30.2 pg (27.0-31.0); MEAN CORPUSCULAR HGB CONC 31.2 g/dL (32.0-36.0); MEAN CORPUSCULAR VOLUME 96.8 fL (81.0-99.0); MEAN PLATELET VOLUME 11.2 fL (7.9-10.8); MONOCYTES # (AUTO) 0.6 10^3/uL (0.0-1.0); MONOCYTES % (AUTO) 6.9 %; NEUTROPHILS # (AUTO) 7.7 10^3/uL (1.5-6.6); NEUTROPHILS % (AUTO) 82.2 %; PLT - PLATELET COUNT 265 10^3/uL (130-450); RED BLOOD COUNT 3.48 10^6/uL (4.20-5.40); RED CELL DISTRIBUTION WIDTH 14.7 % (12.0-15.0); WHITE BLOOD COUNT 9.3 x10^3/uL (4.8-10.8)
[2020-03-21 05:30] LABS: CALCIUM 8.1 mg/dL (8.5-10.3); CREATININE 0.6 mg/dL (0.4-1.0)
[2020-03-21] MEDS: SACCHAROMYCES BOULARDII 250 MG CAPSULE PO SCH ×2 (08:23→17:06)
[2020-03-21] MEDS: levoFLOXacin 250 MG TABLET PO SCH (08:28)
[2020-03-21] MEDS: PYRIDOXINE 100 MG TABLET PO SCH ×2 (08:30→20:43)
[2020-03-21] MEDS: ENOXAPARIN 40 MG/0.4 ML SYRINGE SUBQ SCH (08:31)
[2020-03-21] MEDS: polyethylene glycoL 3350 17 GM PACKET PO SCH (08:42)
[2020-03-21] MEDS: SENNA 8.6 MG TABLET PO SCH (08:44)
[2020-03-21] MEDS: DOCUSATE SODIUM 250 MG CAPSULE PO SCH (08:45)
--- NOTE | 2020-03-21 14:25 | PROVIDER PROGRESS NOTE ---
Assessment/Plan - Problem List (1) Cellulitis of both lower extremities Assessment/Plan: 03/21 great improved. no swelling, and erythema significantly reduced, normal temperature, has intact distal neurovasclar examination pt is pending for replacement by SW improved. erythema and swelling was reduced. WBC is normal, CRP continue trended down. Blood culture is negative. continue antibiotics Levaquin (2) Decubitus ulcer 03/21 pt had I/D on yesterday, followup with surgeon for ambulation and dressing instruction, continue antibiotics. general surgeon will have I/D for pt's bilateral heel wound ulcer, will followup, continue pain control, continue antibiotics, continue PT/OT (3) Leg cramps Assessment/Plan: stable, pt did not complain now. Correct electrolyte or magnesium abnormalities (4) Morbid obesity with BMI of 45.0-49.9, adult Assessment/Plan: advise pt loss weight (5) Cor pulmonale Assessment/Plan: 03/21 stable, order night O2 supplement for pt. pt has This new diagnosis echo done this admission shown elevated RVSP 60 mmHG. Because of her obesity, suspect obesity-hypoventilation syndrome. Overnight oximetry test was done for this reason. She failed her overnight oximetry, she need an oxygen order due to nocturnal desaturations when pt on d/c (6) Venous stasis dermatitis of both lower extremities Assessment/Plan: 03/21 great improvement, no swelling, and erythema significantly reduced improved. erythema and swelling are reduced. it was likely related to prolonged leg edema from her cor pulmonale from her immobility from her morbid obesity. (7) Generalized weakness Assessment/Plan: order pt out of bed to chair, continue PT/OT. pt was recommended to SNF, consult with SW for disposition (8) Self neglect Assessment/Plan: As the HPI, consult with social economist to help pt. (9) Poor hygiene Assessment/Plan: There was no running water in her residence, consult with social economist to help pt (10) Hypokalemia Assessment/Plan: Resolved. (11) Prerenal azotemia Assessment/Plan: Resolved with IV replacement - Current Meds Current Meds: Current Medications Generic Name Dose Route Start Last Admin Trade Name Freq PRN Reason Stop Dose Admin Acetaminophen 650 mg 03/13/20 20:02 03/20/20 18:49 Tylenol PO 650 mg Q4HR PRN Administration Pain 1 to 4 Docusate Sodium 250 - 500 mg 03/21/20 09:00 03/21/20 08:45 Colace 250mg Capsule PO 250 mg DAILY [facility] Administration Enoxaparin Sodium 40 mg 03/14/20 09:00 03/21/20 08:31 Lovenox SUBQ 40 mg DAILY [facility] Administration Levofloxacin 750 mg 03/18/20 09:00 03/21/20 08:28 Levaquin PO 750 mg DAILY [facility] Administration Magnesium Oxide 400 mg 03/18/20 17:00 03/20/20 18:11 Mag Ox PO 400 mg 1700 [facility] Administration Mineral Oil 1 applic 03/14/20 09:42 03/14/20 20:40 Cavilon TOP 1 applic PRN PRN Administration Skin Care Multi-Ingredient Ointment 1 applic 03/14/20 09:42 03/15/20 14:21 Zinc Oxide TOP 1 applic PRN PRN Administration Skin Care Multivitamins/Minerals 1 tab 03/18/20 17:00 03/20/20 18:49 Theragran M PO 1 tab 1700 [facility] Administration Nystatin 1 applic 03/13/20 23:00 03/21/20 08:47 Nystop TOP 1 applic BID [facility] Administration Polyethylene Glycol 17 gm 03/19/20 11:00 03/21/20 08:42 Miralax PO 17 gm DAILY [facility] Administration Pyridoxine HCl 100 mg 03/13/20 23:00 03/21/20 08:30 Vitamin B-6 PO 100 mg BID [facility] Administration Saccharomyces Boulardii 250 mg 03/14/20 17:00 03/21/20 08:23 Florastor PO 250 mg BIDWM [facility] Administration Senna 8.6 - 17.2 mg 03/21/20 09:00 03/21/20 08:44 Senokot PO 8.6 mg DAILY [facility] Administration Sodium Chloride 10 ml 03/13/20 20:02 03/14/20 09:26 Normal Saline Flush 0.9% IVP 10 ml PRN PRN Administration NEEDED PER PROVIDER ORDERS Sodium Chloride 10 ml 03/14/20 01:00 03/21/20 08:29 Normal Saline Flush 0.9% IVP 10 ml 0100,0900,1700 [facility] Administration - Lab Result Fish Bone Diagrams: 03/21/20 04:36 03/21/20 04:36 - Additional Planning My Orders: My Active Orders 03/20/20 Dinner Regular Diet [DIET] 03/21/20 09:00 Docusate Sodium 250Mg Capsule [Colace 250Mg Capsule] 250 - 500 mg PO DAILY Senna [Senokot] 8.6 - 17.2 mg PO DAILY 03/22/20 05:00 BMP - BASIC METABOLIC PANEL [CHEM] DAILYLAB CBC - COMP BLD CT W/AUTO DIFF [HEME] DAILYLAB CRP - C-REACTIVE PROTEIN [CHEM] DAILYLAB 03/23/20 05:00 BMP - BASIC METABOLIC PANEL [CHEM] DAILYLAB CBC - COMP BLD CT W/AUTO DIFF [HEME] DAILYLAB CRP - C-REACTIVE PROTEIN [CHEM] DAILYLAB 03/24/20 05:00 BMP - BASIC METABOLIC PANEL [CHEM] DAILYLAB CBC - COMP BLD CT W/AUTO DIFF [HEME] DAILYLAB CRP - C-REACTIVE PROTEIN [CHEM] DAILYLAB 03/25/20 05:00 BMP - BASIC METABOLIC PANEL [CHEM] DAILYLAB CBC - COMP BLD CT W/AUTO DIFF [HEME] DAILYLAB CRP - C-REACTIVE PROTEIN [CHEM] DAILYLAB 03/26/20 05:00 CRP - C-REACTIVE PROTEIN [CHEM] DAILYLAB Subjective - Subjective Patient Reports: Feeling Better Nursing Reports: No Complaints Objective Vital Signs: Vital Signs - 24 hr 03/20/20 03/20/20 03/20/20 16:00 17:05 17:10 Temperature 37.1 C 36.3 C L Heart Rate 84 90 Heart Rate [ 84 Brachial] Heart Rate [ Monitoring electrodes] Respiratory 18 12 16 Rate Blood Pressure 105/63 116/64 Blood Pressure 109/52 L [Right Brachial artery] O2 Saturation 96 92 97 03/20/20 03/20/20 03/20/20 17:20 17:30 17:45 Temperature 36.3 C L 36.5 C 37 C Heart Rate 84 85 Heart Rate [ 90 Brachial] Heart Rate [ Monitoring electrodes] Respiratory 13 13 18 Rate Blood Pressure 115/54 L 110/56 L Blood Pressure 121/30 L [Right Brachial artery] O2 Saturation 98 98 95 03/21/20 03/21/20 00:02 07:58 Temperature 37.1 C 36.7 C Heart Rate Heart Rate [ 70 Brachial] Heart Rate [ 76 Monitoring electrodes] Respiratory 20 21 Rate Blood Pressure Blood Pressure 116/73 127/78 [Right Brachial artery] O2 Saturation 95 95 Oxygen O2 Source Room air I&O (Last 24 Hrs): Intake and Output Totals x24h 03/19/20 03/20/20 03/21/20 23:59 23:59 23:59 Intake Total 1035 930 240 Output Total 2400 3500 900 Balance -9387 -3560 -660 General: Alert, Oriented x3, No acute distress HEENT: Atraumatic Neck: Supple Lymphatic: no adenopathy Neuro: Alert, Non Focal, Oriented Times 3 Cardiovascular: Regular rate, Normal S1, Normal S2 Respiratory: Chest non-tender, No respiratory distress Abdomen: Normal bowel sounds, Soft Extremities: Normal pulses - Results Results: Laboratory Results WBC 9.3 x10^3/uL (4.8-10.8) 03/21/20 04:36 RBC 3.48 10^6/uL (4.20-5.40) L 03/21/20 04:36 Hgb 10.5 g/dL (12.0-16.0) L 03/21/20 04:36 Hct 33.7 % (37.0-47.0) L 03/21/20 04:36 MCV 96.8 fL (81.0-99.0) 03/21/20 04:36 MCH 30.2 pg (27.0-31.0) 03/21/20 04:36 MCHC 31.2 g/dL (32.0-36.0) L 03/21/20 04:36 RDW 14.7 % (12.0-15.0) 03/21/20 04:36 Plt Count 265 10^3/uL (130-450) 03/21/20 04:36 MPV 11.2 fL (7.9-10.8) H 03/21/20 04:36 Neut # (Auto) 7.7 10^3/uL (1.5-6.6) H 03/21/20 04:36 Lymph # (Auto) 0.9 10^3/uL (1.5-3.5) L 03/21/20 04:36 [place] # (Auto) 0.6 10^3/uL (0.0-1.0) 03/21/20 04:36 Eos # (Auto) 0.0 10^3/uL (0.0-0.7) 03/21/20 04:36 Baso # (Auto) 0.0 10^3/uL (0.0-0.1) 03/21/20 04:36 Absolute Nucleated RBC 0.00 x10^3/uL 03/21/20 04:36 Total Counted 100 03/14/20 04:25 Band Neuts % (Manual) 2 % (0-10) 03/14/20 04:25 Abnorm Lymph % (Manual) 0 % 03/14/20 04:25 Nucleated RBC % 0.0 /100WBC 03/21/20 04:36 Neutrophils # (Manual) 15.1 10^3/uL (1.5-6.6) H 03/14/20 04:25 Lymphocytes # (Manual) 1.4 10^3/uL (1.5-3.5) L 03/14/20 04:25 Monocytes # (Manual) 1.1 10^3/uL (0.0-1.0) H 03/14/20 04:25 Eosinophils # (Manual) 0.0 10^3/uL (0-0.7) 03/14/20 04:25 Basophils # (Manual) 0.0 10^3/uL (0-0.1) 03/14/20 04:25 Differential Comment MANUAL DIFFERENTIAL 03/14/20 04:25 Platelet Estimate NORMAL (130-450,000) (NORMAL) 03/14/20 04:25 Platelet Morphology NORMAL APPEARANCE (NORMAL) 03/13/20 18:00 RBC Morph Micro Appear NORMAL APPEARANCE (NORMAL) 03/14/20 04:25 Sodium 138 mmol/L (135-145) 03/21/20 04:36 Potassium 4.0 mmol/L (3.5-5.0) 03/21/20 04:36 Chloride 104 mmol/L (101-111) 03/21/20 04:36 Carbon Dioxide 26 mmol/L (21-32) 03/21/20 04:36 Anion Gap 8.0 (6-13) 03/21/20 04:36 BUN 14 mg/dL (6-20) 03/21/20 04:36 Creatinine 0.6 mg/dL (0.4-1.0) 03/21/20 04:36 Estimated GFR (MDRD) 99 (>89) 03/21/20 04:36 Glucose 125 mg/dL (70-100) H 03/21/20 04:36 Lactic Acid 1.3 mmol/L (0.5-2.2) 03/14/20 14:35 Calcium 8.1 mg/dL (8.5-10.3) L 03/21/20 04:36 Phosphorus 2.7 mg/dL (2.5-4.6) 03/14/20 04:25 Magnesium 2.0 mg/dL (1.7-2.8) 03/14/20 04:25 Total Bilirubin 0.9 mg/dL (0.2-1.0) 03/13/20 18:00 AST 43 IU/L (10-42) H 03/13/20 18:00 ALT 41 IU/L (10-60) 03/13/20 18:00 Alkaline Phosphatase 128 IU/L (42-121) H 03/13/20 18:00 Troponin I High Sens 33.9 ng/L (2.3-14.8) H* 03/14/20 20:55 C-Reactive Protein 1.3 mg/dL (0-1.0) H 03/21/20 04:36 B-Natriuretic Peptide 110 pg/mL (5-100) H 03/13/20 18:00 Total Protein 7.5 g/dL (6.7-8.2) 03/13/20 18:00 Albumin 3.2 g/dL (3.2-5.5) 03/13/20 18:00 Globulin 4.3 g/dL (2.1-4.2) H 03/13/20 18:00 Albumin/Globulin Ratio 0.7 (1.0-2.2) L 03/13/20 18:00 Lipase 21 U/L (22-51) L 03/13/20 18:00 TSH 2.05 uIU/mL (0.34-5.60) 03/13/20 18:00 Urine Color YELLOW 03/13/20 19:35 Urine Clarity CLEAR (CLEAR) 03/13/20 19:35 Urine pH 6.0 PH (5.0-7.5) 03/13/20 19:35 Ur Specific [place] 1.025 (1.002-1.030) 03/13/20 19:35 Urine Protein 30 mg/dL (NEGATIVE) H 03/13/20 19:35 Urine Glucose (UA) NEGATIVE mg/dL (NEGATIVE) 03/13/20 19:35 Urine Ketones TRACE mg/dL (NEGATIVE) 03/13/20 19:35 Urine Occult Blood NEGATIVE (NEGATIVE) 03/13/20 19:35 Urine Nitrite NEGATIVE (NEGATIVE) 03/13/20 19:35 Urine Bilirubin NEGATIVE (NEGATIVE) 03/13/20 19:35 Urine Urobilinogen 1 (NORMAL) E.U./dL (NORMAL) 03/13/20 19:35 Ur Leukocyte Esterase NEGATIVE (NEGATIVE) 03/13/20 19:35 Urine RBC None Seen /HPF (0-5) 03/13/20 19:35 Urine WBC 0-3 /HPF (0-5) 03/13/20 19:35 Ur Squamous Epith Cells RARE Squamous (<= Few) 03/13/20 19:35 Urine Bacteria None Seen /HPF (None Seen) 03/13/20 19:35 Urine Casts 3-5 Hyaline Casts /LPF 03/13/20 19:35 Ur Microscopic Review INDICATED 03/13/20 19:35 Urine Culture Comments NOT INDICATED 03/13/20 19:35 SARS-CoV-2 (PCR) NOT DETECTED 03/20/20 11:40 ABX Reporting Has patient been on IV antibiotics over the past 48 hours?: Yes Current Medications - Current Medications Current Medications: Active Medications Acetaminophen (Tylenol) 650 mg PO Q4HR PRN PRN Reason: Pain 1 to 4 Last Admin: 03/20/20 18:49 Dose: 650 mg Documented by: Diphenhydramine HCl (Benadryl) 12.5 mg PO QPM PRN PRN Reason: Cramp Docusate Sodium (Colace 250mg Capsule) 250 - 500 mg PO DAILY [facility] Last Admin: 03/21/20 08:45 Dose: 250 mg Documented by: Enoxaparin Sodium (Lovenox) 40 mg SUBQ DAILY [facility] Last Admin: 03/21/20 08:31 Dose: 40 mg Documented by: Levofloxacin (Levaquin) 750 mg PO DAILY [facility] Last Admin: 03/21/20 08:28 Dose: 750 mg Documented by: Magnesium Oxide (Mag Ox) 400 mg PO 1700 [facility] Last Admin: 03/20/20 18:11 Dose: 400 mg Documented by: Mineral Oil (Cavilon) 1 applic TOP PRN PRN PRN Reason: Skin Care Last Admin: 03/14/20 20:40 Dose: 1 applic Documented by: Multi-Ingredient Ointment (Zinc Oxide) 1 applic TOP PRN PRN PRN Reason: Skin Care Last Admin: 03/15/20 14:21 Dose: 1 applic Documented by: Multivitamins/Minerals (Theragran M) 1 tab PO 1700 [facility] Last Admin: 03/20/20 18:49 Dose: 1 tab Documented by: Nystatin (Nystop) 1 applic TOP BID [facility] Last Admin: 03/21/20 08:47 Dose: 1 applic Documented by: Ondansetron HCl (Zofran Odt) 4 mg TL Q6HR PRN PRN Reason: Nausea / Vomiting Oxycodone HCl (Roxicodone) 5 mg PO Q4HR PRN PRN Reason: Pain 5 to 7 Polyethylene Glycol (Miralax) 17 gm PO DAILY [facility] Last Admin: 03/21/20 08:42 Dose: 17 gm Documented by: Pyridoxine HCl (Vitamin B-6) 100 mg PO BID [facility] Last Admin: 03/21/20 08:30 Dose: 100 mg Documented by: Saccharomyces Boulardii (Florastor) 250 mg PO BIDWM [facility] Last Admin: 03/21/20 08:23 Dose: 250 mg Documented by: Senna (Senokot) 8.6 - 17.2 mg PO DAILY [facility] Last Admin: 03/21/20 08:44 Dose: 8.6 mg Documented by: Sodium Chloride (Normal Saline Flush 0.9%) 10 ml IVP PRN PRN PRN Reason: NEEDED PER PROVIDER ORDERS Last Admin: 03/14/20 09:26 Dose: 10 ml Documented by: Sodium Chloride (Normal Saline Flush 0.9%) 10 ml IVP 0100,0900,1700 [facility] Last Admin: 03/21/20 08:29 Dose: 10 ml Documented by: No Known Home Medications 03/13/20
[2020-03-21] MEDS: MAGNESIUM OXIDE 400 MG TABLET PO SCH (17:06)
[2020-03-21] MEDS: MULTIVITAMIN W/MINERALS TABLET PO SCH (17:06)
--- NOTE | 2020-03-21 18:09 | PROVIDER PROGRESS NOTE ---
Subjective - General Admit Date: 03/13/20 Procedure Date: 03/20/20 Post Op Days: 1 Procedure Performed: Debridement of bilateral heel ulcers - Other Other Information/Narrative: Stephani denies any pain in her heels and reports she is looking forward to getting out of the hospital. She is in good spirits. Objective - Patient Data Reviewed Vital Signs: Yes Vital Signs: Vital Signs x48h Temp Pulse Resp BP Pulse Ox 03/21/20 16:00 36.7 C 100 18 109/72 95 Weight: Weight 03/19/20 03/20/20 03/21/20 23:59 23:59 23:59 Weight (kg) 116 kg Intake & Output: Intake and Output Totals x24h 03/19/20 03/20/20 03/21/20 23:59 23:59 23:59 Intake Total 1035 930 830 Output Total 2400 3500 900 Balance -1365 -2570 -70 - Lab Results Lab Results: 03/21/20 04:36 03/21/20 04:36 Other Lab Results: Lab Results x24hrs 03/21/20 03/21/20 03/21/20 Range/Units 04:36 04:36 04:36 WBC 9.3 (4.8-10.8) x10^3/uL RBC 3.48 L (4.20-5.40) 10^6/uL Hgb 10.5 L (12.0-16.0) g/dL Hct 33.7 L (37.0-47.0) % MCV 96.8 (81.0-99.0) fL MCH 30.2 (27.0-31.0) pg MCHC 31.2 L (32.0-36.0) g/dL RDW 14.7 (12.0-15.0) % Plt Count 265 (130-450) 10^3/uL MPV 11.2 H (7.9-10.8) fL Neut # (Auto) 7.7 H (1.5-6.6) 10^3/uL Lymph # (Auto) 0.9 L (1.5-3.5) 10^3/uL [place] # (Auto) 0.6 (0.0-1.0) 10^3/uL Eos # (Auto) 0.0 (0.0-0.7) 10^3/uL Baso # (Auto) 0.0 (0.0-0.1) 10^3/uL Absolute Nucleated RBC 0.00 x10^3/uL Nucleated RBC % 0.0 /100WBC Sodium 138 (135-145) mmol/L Potassium 4.0 (3.5-5.0) mmol/L Chloride 104 (101-111) mmol/L Carbon Dioxide 26 (21-32) mmol/L Anion Gap 8.0 (6-13) BUN 14 (6-20) mg/dL Creatinine 0.6 (0.4-1.0) mg/dL Estimated GFR (MDRD) 99 (>89) Glucose 125 H (70-100) mg/dL Calcium 8.1 L (8.5-10.3) mg/dL C-Reactive Protein 1.3 H (0-1.0) mg/dL - Current Medications Current Medications: Current Medications Generic Name Dose Route Start Last Admin Trade Name Freq PRN Reason Stop Dose Admin Acetaminophen 650 mg 03/13/20 20:02 03/20/20 18:49 Tylenol PO 650 mg Q4HR PRN Administration Pain 1 to 4 Docusate Sodium 250 - 500 mg 03/21/20 09:00 03/21/20 08:45 Colace 250mg Capsule PO 250 mg DAILY [facility] Administration Enoxaparin Sodium 40 mg 03/14/20 09:00 03/21/20 08:31 Lovenox SUBQ 40 mg DAILY [facility] Administration Levofloxacin 750 mg 03/18/20 09:00 03/21/20 08:28 Levaquin PO 750 mg DAILY [facility] Administration Magnesium Oxide 400 mg 03/18/20 17:00 03/21/20 17:06 Mag Ox PO 400 mg 1700 [facility] Administration Mineral Oil 1 applic 03/14/20 09:42 03/14/20 20:40 Cavilon TOP 1 applic PRN PRN Administration Skin Care Multi-Ingredient Ointment 1 applic 03/14/20 09:42 03/15/20 14:21 Zinc Oxide TOP 1 applic PRN PRN Administration Skin Care Multivitamins/Minerals 1 tab 03/18/20 17:00 03/21/20 17:06 Theragran M PO 1 tab 1700 [facility] Administration Nystatin 1 applic 03/13/20 23:00 03/21/20 08:47 Nystop TOP 1 applic BID [facility] Administration Polyethylene Glycol 17 gm 03/19/20 11:00 03/21/20 08:42 Miralax PO 17 gm DAILY [facility] Administration Pyridoxine HCl 100 mg 03/13/20 23:00 03/21/20 08:30 Vitamin B-6 PO 100 mg BID [facility] Administration Saccharomyces Boulardii 250 mg 03/14/20 17:00 03/21/20 17:06 Florastor PO 250 mg BIDWM [facility] Administration Senna 8.6 - 17.2 mg 03/21/20 09:00 03/21/20 08:44 Senokot PO 8.6 mg DAILY [facility] Administration Sodium Chloride 10 ml 03/13/20 20:02 03/14/20 09:26 Normal Saline Flush 0.9% IVP 10 ml PRN PRN Administration NEEDED PER PROVIDER ORDERS Sodium Chloride 10 ml 03/14/20 01:00 03/21/20 17:06 Normal Saline Flush 0.9% IVP 10 ml 0100,0900,1700 [facility] Administration - Physical Exam Comments/Other: Bilateral heel wounds are clean with moderate drainage. No foul odour now. Both dressing are removed and the wounds are redressed with Aquacel Hydrofiber and wrapped with an kevan wrap. Patient tolerated dressing change without difficulty Impression/Plan - Problem List Problem List: Agree with plans for discharge to SNF. She must be non weight bearing on the heel wound for 3 months as least. She may stand on her toes for short periods and to pivot if balance will allow. Heel dressings should be changed and redressed with Aquacel or other hydrofiber dressing every 3 days. These requirements may need to be adjusted as the drainage from the wounds decreases. Follow up with the wound care center for outpatient management
[2020-03-21] MEDS: ACETAMINOPHEN 325 MG TABLET PO PRN (20:43)
[2020-03-21] MEDS ORDERED: MAGNESIUM HYDROXIDE 2,400 MG/30 ML UDC PO ONE (22:58)
[2020-03-22 04:51] LABS: BASOPHILS # (AUTO) 0.1 10^3/uL (0.0-0.1); BASOPHILS % (AUTO) 0.7 %; EOSINOPHILS # (AUTO) 0.2 10^3/uL (0.0-0.7); EOSINOPHILS % (AUTO) 3.2 %; HGB - HEMOGLOBIN 10.2 g/dL (12.0-16.0); LYMPHOCYTES # (AUTO) 1.4 10^3/uL (1.5-3.5); LYMPHOCYTES % (AUTO) 18.6 %; MEAN CORPUSCULAR HEMOGLOBIN 30.8 pg (27.0-31.0); MEAN CORPUSCULAR HGB CONC 31.8 g/dL (32.0-36.0); MEAN PLATELET VOLUME 10.8 fL (7.9-10.8); MONOCYTES # (AUTO) 0.7 10^3/uL (0.0-1.0); NEUTROPHILS # (AUTO) 4.9 10^3/uL (1.5-6.6); NEUTROPHILS % (AUTO) 67.1 %; PLT - PLATELET COUNT 296 10^3/uL (130-450); RED BLOOD COUNT 3.31 10^6/uL (4.20-5.40); RED CELL DISTRIBUTION WIDTH 14.9 % (12.0-15.0); WHITE BLOOD COUNT 7.3 x10^3/uL (4.8-10.8)
[2020-03-22 05:06] LABS: BUN - BLOOD UREA NITROGEN 21 mg/dL (6-20); CALCIUM 8.2 mg/dL (8.5-10.3); CARBON DIOXIDE - CO2 26 mmol/L (21-32); CHLORIDE 105 mmol/L (101-111); CREATININE 0.6 mg/dL (0.4-1.0); GLUCOSE 108 mg/dL (70-100); SODIUM 138 mmol/L (135-145)
[2020-03-22 05:29] LABS: CRP - C-REACTIVE PROTEIN < 1.0 mg/dL (0-1.0)
[2020-03-22] MEDS ORDERED: MAGNESIUM HYDROXIDE 2,400 MG/30 ML UDC PO ONE (09:00)
[2020-03-22] MEDS: levoFLOXacin 250 MG TABLET PO SCH (10:33)
[2020-03-22] MEDS: polyethylene glycoL 3350 17 GM PACKET PO SCH (10:34)
[2020-03-22] MEDS: SACCHAROMYCES BOULARDII 250 MG CAPSULE PO SCH ×2 (10:34→16:28)
[2020-03-22] MEDS: DOCUSATE SODIUM 250 MG CAPSULE PO SCH (10:34)
[2020-03-22] MEDS: SENNA 8.6 MG TABLET PO SCH (10:34)
[2020-03-22] MEDS: PYRIDOXINE 100 MG TABLET PO SCH ×2 (10:34→21:28)
[2020-03-22] MEDS: ENOXAPARIN 40 MG/0.4 ML SYRINGE SUBQ SCH (10:39)
[2020-03-22] MEDS: SODIUM CHLORIDE FLUSH 0.9% 10 ML SYRINGE IVP SCH ×3 (10:48→23:35)
[2020-03-22] MEDS: NYSTATIN POWDER 15 GM TOP SCH ×2 (12:29→21:28)
[2020-03-22] MEDS: MAGNESIUM OXIDE 400 MG TABLET PO SCH (16:28)
[2020-03-22] MEDS: MULTIVITAMIN W/MINERALS TABLET PO SCH (16:28)
[2020-03-22] MEDS: ACETAMINOPHEN 325 MG TABLET PO PRN (22:29)
[2020-03-23 05:26] LABS: BASOPHILS # (AUTO) 0.1 10^3/uL (0.0-0.1); BASOPHILS % (AUTO) 0.8 %; EOSINOPHILS # (AUTO) 0.2 10^3/uL (0.0-0.7); EOSINOPHILS % (AUTO) 3.2 %; LYMPHOCYTES # (AUTO) 1.4 10^3/uL (1.5-3.5); LYMPHOCYTES % (AUTO) 21.4 %; MEAN CORPUSCULAR HEMOGLOBIN 30.2 pg (27.0-31.0); MEAN CORPUSCULAR HGB CONC 30.9 g/dL (32.0-36.0); MEAN CORPUSCULAR VOLUME 97.9 fL (81.0-99.0); MEAN PLATELET VOLUME 10.5 fL (7.9-10.8); MONOCYTES # (AUTO) 0.7 10^3/uL (0.0-1.0); MONOCYTES % (AUTO) 10.1 %; NEUTROPHILS # (AUTO) 4.3 10^3/uL (1.5-6.6); NEUTROPHILS % (AUTO) 63.9 %; PLT - PLATELET COUNT 308 10^3/uL (130-450); RED BLOOD COUNT 3.31 10^6/uL (4.20-5.40); RED CELL DISTRIBUTION WIDTH 15.3 % (12.0-15.0); WHITE BLOOD COUNT 6.6 x10^3/uL (4.8-10.8)
[2020-03-23 05:37] LABS: CALCIUM 7.9 mg/dL (8.5-10.3); CREATININE 0.6 mg/dL (0.4-1.0)
--- NOTE | 2020-03-23 07:34 | PROVIDER PROGRESS NOTE ---
Assessment/Plan - Problem List (1) Cellulitis of both lower extremities Assessment/Plan: 03/22 pt is stable, and pt is pending for replacement, continue antibiotics 03/21 great improved. no swelling, and erythema significantly reduced, normal temperature, has intact distal neurovasclar examination pt is pending for replacement by SW improved. erythema and swelling was reduced. WBC is normal, CRP continue trended down. Blood culture is negative. continue antibiotics Levaquin (2) Decubitus ulcer 03/22 surgeon has note for dress change and instruction for physical therapy, will followup with, continue antibiotics 03/21 pt had I/D on yesterday, followup with surgeon for ambulation and dressing instruction, continue antibiotics. general surgeon will have I/D for pt's bilateral heel wound ulcer, will followup, continue pain control, continue antibiotics, continue PT/OT (3) Leg cramps Assessment/Plan: stable, pt did not complain now. Correct electrolyte or magnesium abnormalities (4) Morbid obesity with BMI of 45.0-49.9, adult Assessment/Plan: advise pt loss weight (5) Cor pulmonale Assessment/Plan: 03/21 stable, order night O2 supplement for pt. pt has This new diagnosis echo done this admission shown elevated RVSP 60 mmHG. Because of her obesity, suspect obesity-hypoventilation syndrome. Overnight oximetry test was done for this reason. She failed her overnight oximetry, she need an oxygen order due to nocturnal desaturations when pt on d/c (6) Venous stasis dermatitis of both lower extremities Assessment/Plan: 03/21 great improvement, no swelling, and erythema significantly reduced improved. erythema and swelling are reduced. it was likely related to prolonged leg edema from her cor pulmonale from her immobility from her morbid obesity. (7) Generalized weakness Assessment/Plan: order pt out of bed to chair, continue PT/OT. pt was recommended to SNF, consult with SW for disposition (8) Self neglect Assessment/Plan: As the HPI, consult with social sciences chair to help pt. (9) Poor hygiene Assessment/Plan: There was no running water in her residence, consult with social sciences chair to help pt (10) Hypokalemia Assessment/Plan: Resolved. (11) Prerenal azotemia Assessment/Plan: Resolved with IV replacement - Current Meds Current Meds: Current Medications Generic Name Dose Route Start Last Admin Trade Name Freq PRN Reason Stop Dose Admin Acetaminophen 650 mg 03/13/20 20:02 03/22/20 22:29 Tylenol PO 650 mg Q4HR PRN Administration Pain 1 to 4 Docusate Sodium 250 - 500 mg 03/21/20 09:00 03/22/20 10:34 Colace 250mg Capsule PO 250 mg DAILY [facility] Administration Enoxaparin Sodium 40 mg 03/14/20 09:00 03/22/20 10:39 Lovenox SUBQ 40 mg DAILY [facility] Administration Levofloxacin 750 mg 03/18/20 09:00 03/22/20 10:33 Levaquin PO 750 mg DAILY [facility] Administration Magnesium Oxide 400 mg 03/18/20 17:00 03/22/20 16:28 Mag Ox PO 400 mg 1700 [facility] Administration Mineral Oil 1 applic 03/14/20 09:42 03/14/20 20:40 Cavilon TOP 1 applic PRN PRN Administration Skin Care Multi-Ingredient Ointment 1 applic 03/14/20 09:42 03/15/20 14:21 Zinc Oxide TOP 1 applic PRN PRN Administration Skin Care Multivitamins/Minerals 1 tab 03/18/20 17:00 03/22/20 16:28 Theragran M PO 1 tab 1700 [facility] Administration Nystatin 1 applic 03/13/20 23:00 03/22/20 21:28 Nystop TOP 1 applic BID [facility] Administration Polyethylene Glycol 17 gm 03/19/20 11:00 03/22/20 10:34 Miralax PO 17 gm DAILY [facility] Administration Pyridoxine HCl 100 mg 03/13/20 23:00 03/22/20 21:28 Vitamin B-6 PO 100 mg BID [facility] Administration Saccharomyces Boulardii 250 mg 03/14/20 17:00 03/22/20 16:28 Florastor PO 250 mg BIDWM [facility] Administration Senna 8.6 - 17.2 mg 03/21/20 09:00 03/22/20 10:34 Senokot PO 8.6 mg DAILY [facility] Administration Sodium Chloride 10 ml 03/13/20 20:02 03/14/20 09:26 Normal Saline Flush 0.9% IVP 10 ml PRN PRN Administration NEEDED PER PROVIDER ORDERS Sodium Chloride 10 ml 03/14/20 01:00 03/22/20 23:35 Normal Saline Flush 0.9% IVP 10 ml 0100,00,1700 [facility] Administration - Lab Result Fish Bone Diagrams: 03/23/20 05:00 03/23/20 05:00 - Additional Planning My Orders: My Active Orders 03/24/20 05:00 BMP - BASIC METABOLIC PANEL [CHEM] DAILYLAB CBC - COMP BLD CT W/AUTO DIFF [HEME] DAILYLAB 03/25/20 05:00 BMP - BASIC METABOLIC PANEL [CHEM] DAILYLAB CBC - COMP BLD CT W/AUTO DIFF [HEME] DAILYLAB Subjective - Subjective Patient Reports: Feeling Better Nursing Reports: No Complaints Objective Vital Signs: Vital Signs - 24 hr 03/22/20 03/22/20 07:55 23:39 Temperature 36.8 C 36.7 C Heart Rate [ 50 L 81 Brachial] Respiratory 18 18 Rate Blood Pressure 115/67 95/51 L [Right Brachial artery] O2 Saturation 95 98 Oxygen O2 Source Nasal cannula I&O (Last 24 Hrs): Intake and Output Totals x24h 03/21/20 03/22/20 03/23/20 23:59 23:59 23:59 Intake Total 830 1010 Output Total 1500 2800 200 Balance -670 -1790 -200 General: Alert, Oriented x3, No acute distress HEENT: Atraumatic Neck: Supple Lymphatic: no adenopathy Neuro: Alert, Non Focal, Oriented Times 3 Cardiovascular: Regular rate, Normal S1, Normal S2 Respiratory: Chest non-tender, No respiratory distress Abdomen: Normal bowel sounds, Soft - Results Results: Laboratory Results WBC 6.6 x10^3/uL (4.8-10.8) 03/23/20 05:00 RBC 3.31 10^6/uL (4.20-5.40) L 03/23/20 05:00 Hgb 10.0 g/dL (12.0-16.0) L 03/23/20 05:00 Hct 32.4 % (37.0-47.0) L 03/23/20 05:00 MCV 97.9 fL (81.0-99.0) 03/23/20 05:00 MCH 30.2 pg (27.0-31.0) 03/23/20 05:00 MCHC 30.9 g/dL (32.0-36.0) L 03/23/20 05:00 RDW 15.3 % (12.0-15.0) H 03/23/20 05:00 Plt Count 308 10^3/uL (130-450) 03/23/20 05:00 MPV 10.5 fL (7.9-10.8) 03/23/20 05:00 Neut # (Auto) 4.3 10^3/uL (1.5-6.6) 03/23/20 05:00 Lymph # (Auto) 1.4 10^3/uL (1.5-3.5) L 03/23/20 05:00 Steele # (Auto) 0.7 10^3/uL (0.0-1.0) 03/23/20 05:00 Eos # (Auto) 0.2 10^3/uL (0.0-0.7) 03/23/20 05:00 Baso # (Auto) 0.1 10^3/uL (0.0-0.1) 03/23/20 05:00 Absolute Nucleated RBC 0.00 x10^3/uL 03/23/20 05:00 Total Counted 100 03/14/20 04:25 Band Neuts % (Manual) 2 % (0-10) 03/14/20 04:25 Abnorm Lymph % (Manual) 0 % 03/14/20 04:25 Nucleated RBC % 0.0 /100WBC 03/23/20 05:00 Neutrophils # (Manual) 15.1 10^3/uL (1.5-6.6) H 03/14/20 04:25 Lymphocytes # (Manual) 1.4 10^3/uL (1.5-3.5) L 03/14/20 04:25 Monocytes # (Manual) 1.1 10^3/uL (0.0-1.0) H 03/14/20 04:25 Eosinophils # (Manual) 0.0 10^3/uL (0-0.7) 03/14/20 04:25 Basophils # (Manual) 0.0 10^3/uL (0-0.1) 03/14/20 04:25 Differential Comment MANUAL DIFFERENTIAL 03/14/20 04:25 Platelet Estimate NORMAL (130-450,000) (NORMAL) 03/14/20 04:25 Platelet Morphology NORMAL APPEARANCE (NORMAL) 03/13/20 18:00 RBC Morph Micro Appear NORMAL APPEARANCE (NORMAL) 03/14/20 04:25 Sodium 137 mmol/L (135-145) 03/23/20 05:00 Potassium 3.7 mmol/L (3.5-5.0) 03/23/20 05:00 Chloride 104 mmol/L (101-111) 03/23/20 05:00 Carbon Dioxide 27 mmol/L (21-32) 03/23/20 05:00 Anion Gap 6.0 (6-13) 03/23/20 05:00 BUN 18 mg/dL (6-20) 03/23/20 05:00 Creatinine 0.6 mg/dL (0.4-1.0) 03/23/20 05:00 Estimated GFR (MDRD) 99 (>89) 03/23/20 05:00 Glucose 106 mg/dL (70-100) H 03/23/20 05:00 Lactic Acid 1.3 mmol/L (0.5-2.2) 03/14/20 14:35 Calcium 7.9 mg/dL (8.5-10.3) L 03/23/20 05:00 Phosphorus 2.7 mg/dL (2.5-4.6) 03/14/20 04:25 Magnesium 2.0 mg/dL (1.7-2.8) 03/14/20 04:25 Total Bilirubin 0.9 mg/dL (0.2-1.0) 03/13/20 18:00 AST 43 IU/L (10-42) H 03/13/20 18:00 ALT 41 IU/L (10-60) 03/13/20 18:00 Alkaline Phosphatase 128 IU/L (42-121) H 03/13/20 18:00 Troponin I High Sens 33.9 ng/L (2.3-14.8) H* 03/14/20 20:55 C-Reactive Protein < 1.0 mg/dL (0-1.0) 03/22/20 04:30 B-Natriuretic Peptide 110 pg/mL (5-100) H 03/13/20 18:00 Total Protein 7.5 g/dL (6.7-8.2) 03/13/20 18:00 Albumin 3.2 g/dL (3.2-5.5) 03/13/20 18:00 Globulin 4.3 g/dL (2.1-4.2) H 03/13/20 18:00 Albumin/Globulin Ratio 0.7 (1.0-2.2) L 03/13/20 18:00 Lipase 21 U/L (22-51) L 03/13/20 18:00 TSH 2.05 uIU/mL (0.34-5.60) 03/13/20 18:00 Urine Color YELLOW 03/13/20 19:35 Urine Clarity CLEAR (CLEAR) 03/13/20 19:35 Urine pH 6.0 PH (5.0-7.5) 03/13/20 19:35 Ur Specific [place] 1.025 (1.002-1.030) 03/13/20 19:35 Urine Protein 30 mg/dL (NEGATIVE) H 03/13/20 19:35 Urine Glucose (UA) NEGATIVE mg/dL (NEGATIVE) 03/13/20 19:35 Urine Ketones TRACE mg/dL (NEGATIVE) 03/13/20 19:35 Urine Occult Blood NEGATIVE (NEGATIVE) 03/13/20 19:35 Urine Nitrite NEGATIVE (NEGATIVE) 03/13/20 19:35 Urine Bilirubin NEGATIVE (NEGATIVE) 03/13/20 19:35 Urine Urobilinogen 1 (NORMAL) E.U./dL (NORMAL) 03/13/20 19:35 Ur Leukocyte Esterase NEGATIVE (NEGATIVE) 03/13/20 19:35 Urine RBC None Seen /HPF (0-5) 03/13/20 19:35 Urine WBC 0-3 /HPF (0-5) 03/13/20 19:35 Ur Squamous Epith Cells RARE Squamous (<= Few) 03/13/20 19:35 Urine Bacteria None Seen /HPF (None Seen) 03/13/20 19:35 Urine Casts 3-5 Hyaline Casts /LPF 03/13/20 19:35 Ur Microscopic Review INDICATED 03/13/20 19:35 Urine Culture Comments NOT INDICATED 03/13/20 19:35 SARS-CoV-2 (PCR) NOT DETECTED 03/20/20 11:40 ABX Reporting Has patient been on IV antibiotics over the past 48 hours?: Yes Current Medications - Current Medications Current Medications: Active Medications Acetaminophen (Tylenol) 650 mg PO Q4HR PRN PRN Reason: Pain 1 to 4 Last Admin: 03/22/20 22:29 Dose: 650 mg Documented by: Diphenhydramine HCl (Benadryl) 12.5 mg PO QPM PRN PRN Reason: Cramp Docusate Sodium (Colace 250mg Capsule) 250 - 500 mg PO DAILY [facility] Last Admin: 03/22/20 10:34 Dose: 250 mg Documented by: Enoxaparin Sodium (Lovenox) 40 mg SUBQ DAILY [facility] Last Admin: 03/22/20 10:39 Dose: 40 mg Documented by: Levofloxacin (Levaquin) 750 mg PO DAILY [facility] Last Admin: 03/22/20 10:33 Dose: 750 mg Documented by: Magnesium Oxide (Mag Ox) 400 mg PO 1700 [facility] Last Admin: 03/22/20 16:28 Dose: 400 mg Documented by: Mineral Oil (Cavilon) 1 applic TOP PRN PRN PRN Reason: Skin Care Last Admin: 03/14/20 20:40 Dose: 1 applic Documented by: Multi-Ingredient Ointment (Zinc Oxide) 1 applic TOP PRN PRN PRN Reason: Skin Care Last Admin: 03/15/20 14:21 Dose: 1 applic Documented by: Multivitamins/Minerals (Theragran M) 1 tab PO 1700 [facility] Last Admin: 03/22/20 16:28 Dose: 1 tab Documented by: Nystatin (Nystop) 1 applic TOP BID [facility] Last Admin: 03/22/20 21:28 Dose: 1 applic Documented by: Ondansetron HCl (Zofran Odt) 4 mg TL Q6HR PRN PRN Reason: Nausea / Vomiting Oxycodone HCl (Roxicodone) 5 mg PO Q4HR PRN PRN Reason: Pain 5 to 7 Polyethylene Glycol (Miralax) 17 gm PO DAILY [facility] Last Admin: 03/22/20 10:34 Dose: 17 gm Documented by: Pyridoxine HCl (Vitamin B-6) 100 mg PO BID [facility] Last Admin: 03/22/20 21:28 Dose: 100 mg Documented by: Saccharomyces Boulardii (Florastor) 250 mg PO BIDWM [facility] Last Admin: 03/22/20 16:28 Dose: 250 mg Documented by: Senna (Senokot) 8.6 - 17.2 mg PO DAILY [facility] Last Admin: 03/22/20 10:34 Dose: 8.6 mg Documented by: Sodium Chloride (Normal Saline Flush 0.9%) 10 ml IVP PRN PRN PRN Reason: NEEDED PER PROVIDER ORDERS Last Admin: 03/14/20 09:26 Dose: 10 ml Documented by: Sodium Chloride (Normal Saline Flush 0.9%) 10 ml IVP 0100,0900,1700 [facility] Last Admin: 03/22/20 23:35 Dose: 10 ml Documented by: No Known Home Medications 03/13/20
--- NOTE | 2020-03-23 08:23 | Discharge Plan ---
"Discharge Plan for SNF / [facility] - Discharge Plan And Transition Orders Problem Reviewed?: Yes Disposition: 03 [facility] DC/Xfer Condition: Stable Allergies and Adverse Reactions: Allergies Allergy/AdvReac Type Severity Reaction Status Date / Time No Known Drug Allergies Allergy Verified 03/13/20 17:38 Health Concerns: decubitus ulcers, weakness, Low nocturnal oxygen saturation Plan of Treatment: pt must be non weight bearing on the heel wound for 3 months as least. She may stand on her toes for short periods and to pivot if balance will allow. Heel dressings should be changed and redressed with Aquacel or other hydrofiber dressing every 3 days. These requirements may need to be adjusted as the drainage from the wounds decreases. Follow up with the wound care center for outpatient management. Continue PT/OT in SNF pt required application of Oxygen at 2 lpm NC at the night, her O2 sats improved to 91% or greater, may followup with corporate sales representative for sleep study as out pt Care Goals: stabilization and improvement/healing of your wound/ulcers Assessment: discussed with pt the care plan, pt understood - SNF / [facility] Transition Orders Admit to (Facility): [facility] Under the care of (Name): Medical Provider of [facility] Discharge Diagnosis: cellulitis of both lower extremities, decubitus ulcer, morbid obesity, Cor pulmonale, low nocturnal oxygen saturation, bilateral lower extremities venous stasis dermatitis, weakness, self neglect, poor hygiene Medicare Certification Statement: I certify that [facility] care is medically necessary on a continuing basis for any of the conditions for which she/he is receiving care during hospitalization. Notify PCP of admission and forward orders to primary provider for signature. Weight on admission and: Daily Call PCP immediately if weight increases by: 2 kg Other Notification Orders: Call PCP immediately if patient develops dyspnea, chest pain/tightness or edema. House Bowel Program: Yes Additional Bowel Program Orders: If no BM after 2 days, nurse may give M.O.M. 30ml PO PRN and/or ducolax Supp 1 [place] and/or RAHUL 250mg P.O., and/or senna 1-2 tabs PO. On day 3 nurse may give repeat above order until residents constipation is resolved. Annual Influenza Vaccine (between Jan 16 and August 15): Yes Two-step PPD per [facility] [id number] or approved exception documents: Yes Treatments & Other Orders: pt must be non weight bearing on the heel wound for 3 months as least. She may stand on her toes for short periods and to pivot if balance will allow. Heel dressings should be changed and redressed with Aquacel or other hydrofiber dressing every 3 days. These requirements may need to be adjusted as the drainage from the wounds decreases. Follow up with the wound care center for outpatient management. Continue PT/OT in SNF. pt required application of Oxygen at 2 lpm NC at the night, her O2 sats improved to 91% or greater, may followup with corporate sales representative for sleep study as out pt Oxygen Orders: pt required application of Oxygen at 2 lpm NC at the night, her O2 sats improved to 91% or greater Medication Orders: PLEASE REFER TO THE DISCHARGE MEDICATION LIST. Insulin Orders?: No - Medications New Prescriptions: oxyCODONE [Roxicodone] 5 mg PO Q4HR PRN #20 tablet PRN Reason: Pain 5 to 7 Saccharomyces Boulardii [Florastor] 250 mg PO BIDWM #30 capsule levoFLOXacin [Levaquin] 750 mg PO DAILY #21 tablet Magnesium Oxide [Mag Ox] 400 mg PO 1700 #15 tablet Multivitamin W/Minerals [Theragran M] 1 tab PO 1700 #30 tablet - Diet Type: Geriatric Texture: Regular Liquids: Thin May have monthly special meal: Yes - Therapies | Activity Therapy: Evaluation | Treat if indicated: PT, OT Rehabilitation Potential: Maximize functional status Activity: Activity as Tolerated"
[2020-03-23 08:34] VITALS: BP 112/57
[2020-03-23] MEDS: ACETAMINOPHEN 325 MG TABLET PO PRN (08:40)
[2020-03-23] MEDS: SACCHAROMYCES BOULARDII 250 MG CAPSULE PO SCH (08:40)
[2020-03-23] MEDS: levoFLOXacin 250 MG TABLET PO SCH (08:42)
[2020-03-23] MEDS: DOCUSATE SODIUM 250 MG CAPSULE PO SCH (08:42)
[2020-03-23] MEDS: ENOXAPARIN 40 MG/0.4 ML SYRINGE SUBQ SCH (08:42)
--- NOTE | 2020-03-23 08:42 | DISCHARGE SUMMARY ---
"Discharge Summary Admit Date: 03/13/20 Discharge Date: 03/23/20 Discharging Provider: Jagjit Kidd Primary Care Provider: Michael Aponte Condition at Discharge: Stable Discharge Disposition: 03 SNF DC/Xfer Discharge Facility Name: [facility] - DIAGNOSES Discharge Diagnoses with Status of Each Condition: (1) Cellulitis of both lower extremities clinically resolved. pt's bilateral lower extremities erythema, swelling, and tenderness are clinically resolved. continue PT/OT in SNF for strength training. (2) Decubitus ulcer pt had multiple different stage pressure ulcers at her back and buttock area, and each side had one stage 3-4 pressure ulcer at her bilateral heel. For this two heel ulcers, we consulted with Surgeon, and surgeon did debridement procedure for pt. SNF was given the advice for the wound care instruction, and the advise of Follow up with the wound care center for outpatient management, and PT/OT instruction as discharge plan. For pt's back stage 1-2 pressure ulcers, followup SNF nurse home's nurse care to protect the skin. surgeon agreed the discharge plan to SNF. Wound culture show pt had multiple bacterial including beta hemolytic Group G, Providencia Rettgeri, Proteus Hauseri, Klebsiella Pneumoniae, enterococcus Faecalis, Staphylococcus Aureus. According to sensitivity study, Levaquin was ordered for pt. Levaquin was prescribed for pt to continue treatment course. A fter treatment, pt's WBC because normal, CRP became normal arrange. pt has no fever, chill. Pt had wound care consult, nurse followup with wound care instruction and surgeon instruction for dressing change. pt may Follow up with the wound care center for outpatient management, pt may followup with surgeon as out-pt to monitor wound healing condition. (3) Leg cramps resolved. (4) Morbid obesity with BMI of 45.0-49.9, adult advise pt loss weight (5) Cor pulmonale ECHO show pt had RVSP 60 mmHG and moderately abnormal right heart pressure, and pulmonary hypertension. nocturnal oxygen saturation study was performed with sleep. Pt did sustain >5 minutes of hypoxia, with O2 sats in the range of 87-88% on room air. after application of Oxygen at 2 lpm nasal cannula, her O2 sats improved to 91% or greater. I am ordering home Oxygen, 2 lpm via nasal cannula with sleep only to treat this pt hypoxia, JILLIAN/obesity hypoventilation syndrome. (6) Venous stasis dermatitis of both lower extremities improved/resolved. pt's bilateral lower extremities venous stasis dermatitis was basically resolved. No more swelling, redness or tenderness. (7) Generalized weakness improved, continue SNF's PT/OT (8) Self neglect Educate pt for hygiene care, and consult with social work coordinator to help pt. (9) Poor hygiene Educate pt for hygiene care, and consult with social work coordinator to help pt. (10) Hypokalemia Resolved. (11) Prerenal azotemia Resolved, advise pt keep hydration. - HPI History of Present Illness: refer from Dr. Keys's HPI on 03/13/2020 69-year-old female who is 5 foot 3 inches tall and weighs 114 kg that presents to the emergency room via EMS, unable to get out of her car to ambulate into her home. She lives alone, but her house does not have running water For the last 2 months because a pipe broke. She just has not gotten around to getting it fixed. She does not have a primary care provider. She takes no medications on a regular basis. She had gone to the grocery store in a car, came back and try to get out of her car and realized that her legs were aching so tremendously she just could not make it. She was hoping that EMS would just take her into her home when she called them. But her home situation is not livable. As such EMS brought her to the emergency room. She states that she has been getting gradually weaker and weaker.This is over the last couple of weeks. She cannot really say why. She denies fever, cough, chills. She denies urgency, frequency dysuria. In 2016 she almost fell down the steps in her house and has been terrified of falling ever since. So she has been spending more more time downstairs. She spends most of her time sedentary, watching DVDs and getting caught up on TV shows that she did not watch when she was really working. She has noticed that her legs are getting more swollen but has not really paid attention to that. Her legs are painful are in her calves because of ulcers. Her heels are not very painful to stand on now. She recognizes that she is deve loped skin breakdown from sitting down for too long but cannot figure out why. She does not think that this is so severe. When she got into her car and drove to [facility], she uses the scooter there to get around. She spends most of her time sitting or laying. She cannot say why. She does not remember having high blood pressure, diabetes, or any diseases for which she takes medications. She does not like doctors and will not see 1.She is to have a fairly active life in her detention. She went to the [employer] with girlfriends, took short walks with him. Went out to restaurants. But ever since Covid, she has not left her house in months. In the emergency room she was evaluated by CLOTILDE Rivera. Afebrile, heart rate 56, 100% room air saturated, respirations 18 and unlabored and a blood pressure of 121/99. Physical exam without of an exceedingly disheveled morbidly obese female that had severe, severe bad body odor. Pertinent findings included swollen legs with venous stasis, ulcers on her legs, and decubitus ulcers of her heels. On laboratory studies she is hypokalemic, BUN is 28. White cell count is 26.2. Urinalysis is contaminated with squamous cells. Culture not indicat ed. Chest x-ray has diffuse interstitial radiopacities and cardiomegaly suggestive of mild congestive heart failure. Her BNP is 110. TSH is 2.05. Lactic acid 1.2. She is now admitted to the hospital to treat the cellulitis of her legs, decubitus ulcers of her heels, and evaluate for possible new onset congestive heart failure. - CONSULTS | PROCEDURES Consultations: Dr Kent Procedures: debridge of bilateral heel wound ulcer infection - HOSPITAL COURSE Hospital Course: pt was admitted for profound weakness, unable to walk. pt was found to have self neglect. pt has no home pipe water, pt has no PCP, very sedentary life style, obesity, not taking any medication, EMS found her home with unlivable situation, and she had multiple pressure ulcer at her back and buttock area, and with two deep ulcer at each of heel. pt had wound culture which show multiple bacterial as discharge diagnosis explaining, according to wound culture and sensitivity study, antibiotics was used to treat pt, pt had PT/OT evaluation and treatment, pt had social work coordinator consult, wound care consult, and surgeon consulting to have debridge for her bilateral heel ulcer wound. Pt was d/c to SNF care per recomme ndation, and followup out-pt wound care and surgeon care for wound as well. - ALLERGIES Allergies/Adverse Reactions: Allergies Allergy/AdvReac Type Severity Reaction Status Date / Time No Known Drug Allergies Allergy Verified 03/13/20 17:38 - MEDICATIONS Home Medications: Ambulatory Orders Medication Instructions Recorded Confirmed Multivitamin W/Minerals [Theragran 1 tab PO 1700 #30 tablet 03/23/20 M] Saccharomyces Boulardii [Florastor] 250 mg PO BIDWM #30 capsule 03/23/20 levoFLOXacin [Levaquin] 750 mg PO DAILY #21 tablet 03/23/20 oxyCODONE [Roxicodone] 5 mg PO Q4HR PRN #20 tablet 03/23/20 - PHYSICAL EXAM AT DISCHARGE General Appearance: positive: No acute distress, Alert. negative: Lethargic Eyes Bilateral: positive: Normal inspection, PERRL, No lid inflammation ENT: positive: ENT inspection nml, No signs of dehydration. negative: Purulent nasal drainage Neck: positive: Nml inspection, Thyroid nml, Trachea midline. negative: Thyromegaly, Tracheal deviation Respiratory: positive: Chest non-tender, No respiratory distress. negative: Wheezes, Rales, Rhonchi Cardiovascular: positive: Regular rate & rhythm, No murmur. negative: Tachycardia, Bradycardia, Systolic murmur, Diastolic murmur Peripheral Pulses: positive: 2+ Abdomen: positive: Non-tender, Nml bowel sounds, No distention. negative: Tenderness, Guarding Back: positive: Nml inspection, Other (multiple pressure ulcer is improved, erythema and swelling are reduced, followup SNF nurse care) Skin: positive: Color nml, Warm, Dry, Other (pressure ulcer conditions are improved, erythema, swelling are significantly reduced, no developed any new pressure ulcer, pressure ulcer was at stage 1/2). negative: Cyanosis, Diaphoresis, Pallor Extremities: positive: Non-tender, Nml appearance, Other (pt had debridge done by surgeon, and surgeon had dressing change and followup care for pt. left heel's necrotic was removed, right side was significantly reduced by surgeon's preocedure.). negative: Calf tenderness Neurologic/Psychiatric: positive: Oriented x3, Sensation nml, Mood/affect nml. negative: Weakness, Sensory loss, Facial droop, Slurred/abnml speech, Depressed mood/affect - LABS Result Diagrams: 03/23/20 05:00 03/23/20 05:00 - FOLLOW UP Follow Up: t must be non weight bearing on the heel wound for 3 months as least. She may stand on her toes for short periods and to pivot if balance will allow. Heel dressings should be changed and redressed with Aquacel or other hydrofiber dressing every 3 days. These requirements may need to be adjusted as the drainage from the wounds decreases. Follow up with the wound care center for outpatient management. Continue PT/OT in SNF, followup with surgeon for wound care as out-pt. pt required application of Oxygen at 2 lpm NC at the night, her O2 sats improved to 91% or greater, may followup with radiologic technologist for sleep study as out pt - TIME SPENT Time Spent in Discharge (Minutes): 30"
[2020-03-23] MEDS: polyethylene glycoL 3350 17 GM PACKET PO SCH (08:43)
[2020-03-23] MEDS: NYSTATIN POWDER 15 GM TOP SCH (08:43)
[2020-03-23] MEDS: SODIUM CHLORIDE FLUSH 0.9% 10 ML SYRINGE IVP SCH (08:44)
[2020-03-23] MEDS: PYRIDOXINE 100 MG TABLET PO SCH (08:44)
[2020-03-23] MEDS: SENNA 8.6 MG TABLET PO SCH (08:44)
== END 2020-03-23 10:45 | DRG 570 ==
LOC: EDUNIT# → ED 17:29 → EEVIPCON 20:02 → MS3 20:02
PROVIDERS: ADMIT Specialist; ATTEND Nurse Practitioner Gerontology
PROC: 0JBQ0ZZ Excision of Right Foot Subcutaneous Tissue and Fascia, Open Approach (ICD-10-PCS; 2020-03-20)
PROC: 0JBR0ZZ Excision of Left Foot Subcutaneous Tissue and Fascia, Open Approach (ICD-10-PCS; principal; 2020-03-20 16:15)
DX: L03.116 Cellulitis of left lower limb (principal); L89.624 Pressure ulcer of left heel, stage 4; L89.614 Pressure ulcer of right heel, stage 4; Z68.42 Body mass index [BMI] 45.0-49.9, adult; E66.2 Morbid (severe) obesity with alveolar hypoventilation; L03.115 Cellulitis of right lower limb; L89.322 Pressure ulcer of left buttock, stage 2; L89.312 Pressure ulcer of right buttock, stage 2; L89.102 Pressure ulcer of unspecified part of back, stage 2; L89.892 Pressure ulcer of other site, stage 2; B95.4 Other streptococcus as the cause of diseases classified elsewhere; B96.1 Klebsiella pneumoniae [K. pneumoniae] as the cause of diseases classified elsewhere; B95.2 Enterococcus as the cause of diseases classified elsewhere; B95.61 Methicillin susceptible Staphylococcus aureus infection as the cause of diseases classified elsewhere; B96.89 Other specified bacterial agents as the cause of diseases classified elsewhere; I87.2 Venous insufficiency (chronic) (peripheral); I27.81 Cor pulmonale (chronic); R79.89 Other specified abnormal findings of blood chemistry; B37.2 Candidiasis of skin and nail; M79.605 Pain in left leg; L89.619 Pressure ulcer of right heel, unspecified stage; M79.604 Pain in right leg; R32 Unspecified urinary incontinence; E87.6 Hypokalemia; Z74.09 Other reduced mobility; R46.0 Very low level of personal hygiene; L89.629 Pressure ulcer of left heel, unspecified stage; Z73.9 Problem related to life management difficulty, unspecified; L97.229 Non-pressure chronic ulcer of left calf with unspecified severity; L97.219 Non-pressure chronic ulcer of right calf with unspecified severity; E66.01 Morbid (severe) obesity due to excess calories; R91.8 Other nonspecific abnormal finding of lung field; R00.8 Other abnormalities of heart beat
CPT/HCPCS: 36415; 51701; 71045; 73718; 80048; 80053; 81001; 83605; 83690; 83735; 83880; 84100; 84132; 84443; 84484; 85025; 86140; 87040; 87070; 87077; 87181; 87205; 93005; 93306; 93922; 93970; 94761; 97110; 97161; 97166; 97530; 97535; 99284; 99285; A6250; A9270; J1650; J3370; J7120; U0004; 81003; 87086

== ENCOUNTER 2020-03-23 10:50 | Outpatient (CLI) | payer MEDICARE | END 2020-03-23 10:51 | LOC: EMS 10:50 | PROVIDERS: ATTEND Surgery | DX: L03.119 Cellulitis of unspecified part of limb (principal); L89.629 Pressure ulcer of left heel, unspecified stage; L89.619 Pressure ulcer of right heel, unspecified stage; R53.1 Weakness | CPT/HCPCS: A0425; A0428 ==